=== PATIENT | male | born 1960 | race Caucasian/White ===

== ENCOUNTER 2019-08-17 11:28 | Emergency (ER) | payer OTHER ==
--- NOTE | 2019-08-17 12:19 | ER Document Report ---
ED Medical Screen (RME) - General Chief Complaint: Wound Infection Stated Complaint: OPEN WOUND Time Seen by Provider: 08/17/19 12:07 Notes: Patient is a 59-year-old male who presents emergency department with a chief complaint of right leg pain and swelling. Patient reports he has been battling the redness over the past 6 months to his right lower extremity. Patient reports initially he was on hospice but is not currently. Patient reports he was on hospice due to an enlarged heart. Patient was diagnosed with a DVT in the right lower extremity 6 months ago and was placed on Xarelto. Patient reports he has been off the Xarelto for 1 to 2 months. Patient reports low- grade fevers at home. Patient reports open wound to the right ankle. States this is not draining. TRAVEL OUTSIDE OF THE [place] IN LAST 30 DAYS: No Past Medical History - Social History Chew tobacco use (# tins/day): No Frequency of alcohol use: None Drug Abuse: None Physical Exam - Vital signs Vitals: Temp Pulse Resp BP Pulse Ox 98.5 F 93 20 175/85 H 99 08/17/19 11:49 08/17/19 11:49 08/17/19 11:49 08/17/19 11:49 08/17/19 11:49 - Extremities Notes: Erythematous, flaking skin, pitting edema noted to the right lower extremity. There is an open wound to the right lateral malleolus and a developing skin breakdown to the medial malleolus. Course - Re-evaluation Re-evalutation: 08/17/19 12:19 I have greeted and performed a rapid initial assessment of this patient. A comprehensive ED assessment and evaluation of the patient, analysis of test results and completion of the medical decision making process will be conducted by additional ED providers. - Vital Signs Vital signs: Temp Pulse Resp BP Pulse Ox 98.5 F 93 20 175/85 H 99 08/17/19 11:49 08/17/19 11:49 08/17/19 11:49 08/17/19 11:49 08/17/19 11:49
[2019-08-17 12:44] LABS: APPEARANCE,URINE CLEAR; BILIRUBIN,URINE NEGATIVE (NEGATIVE); COLOR,URINE YELLOW; GLUCOSE, URINE 50 mg/dL (NEGATIVE); KETONES,URINE NEGATIVE (NEGATIVE); LEUKOCYTE ESTERASE,URINE NEGATIVE (NEGATIVE); NITRITE,URINE NEGATIVE (NEGATIVE); PROTEIN,URINE >=500 mg/dL (NEGATIVE); URINE SPECIFIC GRAVITY 1.012; UROBILINOGEN,URINE NEGATIVE mg/dL (<2.0)
--- NOTE | 2019-08-17 12:47 | RADIOLOGY REPORT (SQ) ---
EXAM DESCRIPTION: ANKLE RIGHT COMPLETE COMPLETED DATE/TIME: 08/17/2019 12:38 pm REASON FOR STUDY: + pain, swelling, redness, open wound COMPARISON: None. NUMBER OF VIEWS: Three views. TECHNIQUE: AP, lateral, and oblique radiographic images acquired of the right ankle. LIMITATIONS: None. FINDINGS: MINERALIZATION: Normal. BONES: No acute fracture or dislocation. No worrisome bone lesions. JOINTS: No effusions. SOFT TISSUES: Soft tissue swelling about the medial ankle. Apparent soft tissue defect at the latera l ankle just superior to the lateral malleolus. No radiopaque foreign body. OTHER: Multiple circular radiodensities overlie the foot external to the patient. IMPRESSION: No evidence of acute bony abnormality or definitive findings of osteomyelitis. Soft tissue swelling about the medial ankle. Soft tissue defect along the lateral ankle, just superi or to the lateral malleolus. TECHNICAL DOCUMENTATION: JOB ID: [id number] [employer]- All Rights Reserved Reading location - IP/workstation name: [email or web address]
--- NOTE | 2019-08-17 12:49 | RADIOLOGY REPORT (SQ) ---
EXAM DESCRIPTION: FOOT RIGHT COMPLETE COMPLETED DATE/TIME: 08/17/2019 12:38 pm REASON FOR STUDY: + pain, swelling, redness, open wound COMPARISON: None. NUMBER OF VIEWS: Three views. TECHNIQUE: AP, lateral and oblique radiographic images acquired of the right foot. LIMITATIONS: None. FINDINGS: MINERALIZATION: Normal. BONES: No acute fracture or dislocation. No worrisome bone lesions. No definitive findings of osteo myelitis. Degenerative changes at scattered MTP and interphalangeal joints, greatest at the 1st MTP joint. Trigonal process. JOINTS: No dislocation. SOFT TISSUES: Soft tissue swelling about the foot. OTHER: No other significant finding. IMPRESSION: Soft tissue swelling about the foot without evidence of acute bony abnormality. TECHNICAL DOCUMENTATION: JOB ID: [id number] [employer]- All Rights Reserved Reading location - IP/workstation name: [email or web address]
[2019-08-17 12:59] LABS: ABSOLUTE BASOPHILS # (AUTO) 0.1 10^3/uL (0.0-0.2); ABSOLUTE EOSINOPHILS # (AUTO) 0.8 10^3/uL (0.0-0.6); ABSOLUTE LYMPHOCYTES (AUTO) 1.7 10^3/uL (0.5-4.7); ABSOLUTE MONOCYTES (AUTO) 0.8 10^3/uL (0.1-1.4); BASOPHILS % (AUTO) 0.9 % (0-2); EOSINOPHILS % (AUTO) 6.8 % (0-6); HEMATOCRIT 39.5 % (37.9-51.0); HEMOGLOBIN 13.7 g/dL (13.5-17.0); LYMPHOCYTES % (AUTO) 14.9 % (13-45); MEAN CORPUSCULAR HGB CONC 34.8 g/dL (32.0-36.0); MEAN CORPUSCULAR VOLUME 92 fl (80-97); MONOCYTES % (AUTO) 7.3 % (3-13); PLATELET COUNT 292 10^3/uL (150-450); RED BLOOD COUNT 4.29 10^6/uL (4.35-5.55); RED CELL DISTRIBUTION WIDTH 13.7 % (11.5-14.0); SEGMENTED NEUTROPHILS % (AUTO) 70.1 % (42-78); TOTAL CELLS COUNTED % (AUTO) 100 %; WHITE BLOOD COUNT 11.3 10^3/uL (4.0-10.5)
[2019-08-17 13:14] LABS: ALBUMIN 3.3 g/dL (3.5-5.0); ALKALINE PHOSPHATASE 105 U/L (38-126); ANION GAP 6 (5-19); ASPARTATE AMINO TRANSFERASE 19 U/L (17-59); BILIRUBIN,DIRECT 0.2 mg/dL (0.0-0.4); BILIRUBIN,TOTAL 0.5 mg/dL (0.2-1.3); BLOOD UREA NITROGEN 16 mg/dL (7-20); CARBON DIOXIDE 24 mmol/L (22-30); CHLORIDE 107 mmol/L (98-107); GLUCOSE 166 mg/dL (75-110); POTASSIUM 4.8 mmol/L (3.6-5.0); TOTAL PROTEIN 6.1 g/dL (6.3-8.2)
[2019-08-17] MEDS ORDERED: MORPHINE SULFATE 10 MG/ML INJ IV ONE ×2 (14:10→16:29)
--- NOTE | 2019-08-17 15:01 | RADIOLOGY REPORT (SQ) ---
EXAM DESCRIPTION: CHEST SINGLE VIEW COMPLETED DATE/TIME: 08/17/2019 2:44 pm REASON FOR STUDY: dyspnea COMPARISON: None. EXAM PARAMETERS: NUMBER OF VIEWS: One view. TECHNIQUE: Single frontal radiographic view of the chest acquired. RADIATION DOSE: NA LIMITATIONS: None. FINDINGS: LUNGS AND PLEURA: No opacities, masses or pneumothorax. No pleural effusion. MEDIASTINUM AND HILAR STRUCTURES: No masses. Contour normal. HEART AND VASCULAR STRUCTURES: Heart normal in size. Normal vasculature. BONES: No acute findings. HARDWARE: None in the chest. OTHER: No other significant finding. IMPRESSION: NO ACUTE RADIOGRAPHIC FINDING IN THE CHEST. TECHNICAL DOCUMENTATION: JOB ID: [id number] [employer]- All Rights Reserved Reading location - IP/workstation name: [email or web address]
--- NOTE | 2019-08-17 15:05 | EKG REPORT ---
SEVERITY:- ABNORMAL ECG - SINUS RHYTHM RIGHT BUNDLE BRANCH BLOCK ANTERIOR INFARCT, AGE INDETERMINATE : Confirmed by: Alexandra Whitehead MD 17-Aug-2019 15:04:25
--- NOTE | 2019-08-17 15:47 | RADIOLOGY REPORT (SQ) ---
EXAM DESCRIPTION: CTA CHEST COMPLETED DATE/TIME: 08/17/2019 3:28 pm REASON FOR STUDY: dyspnea, history of PE/DVT COMPARISON: Same day radiograph. TECHNIQUE: CT scan of the chest performed using helical scanning technique with dynamic intravenous contrast injection. Images reviewed with lung, soft tissue and bone windows. Reconstructed coronal and sagittal MPR images reviewed. Additional 3 dimensional post-processing performed to develop Maximal Intensity Projection images (OR P). All images stored on PACS. All CT scanners at this facility use dose modulation, iterative reconstruction, and/or weight based d osing when appropriate to reduce radiation dose to as low as reasonably achievable (ALARA). [facility]: Dose Right [facility]: CareDose [facility]: Dose Right [facility]: Teradose 4D [facility]: Audience.fm CONTRAST TYPE AND DOSE: contrast/concentration: Isovue 350.00 mg/ml; Total Contrast Delivered: 70.0 ml; Total Saline Delivered: 80.0 ml Contrast bolus optimized for the pulmonary arteries. Not diagnostic for the aorta. RENAL FUNCTION: Creatinine 0.81 RADIATION DOSE: CT Rad equipment meets quality standard of care and radiation dose reduction techniq ues were employed. CTDIvol: 19.8 - 25.5 mGy. DLP: 992 mGy-cm. . LIMITATIONS: None. FINDINGS: LUNGS AND PLEURA: No masses, infiltrates, or pneumothorax. No pleural effusions or pleura l calcifications. AORTA AND GREAT VESSELS: No aneurysm. Contrast bolus not optimized for the aorta. HEART: No pericardial effusion. Scattered coronary atherosclerosis. Likely LAD stent. PULMONARY ARTERIES: No emboli visualized in the main pulmonary arteries or the segmental branches. HILAR AND MEDIASTINAL STRUCTURES: No identified masses or abnormal nodes. HARDWARE: None in the chest. UPPER ABDOMEN: No significant findings. Limited exam. THYROID AND OTHER SOFT TISSUES: No masses. No adenopathy. BONES: Mild serpiginous thoracic curvature. 3D MIPS: Confirm above findings. OTHER: No other significant finding. IMPRESSION: No evidence of pulmonary embolus or other acute intrathoracic process. COMMENT: Quality ID # [id number]: Final reports with documentation of one or more dose reduction techniques (e.g., Automated exposure control, adjustment of the mA and/or kV according to patient size, use of iterative reconstruction technique) TECHNICAL DOCUMENTATION: JOB ID: [id number] [employer]- All Rights Reserved Reading location - IP/workstation name: [email or web address]
--- NOTE | 2019-08-17 16:13 | RADIOLOGY REPORT (SQ) ---
EXAM DESCRIPTION: VENOUS UNILATERAL LOWER COMPLETED DATE/TIME: 08/17/2019 3:54 pm REASON FOR STUDY: + RLE swelling, redness, hx. clots COMPARISON: CT chest 08/17/2019 TECHNIQUE: Dynamic and static white scale and color images acquired of the right leg venous system. S elected spectral images acquired with additional compression and augmentation maneuvers. The contrala teral common femoral vein and saphenofemoral junction were also imaged. Images stored on PACS. LIMITATIONS: None. FINDINGS: RIGHT COMMON FEMORAL: Normal phasicity, compression and augmentation. No visualized echogenic material on g ray scale. No defects on color images. FEMORAL: The mid and distal superficial femoral vein is occluded with hypoechoic clot, multiple colla terals and varicosities are present suggesting this is a chronic thrombosis. POPLITEAL: Normal compression, augmentation. No visualized echogenic material on white scale. No defec ts on color images. CALF VESSELS: Normal compression, augmentation. No visualized echogenic material on white scale. No de fects on color images. GSV and SSV: Normal compression, augmentation. No visualized echogenic material on white scale. No def ects on color images. ANY DEEP VENOUS INSUFFICIENCY: Not evaluated. ANY EVIDENCE OF POPLITEAL CYST: No. OTHER: No other significant finding. LEFT COMMON FEMORAL VEIN AND SAPHENOFEMORAL JUNCTION: Normal phasicity, compression and augmentation. No visualized echogenic material on white scale. No de fects on color images. IMPRESSION: Mid and distal superficial femoral vein is occluded with hypoechoic clot. There are col lateral venous vessels in the deep right thigh suggesting this is a chronic finding TECHNICAL DOCUMENTATION: JOB ID: [id number] [employer]- All Rights Reserved Reading location - IP/workstation name: [email or web address]
--- NOTE | 2019-08-17 17:19 | ER Document Report ---
ED General - General Chief Complaint: Wound Infection Stated Complaint: OPEN WOUND Time Seen by Provider: 08/17/19 12:07 Primary Care Provider: ANA OROSCO MD [ACTIVE STAFF] - Follow up as needed Notes: 59-year-old male presents with right lower extremity swelling/redness for 6 months. Patient also states he has an open necrotic ulcer to the right lateral malleolus that has been ongoing for 3 weeks. 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 Patient also states he is having some dyspnea for the past few days. Patient has a history of DVT and PE. Patient was on Xarelto however has not been on this for the past 2 months. Patient states his prescription was never renewed so he stopped taking it. Patient recently moved to the area and has not established care with a PCP. Patient denies any fevers, chills, nausea/vomiting, abdominal pain. TRAVEL OUTSIDE OF THE [place] IN LAST 30 DAYS: No Past Medical History - Social History Smoking Status: Never Smoker Chew tobacco use (# tins/day): No Frequency of alcohol use: None Drug Abuse: None Family History: None Patient has suicidal ideation: No Patient has homicidal ideation: No Review of Systems - Review of Systems Notes: Constitutional: Negative for fever. HENT: Negative for sore throat. Eyes: Negative for visual changes. Cardiovascular: Negative for chest pain. Respiratory: Negative for shortness of breath. Gastrointestinal: Negative for abdominal pain, vomiting or diarrhea. Genitourinary: Negative for dysuria. Musculoskeletal: Negative for back pain. Skin: Positive for necrotic ulcer. Negative for rash. Neurological: Negative for headaches, weakness or numbness. 10 point ROS negative except as marked above and in HPI. Physical Exam - Vital signs Vitals: Temp Pulse Resp BP Pulse Ox 98.5 F 93 20 175/85 H 99 08/17/19 11:49 08/17/19 11:49 08/17/19 11:49 08/17/19 11:49 08/17/19 11:49 - Notes Notes: GENERAL: Well-appearing, well-nourished and in no acute distress. HEAD: Atraumatic, normocephalic. EYES: Pupils equal round and reactive to light, extraocular movements intact, sclera anicteric, conjunctiva are normal. ENT: TMs normal, nares patent, oropharynx clear without exudates. Moist mucous membranes. NECK: Normal range of motion, supple without lymphadenopathy or JVD. LUNGS: Breath sounds clear to auscultation bilaterally and equal. No wheezes rales or rhonchi. HEART: Regular rate and rhythm without murmurs, rubs or gallops. ABDOMEN: Soft, nontender, normoactive bowel sounds. No guarding, no rebound. No masses appreciated. EXTREMITIES: Amputation on left side. Right lower leg is swollen with erythema and weeping. Necrotic ulcer on right lateral malleolus, approximately 3 cm, with minimal weeping. No pus drainage. Not hot to touch. NEUROLOGICAL: Cranial nerves II through XII grossly intact. Normal speech. PSYCH: Normal mood, normal affect. SKIN: Warm, Dry, normal turgor, no rashes or lesions noted. Course - Re-evaluation Re-evalutation: 08/17/19 59 y/o male presents for chronic skin infection to right lower leg and dyspnea. Nontoxic, well appearing. Afebrile. Pt also has a necrotic ulcer to right lateral malleolus. Pt states he had home health nurse who used to come out for wound care before he moved to [place]. Pt also states it has been "a long time" since he has been on antibiotics. Hx PE and DVT. Workup initiated to include infectious cause, DVT/PE rule out, and cardiac. Ultrasound shows DVT with collaterals appearing to be chronic in nature. CTA chest/abdomen showed no PE. No leukocytosis. Troponin 0.016. CMP reassuring. CXR negative. EKG shows no STEMI. Coordination of care also consulted and pt was given resources for PCP and insurance. Discussed all results with pt. I do not feel pt meets criteria for admission at this time. Discussed with attending, Dr. Borja, who agrees with plan of care. Discussed need for pt to follow up outpatient for management of chronic ulcer. Strict return precautions given/discussed. Pt given prescription for Keflex and instructed to finish all doses unless changed based on wound culture. Pt voices understanding and agrees with plan of care. - Vital Signs Vital signs: Temp Pulse Resp BP Pulse Ox 98.1 F 86 18 169/78 H 98 08/17/19 16:28 08/17/19 16:28 08/17/19 16:28 08/17/19 16:28 08/17/19 16:28 - Laboratory Result Diagrams: 08/17/19 12:40 08/17/19 12:40 Laboratory results interpreted by me: 08/17/19 08/17/19 08/17/19 11:45 12:40 12:40 WBC 11.3 H RBC 4.29 L Eos % (Auto) 6.8 H Absolute Eos (auto) 0.8 H Glucose 166 H Total Protein 6.1 L Albumin 3.3 L Urine Protein >=500 H Urine Glucose (UA) 50 H Urine Blood MODERATE H Discharge - Discharge Clinical Impression: Chronic ulcer of right lower extremity Qualifiers: Non-pressure ulcer stage: limited to breakdown of skin Qualified Code(s): L97.911 - Non-pressure chronic ulcer of unspecified part of right lower leg limited to breakdown of skin Condition: Stable Disposition: HOME, SELF-CARE Instructions: Antibiotic Ointment Protection ([facility]), Foot or Leg Ulcer ([facility]), Soap Cleansing ([facility]) Additional Instructions: Take Keflex as prescribed and finish all doses unless we call you to change your antibiotic based on your wound culture. Please follow up with PCP as referred in 3-5 days. Return to ER for any worsening symptoms, including worsening swelling, worsening redness, worsening ulcer, fever, pus drainage, or any other symptoms that are concerning to you. Prescriptions: Cephalexin [Keflex] 500 mg PO Q6 #40 capsule Referrals: ANA OROSCO MD [ACTIVE STAFF] - Follow up as needed
[2019-08-17 17:52] VITALS: BP 160/81
== END 2019-08-17 17:53 | disposition home or self-care (01) ==
LOC: ER 11:28
DX: L97.911 Non-pressure chronic ulcer of unspecified part of right lower leg limited to breakdown of skin (principal); S91.001A Unspecified open wound, right ankle, initial encounter; R06.00 Dyspnea, unspecified; X58.XXXA Exposure to other specified factors, initial encounter; Z89.512 Acquired absence of left leg below knee; Z86.718 Personal history of other venous thrombosis and embolism; Z86.711 Personal history of pulmonary embolism
CPT/HCPCS: 93005; 96376; 99284; 96374; 36415; 87040; 87070; 87205; 83605; 85025; 87077; 80053; 81001; 84484; 87186; 93971; 73610; 71045; 73630; 71275; 93010; J2270

== ENCOUNTER 2020-01-05 08:46 | Inpatient (IN) | payer MEDICAID, OTHER ==
[2020-01-05] MEDS ORDERED: NITROGLYCERIN 2% OINTMENT 1 GM PACKET TP ONE (10:24)
--- NOTE | 2020-01-05 10:27 | RADIOLOGY REPORT (SQ) ---
EXAM DESCRIPTION: CHEST SINGLE VIEW IMAGES COMPLETED DATE/TIME: 01/05/2020 9:30 am REASON FOR STUDY: cough COMPARISON: 08/17/2019 EXAM PARAMETERS: NUMBER OF VIEWS: One view. TECHNIQUE: Single frontal radiographic view of the chest acquired. RADIATION DOSE: NA LIMITATIONS: None. FINDINGS: LUNGS AND PLEURA: Patchy left basilar opacities with small left pleural effusion. Mild in terstitial prominence and central vascular congestion bilaterally. MEDIASTINUM AND HILAR STRUCTURES: No masses. Contour normal. HEART AND VASCULAR STRUCTURES: Normal heart size. Mild central vascular prominence. BONES: No acute findings. HARDWARE: None in the chest. OTHER: No other significant finding. IMPRESSION: Patchy left basilar opacities and small left effusion suggestive of pneumonia. Mild central vascular congestion without overt edema. TECHNICAL DOCUMENTATION: JOB ID: [id number] [employer]- All Rights Reserved Reading location - IP/workstation name: [email or web address]
[2020-01-05 11:40] LABS: ABSOLUTE BASOPHILS # (AUTO) 0.1 10^3/uL (0.0-0.2); ABSOLUTE EOSINOPHILS # (AUTO) 0.2 10^3/uL (0.0-0.6); ABSOLUTE LYMPHOCYTES (AUTO) 1.3 10^3/uL (0.5-4.7); ABSOLUTE MONOCYTES (AUTO) 0.5 10^3/uL (0.1-1.4); ABSOLUTE NEUT (AUTO) 6.1 10^3/uL (1.7-8.2); EOSINOPHILS % (AUTO) 2.6 % (0-6); HEMATOCRIT 41.5 % (37.9-51.0); HEMOGLOBIN 14.3 g/dL (13.5-17.0); LYMPHOCYTES % (AUTO) 15.6 % (13-45); MEAN CORPUSCULAR HEMOGLOBIN 30.4 pg (27.0-33.4); MEAN CORPUSCULAR HGB CONC 34.5 g/dL (32.0-36.0); MEAN CORPUSCULAR VOLUME 88 fl (80-97); MONOCYTES % (AUTO) 5.7 % (3-13); PLATELET COUNT 331 10^3/uL (150-450); RED CELL DISTRIBUTION WIDTH 13.3 % (11.5-14.0); SEGMENTED NEUTROPHILS % (AUTO) 75.1 % (42-78); TOTAL CELLS COUNTED % (AUTO) 100 %; WHITE BLOOD COUNT 8.1 10^3/uL (4.0-10.5)
[2020-01-05 11:41] LABS: VENOUS BLOOD BASE EXCESS -0.8 mmol/L; VENOUS BLOOD HCO3 28.1 mmol/L (20-32); VENOUS BLOOD PCO2 62.6 mmHg (35-63); VENOUS BLOOD PH 7.27 (7.30-7.42)
[2020-01-05] MEDS ORDERED: CEFTRIAXONE 2 GM/D5W RTU 2 GM/50 ML RTUPB IV ONE (11:42)
[2020-01-05] MEDS ORDERED: AZITHROMYCIN 250 MG TABLET PO ONE (11:42)
[2020-01-05 11:59] LABS: ALBUMIN 3.3 g/dL (3.5-5.0); ALKALINE PHOSPHATASE 141 U/L (38-126); ANION GAP 7 (5-19); ASPARTATE AMINO TRANSFERASE 23 U/L (17-59); BILIRUBIN,TOTAL 0.6 mg/dL (0.2-1.3); BLOOD UREA NITROGEN 20 mg/dL (7-20); CALCIUM 8.8 mg/dL (8.4-10.2); CARBON DIOXIDE 26 mmol/L (22-30); CHLORIDE 106 mmol/L (98-107); GLUCOSE 119 mg/dL (75-110); POTASSIUM 4.2 mmol/L (3.6-5.0)
[2020-01-05 12:12] LABS: TROPONIN I 0.035 ng/mL
--- NOTE | 2020-01-05 12:20 | ER Document Report ---
ED General - General Chief Complaint: Shortness Of Breath Stated Complaint: RESPIRATORY DISTRESS Time Seen by Provider: 01/05/20 08:47 Mode of Arrival: Ambulatory Information source: Patient TRAVEL OUTSIDE OF THE [place] IN LAST 30 DAYS: No - HPI Notes: Patient is brought in by ambulance complaining of several days of shortness of breath. Patient states he has had progressive shortness of breath and cough. Patient states he has had some mild chest pressure and discomfort. Nothing makes this better or worse. Is been mild to moderate intensity. It radiates across his chest. Is with exertion and better with rest. No fevers. No known coronavirus exposures. Paramedics state they found the patient with a room air saturation of 80%. They gave the patient a nebulizer treatment and placed on CPAP with significant improvement of his oxygen saturations into the low 90% range. - Related Data Allergies/Adverse Reactions: No Known Allergies Allergy (Unverified 01/05/20 09:23) Past Medical History - General Information source: Patient - Social History Smoking Status: Former Smoker Chew tobacco use (# tins/day): No Frequency of alcohol use: None Drug Abuse: None Family History: None Patient has suicidal ideation: No Patient has homicidal ideation: No Review of Systems - Review of Systems Constitutional: Malaise, Weakness. denies: Chills, Fever Cardiovascular: Chest pain. denies: Palpitations Respiratory: Cough, Short of breath -: Yes All other systems reviewed and negative Physical Exam - Vital signs Vitals: Pulse Ox 100 01/05/20 08:48 Interpretation: Tachypneic - General General appearance: Alert, Anxious In distress: Mild - HEENT Head: Normocephalic, Atraumatic Eyes: Normal Pupils: PERRL - Respiratory Respiratory status: Respiratory distress - mild Chest status: Nontender Breath sounds: Decreased air movement Chest palpation: Normal - Cardiovascular Rhythm: Regular Heart sounds: Normal auscultation Murmur: No - Abdominal Inspection: Normal Distension: No distension Bowel sounds: Normal Tenderness: Nontender Organomegaly: No organomegaly - Back Back: Normal, Nontender - Extremities General upper extremity: Normal inspection, Nontender, Normal color, Normal ROM, Normal temperature General lower extremity: Normal inspection, Nontender, Normal color, Normal ROM, Normal temperature, Normal weight bearing. No: Funmilayo's sign - Neurological Neuro grossly intact: Yes Cognition: Normal Orientation: AAOx4 Wilfred Coma Scale Eye Opening: Spontaneous [place] Coma Scale Verbal: Oriented [place] Coma Scale Motor: Obeys Commands Wilfred Coma Scale Total: 15 Speech: Normal Motor strength normal: LUE, RUE, LLE, RLE Sensory: Normal - Psychological Associated symptoms: Normal affect, Normal mood - Skin Skin Temperature: Warm Skin Moisture: Dry Skin Color: Normal Course - Re-evaluation Re-evalutation: Patient presents with shortness of breath. On arrival patient was on CPAP with saturations in low 90s but still tachypneic. Patient was placed on BiPAP with significant improvement of his respiratory rate and work of breathing. Patient has no known COVID exposures and does not have imaging consistent with COVID. I have not ordered a COVID test to be conservative but I doubt this is the cause of the patient's symptoms. He does have a pneumonia on x-ray and I have treated the patient with antibiotics. I have withheld fluids at this time. Because patient is not tachycardic. His blood pressure is actually elevated. In addition he has an elevated BNP. I have also held off on Lasix since the patient does not have any pulmonary edema on x-ray nor does he sound as if he has pulmonary edema. - Vital Signs Vital signs: Temp Pulse Resp BP Pulse Ox 98.4 F 20 177/85 H 93 01/05/20 09:17 01/05/20 10:19 01/05/20 10:19 01/05/20 10:19 - Laboratory Result Diagrams: 01/05/20 11:10 01/05/20 11:10 Laboratory results interpreted by me: 01/05/20 01/05/20 01/05/20 11:10 11:10 11:10 VBG pH 7.27 L Glucose 119 H Alkaline Phosphatase 141 H NT-Pro-B Natriuret Pep 6630 H Albumin 3.3 L - Diagnostic Test Radiology reviewed: Image reviewed, Reports reviewed - EKG Interpretation by Me EKG shows normal: Sinus rhythm Rate: Normal - 91 Rhythm: NSR [place]/QRS: No: [facility] Critical Care Note - Critical Care Note Total time excluding time spent on procedures (mins): 50 Comments: Approximately 50 minutes of critical care time were spent on this patient managing his hypercapnic, hypoxic pneumonia. This was spent doing multiple reassessments. It was spent discussing with consultants. It was spent reviewin g imaging and laboratory values as well as old records. Discharge - Discharge Clinical Impression: Hypoxia, Acute hypercapnic respiratory failure Pneumonia Qualifiers: Pneumonia type: due to unspecified organism Laterality: left Lung location: lower lobe of lung Qualified Code(s): J18.9 - Pneumonia, unspecified organism Condition: Serious Disposition: ADMITTED INPATIENT Admitting Provider: Linda (Hospitalist) Unit Admitted: [facility]
[2020-01-05] MEDS ORDERED: ONDANSETRON HCL INJ/PF 4 MG/2 ML SDV IV PRN (12:58)
[2020-01-05] MEDS ORDERED: ONDANSETRON 4 MG TAB.RAPDIS PO PRN (12:58)
[2020-01-05 13:11] LABS: APPEARANCE,URINE SLIGHTLY-CLOUDY; BILIRUBIN,URINE NEGATIVE (NEGATIVE); COLOR,URINE YELLOW; GLUCOSE, URINE 50 mg/dL (NEGATIVE); KETONES,URINE NEGATIVE (NEGATIVE); LEUKOCYTE ESTERASE,URINE NEGATIVE (NEGATIVE); NITRITE,URINE NEGATIVE (NEGATIVE); PROTEIN,URINE >=500 mg/dL (NEGATIVE); URINE SPECIFIC GRAVITY 1.022; UROBILINOGEN,URINE NEGATIVE mg/dL (<2.0)
[2020-01-05 13:32] LABS: URINE AMPHETAMINES SCREEN NEGATIVE; URINE BARBITURATES SCREEN NEGATIVE; URINE BENZODIAZEPINES SCREEN NEGATIVE; URINE COCAINE SCREEN NEGATIVE; URINE MARIJUANA (THC) SCREEN NEGATIVE; URINE METHADONE SCREEN NEGATIVE; URINE PHENCYCLIDINE SCREEN NEGATIVE
[2020-01-05 14:02] LABS: BLOOD UREA NITROGEN 19 mg/dL (7-20); CARBON DIOXIDE 26 mmol/L (22-30); CHLORIDE 109 mmol/L (98-107); GLUCOSE 109 mg/dL (75-110); POTASSIUM 3.8 mmol/L (3.6-5.0)
[2020-01-05 14:12] LABS: ANION GAP 2 (5-19)
[2020-01-05 15:32] LABS: A TYPE INFLUENZA AG NEGATIVE (NEGATIVE); B INFLUENZA AG NEGATIVE (NEGATIVE)
[2020-01-05] MEDS ORDERED: ALBUTEROL SULFATE HFA (90 MCG/PUFF) 8 GM MDI IH PRN (17:55)
--- NOTE | 2020-01-05 18:31 | PDOC H&P ---
History of Present Illness Admission Date/PCP: 01/05/20 13:14 History of Present Illness: CHERELLE VALDIVIA is a 59 year old male with past medical history of HTN, HLD, diet- controlled T2DM, COPD, CAD, history of [place] status post stents, tobacco abuse who presents after 2 weeks progressive shortness of breath/RCUZ consistent with previous COPD exacerbations. Per patient, he is also been out of all of his medications for at least 3 weeks which he states is due to [facility] refusing to fill his medications which were reportedly labeled that they could be refilled another 6 times before needing approval. On admission, patient is afebrile with a normal WBC. UA showed significant proteinuria and moderate blood but did not show infection. Chest x-ray showed patchy left basilar opacities and small left effusion suggestive of pneumonia as well as mild central vascular congestion without overt edema. Patient admitted for suspected COPD exacerbation versus CHF exacerbation versus coronavirus (notably less likely given lack of fever or lymphopenia or new/worse cough). Coronavirus swab sent and is pending on admission. Past Medical History Cardiac Medical History: Reports: Coronary Artery Disease, Myocardial Infarction, Hyperlipidema, Hypertension Pulmonary Medical History: Reports: Chronic Obstructive Pulmonary Disease (COPD), Respiratory Failure Neurological Medical History: Reports: Ischemic CVA Endocrine Medical History: Reports: Diabetes Mellitus Type 2 - Diet-controlled Renal/ Medical History: Reports: None Malignancy Medical History: Reports: None GI Medical History: Reports: None Psychiatric Medical History: Reports: Depression, Tobacco Dependency Past Surgical History Past Surgical History: Reports: Coronary Stent Social History Information Source: Patient, Emergency Med Personnel, [facility] Records Lives with: Family Smoking Status: Current Some Day Smoker Electronic Cigarette use?: No Frequency of Alcohol Use: None Hx Recreational Drug Use: No Drugs: None Hx Prescription Drug Abuse: No - Advance Directive Resuscitation Status: Do Not Resuscitate Surrogate healthcare decision maker:: Daughter María Elena Family History Family History: None, CAD, CVA, Hypertension, Malignancy Parental Family History Reviewed: Yes Children Family History Reviewed: Yes Sibling(s) Family History Reviewed.: Yes Medication/Allergy Home Medications: Cephalexin [Keflex] 500 mg PO Q6 #40 capsule 08/17/19 Allergies/Adverse Reactions: No Known Allergies Allergy (Unverified 01/05/20 09:23) Review of Systems All systems: reviewed and no additional remarkable complaints except as stated - Per HPI, otherwise negative Physical Exam Vital Signs: Temp Pulse Resp BP Pulse Ox 98.7 F 90 19 156/91 H 95 01/05/20 15:21 01/05/20 16:00 01/05/20 15:21 01/05/20 15:21 01/05/20 15:21 Intake & Output 01/04/20 01/05/20 01/06/20 06:59 06:59 06:59 Intake Total 50 Balance 50 Weight 101.151 kg General appearance: PRESENT: no acute distress, well-developed, well-nourished Head exam: PRESENT: atraumatic, normocephalic Eye exam: PRESENT: conjunctiva pink Mouth exam: PRESENT: moist Respiratory exam: PRESENT: crackles - Mild, unlabored, wheezes. ABSENT: accessory muscle use, tachypnea Cardiovascular exam: PRESENT: RRR. ABSENT: diastolic murmur, rubs, systolic murmur GI/Abdominal exam: PRESENT: normal bowel sounds, soft. ABSENT: distended, guarding, mass, organolmegaly, rebound, tenderness Rectal exam: PRESENT: deferred Extremities exam: PRESENT: pedal edema, +2 edema Musculoskeletal exam: PRESENT: other - LLE amputation Neurological exam: PRESENT: alert, awake, oriented to person, oriented to place, oriented to time, oriented to situation Psychiatric exam: PRESENT: appropriate affect, normal mood Skin exam: PRESENT: dry, intact, warm Results Laboratory Results: 01/05/20 11:10 01/05/20 13:27 01/05/20 01/05/20 01/05/20 11:10 11:10 11:10 WBC 8.1 RBC 4.70 Hgb 14.3 Hct 41.5 MCV 88 MCH 30.4 MCHC 34.5 RDW 13.3 Plt Count 331 Seg Neutrophils % 75.1 VBG pH VBG pCO2 VBG HCO3 VBG Base Excess Sodium 138.6 Potassium 4.2 Chloride 106 Carbon Dioxide 26 Anion Gap 7 BUN 20 Creatinine 1.01 Est GFR ( Amer) > 60 Glucose 119 H Lactic Acid 1.0 Calcium 8.8 Total Bilirubin 0.6 AST 23 Alkaline Phosphatase 141 H Total Protein 7.0 Albumin 3.3 L Urine Color Urine Appearance Urine pH Ur Specific [place] Urine Protein Urine Glucose (UA) Urine Ketones Urine Blood Urine Nitrite Ur Leukocyte Esterase Urine WBC (Auto) Urine RBC (Auto) 01/05/20 01/05/20 01/05/20 11:10 12:55 13:27 WBC RBC Hgb Hct MCV MCH MCHC RDW Plt Count Seg Neutrophils % VBG pH 7.27 L VBG pCO2 62.6 VBG HCO3 28.1 VBG Base Excess -0.8 Sodium Potassium Chloride Carbon Dioxide Anion Gap BUN Creatinine Est GFR ( Amer) Glucose Lactic Acid 1.0 Calcium Total Bilirubin AST Alkaline Phosphatase Total Protein Albumin Urine Color YELLOW Urine Appearance SLIGHTLY-CLOUDY Urine pH 5.0 Ur Specific [place] 1.022 Urine Protein >=500 H Urine Glucose (UA) 50 H Urine Ketones NEGATIVE Urine Blood MODERATE H Urine Nitrite NEGATIVE Ur Leukocyte Esterase NEGATIVE Urine WBC (Auto) 4 Urine RBC (Auto) 2 01/05/20 13:27 WBC RBC Hgb Hct MCV MCH MCHC RDW Plt Count Seg Neutrophils % VBG pH VBG pCO2 VBG HCO3 VBG Base Excess Sodium 137.1 Potassium 3.8 Chloride 109 H Carbon Dioxide 26 Anion Gap 2 L BUN 19 Creatinine 0.98 Est GFR ( Amer) > 60 Glucose 109 Lactic Acid Calcium 8.0 L Total Bilirubin AST Alkaline Phosphatase Total Protein Albumin Urine Color Urine Appearance Urine pH Ur Specific [place] Urine Protein Urine Glucose (UA) Urine Ketones Urine Blood Urine Nitrite Ur Leukocyte Esterase Urine WBC (Auto) Urine RBC (Auto) 01/05/20 11:10 Troponin I 0.035 NT-Pro-B Natriuret Pep 6630 H Impressions: Chest X-Ray 01/05/20 08:48 IMPRESSION: Patchy left basilar opacities and small left effusion suggestive of pneumonia. Mild central vascular congestion without overt edema. Assessment and Plan - Diagnosis (1) COPD exacerbation Is this a current diagnosis for this admission?: Yes Plan: Uses 3 L nasal cannula at home at baseline Target 89 to 94% oxygen saturation and COPD patient Avoid nebulizer and BiPAP until we rule out coronavirus Breo and albuterol started 5 days of prednisone steroids Azithromycin (2) Pneumonia Qualifiers: Pneumonia type: due to unspecified organism Laterality: left Lung location: lower lobe of lung Qualified Code(s): J18.9 - Pneumonia, unspecified organism Is this a current diagnosis for this admission?: Yes Plan: Suspect community-acquired versus atypical Seen on chest x-ray Consider CT chest Ceftriaxone/azithromycin Respiratory culture Supplemental oxygen, inhalers, bronchial hygiene as above (3) CAD (coronary artery disease) Is this a current diagnosis for this admission?: Yes Plan: Status post coronary stents per patient Echocardiogram Aspirin/statin, per patient he has been taken off Plavix by his physician for some time now (4) HTN (hypertension) Is this a current diagnosis for this admission?: Yes (5) HLD (hyperlipidemia) Is this a current diagnosis for this admission?: Yes (6) T2DM (type 2 diabetes mellitus) Is this a current diagnosis for this admission?: Yes (7) History of stroke Is this a current diagnosis for this admission?: Yes Plan: Aspirin/statin Has some baseline residual bilateral upper extremity weakness (8) Suspected 2019 novel coronavirus infection Is this a current diagnosis for this admission?: Yes Plan: Coronavirus test sent on admission (9) Acute on chronic respiratory failure with hypoxemia Is this a current diagnosis for this admission?: Yes Plan: Multifactorial due to medication noncompliance, COPD exacerbation, pneumonia Uses 3 L nasal cannula at home at baseline Target 89 to 94% oxygen saturation and COPD patient Avoid nebulizer and BiPAP until we rule out coronavirus Breo and albuterol started 5 days of prednisone steroids (10) COPD (chronic obstructive pulmonary disease) Is this a current diagnosis for this admission?: Yes (11) DVT (deep venous thrombosis) Is this a current diagnosis for this admission?: Yes Plan: Per patient, 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 Patient states he was on Xarelto, but was taken off this medication and has not followed up with his vascular surgeon; he does not know how or why he was taken off this medication BLE PVL to look for DVTs; per patient, these had resolved previously but he feels like they may have returned due to his leg swelling Plan to restart oral anticoagulant if he has DVTs in his legs Get CTPA to rule out PEs as a source of his hypoxemia - Time Time Spent with patient: 35 or more minutes Medications reviewed and adjusted accordingly: Yes Anticipated discharge: Home Within: within 72 hours - Inpatient Certification Based on my medical assessment, after consideration of the patient's comorbidities, presenting symptoms, or acuity I expect that the services needed warrant INPATIENT care.: Yes I certify that my determination is in accordance with my understanding of Medicare's requirements for reasonable and necessary INPATIENT services [42 CFR 412.3e].: Yes Medical Necessity: Significant Comorbidiites Make Outpatient Treatment Too Risk y, Need Close Monitoring Due to Risk of Patient Decompensation, Need for IV Antibiotics, Risk of Complication if Not Cared For in Hospital, Risk of Diagnosis Which Will Require Inpatient Eval/Care/Monitoring
--- NOTE | 2020-01-05 18:32 | ADVANCED CARE ---
- Diagnosis (1) COPD exacerbation Diagnosis Current: Yes (2) Pneumonia Diagnosis Current: Yes (3) CAD (coronary artery disease) Diagnosis Current: Yes (4) HTN (hypertension) Diagnosis Current: Yes (5) HLD (hyperlipidemia) Diagnosis Current: Yes (6) T2DM (type 2 diabetes mellitus) Diagnosis Current: Yes (7) History of stroke Diagnosis Current: Yes (8) Suspected 2019 novel coronavirus infection Diagnosis Current: Yes (9) Acute on chronic respiratory failure with hypoxemia Diagnosis Current: Yes (10) COPD (chronic obstructive pulmonary disease) Diagnosis Current: Yes (11) DVT (deep venous thrombosis) Diagnosis Current: Yes Attendance: Patient Resuscitation Status: Do Not Resuscitate Discussion: All aspects of CODE STATUS discussed including chest compressions/intubation/cardioversion and patient states he would like to be DN R/DNI. He designates his daughter and she has his M POA. Time Spent: 17 minutes
[2020-01-05] MEDS ORDERED: ALBUTEROL SULFATE HFA (90 MCG/PUFF) 200 PUFF/8.5 GM MDI IH PRN (18:49)
--- NOTE | 2020-01-05 21:28 | RADIOLOGY REPORT (SQ) ---
INDICATION: multiple prior dvt. PROCEDURE: Real-time grayscale, color, and pulse Doppler ultrasound imaging of the bilateral lower extremity deep venous system was performed. 65 images. COMPARISON: August 17, 2019 FINDINGS: Right: Nonocclusive thrombus within the common femoral vein. Superficial femoral vein demonstrates thrombus both occlusive and nonocclusive. Popliteal vein demonstrates thrombus both occlusive and nonocclusive. The deep veins of the calf are not well seen. When compared to prior, the thrombus within the common femoral vein appears to be progressive. The popliteal vein thrombosis is also progressive. Left: Nonocclusive thrombus is identified within the common femoral vein. The superficial femoral vein demonstrates both occlusive and nonocclusive thrombus.. This disease is progressive from prior. There is no imaging popliteal and distal. IMPRESSION: Occlusive and nonocclusive deep venous thrombosis identified bilaterally common femoral to distal. This is progressive when compared to prior..
[2020-01-05] MEDS: ATORVASTATIN CALCIUM 40 MG TABLET PO SCH (22:11)
[2020-01-05] MEDS: ENOXAPARIN SODIUM INJ 100 MG/1 ML DISP.SYRIN SUBCUT SCH (22:11)
[2020-01-05] MEDS: FUROSEMIDE INJ/PF 20 MG/2 ML SDV IV SCH (22:13)
--- NOTE | 2020-01-05 23:10 | XCELERA REPORT ---
[address] [address] Transthoracic Echocardiogram Report Name: CHERELLE VALDIVIA Age: 59 yrs Gender: Male : 1960 Patient Status: Inpatient Patient Location: [address] [place] [address] Study Date: 01/05/2020 07:11 PM Height: 72 in Weight: 223 lb BSA: 2.2 m2 Procedure: A complete two-dimensional transthoracic echocardiogram was performed (2D, M-mode, spectral and color flow Doppler). The study was technically difficult with many images being suboptimal in quality. Reason For Study: CHF Ordering Physician: LIBORIO QUISPE Performed By: Heather Burnham Interpretation Summary LEFT VENTRICLE: LV Systolic function: LVEF is felt to be mild depressed at approximately 45%. LV Diastolic Function: Grade II diastolic dysfunction noted. Wall motion : apex not well visualised but is felt to be hypokinetic. Left ventricular chamber size : is within normal limit. Left ventricular wall thickness : is increased indicative of Mild LVH. RIGHT VENTRICLE: RV systolic function : is felt to be within normal limit. Right Ventricle Size : is within normal limits. LEFT ATRIUM size : is mildly dilated. RIGHT ATRIUM size : is within normal limit. INTER ATRIAL SEPTUM : No definite atrial septal defect noted however a small PFO could be missed. AORTIC ROOT : seems to be within normal limits. Ascending aorta is not well visualized. INFERIOR VENA CAVA: borderline dilated with normal respiratory phasic variation. VALVES: MITRAL VALVE : Leaflets are mildly thickened. Mobility seems to be within normal limits. Mitral Regurgitation : trace to mild mitral regurgitation is noted. Mitral Stenosis: No mitral stenosis noted. Mitral valve prolapse : none noted. AORTIC VALVE: seems to be trileaflet with mild thickening but adequate excursion. Aortic stenosis : No aortic stenosis noted. Aortic regurgitation : No aortic incompetence noted. TRICUSPID VALVE : mobility and structures within normal limit. Tricuspid stenosis : no tricuspid stenosis noted. Tricuspid regurgitation : Trace tricuspid regurgitation noted. Estimated RVSP : cannot be accurately commented upon but possibly at upper limit of normal. PULMONARY VALVE : was not well visualized but no significant abnormalities suspected. Pulmonary stenosis : no pulmonary stenosis noted. Pulmonary regurgitation : no significant pulmonary regurgitation noted. MASSES AND THROMBUS : No definite intracardiac thrombus or masses are noted. PERICARDIUM: No pericardial effusion was noted. IMPRESSION : 1. Mild to moderately depressed LVEF, best estimated at approximately 45%. 2. Mild LVH noted 3. Grade II [mild] Diastolic Dysfunction noted. 4. No significant valvular stenosis or regurgitation noted. 5. LA is mildly dilated. 6. Study was technically difficult therefore clinical correlation is requested. MMode/2D Measurements & Calculations RVDd: 2.5 cm LVIDd: 5.3 cm FS: 15.4 % Ao root diam: 2.6 cm IVSd: 1.2 cm LVIDs: 4.5 cm EDV(Teich): 138.1 ml Ao root area: 5.5 cm2 LVPWd: 1.1 cm ESV(Teich): 93.7 ml LA dimension: 3.9 cm EF(Teich): 32.2 % Doppler Measurements & Calculations MV E max urmila: MV P1/2t max urmila: Ao V2 max: LV V1 max P.3 cm/sec 109.7 cm/sec 136.7 cm/sec 5.8 mmHg MV P1/2t: 88.7 msec Ao max PG: LV V1 max: MVA(P1/2t): 2.5 cm2 7.5 mmHg 119.9 cm/sec MV dec slope: 362.2 cm/sec2 MV dec time: 0.11 sec MV P1/2t-pr_phl: 88.7 msec : LIBORIO QUISPE Shyamal
--- NOTE | 2020-01-06 07:21 | EKG REPORT ---
SEVERITY:- ABNORMAL ECG - SINUS RHYTHM CONSIDER ANTEROSEPTAL INFARCT ABNORMAL T, CONSIDER ISCHEMIA, LATERAL LEADS BORDERLINE PROLONGED QT INTERVAL : Confirmed by: Aakash Smyth 06-Jan-2020 07:20:59
[2020-01-06 07:30] LABS: ABSOLUTE BASOPHILS # (AUTO) 0.1 10^3/uL (0.0-0.2); ABSOLUTE EOSINOPHILS # (AUTO) 0.3 10^3/uL (0.0-0.6); ABSOLUTE LYMPHOCYTES (AUTO) 1.3 10^3/uL (0.5-4.7); ABSOLUTE MONOCYTES (AUTO) 0.4 10^3/uL (0.1-1.4); ABSOLUTE NEUT (AUTO) 5.7 10^3/uL (1.7-8.2); BASOPHILS % (AUTO) 1.2 % (0-2); EOSINOPHILS % (AUTO) 4.3 % (0-6); HEMATOCRIT 40.4 % (37.9-51.0); LYMPHOCYTES % (AUTO) 16.4 % (13-45); MEAN CORPUSCULAR HEMOGLOBIN 30.1 pg (27.0-33.4); MEAN CORPUSCULAR HGB CONC 34.6 g/dL (32.0-36.0); MEAN CORPUSCULAR VOLUME 87 fl (80-97); MONOCYTES % (AUTO) 5.6 % (3-13); PLATELET COUNT 359 10^3/uL (150-450); RED BLOOD COUNT 4.64 10^6/uL (4.35-5.55); RED CELL DISTRIBUTION WIDTH 13.1 % (11.5-14.0); SEGMENTED NEUTROPHILS % (AUTO) 72.5 % (42-78); TOTAL CELLS COUNTED % (AUTO) 100 %; WHITE BLOOD COUNT 7.8 10^3/uL (4.0-10.5)
[2020-01-06 07:46] LABS: TRIGLYCERIDES 122 mg/dL (<150)
[2020-01-06 07:57] LABS: DIRECT LDL 177 mg/dL (<100)
[2020-01-06] MEDS ORDERED: DEXTROSE 50%-WATER SYRINGE 25 GM/50 ML DOSE IV PRN (09:00)
[2020-01-06] MEDS ORDERED: GLUCAGON,HUMAN RECOMB 1 MG INJ IM PRN (09:00)
[2020-01-06] MEDS ORDERED: DEXTROSE 40% GEL 15 GM TUBE X 2 PO PRN (09:00)
[2020-01-06] MEDS ORDERED: DEXTROSE 40% GEL 15 GM TUBE PO PRN (09:00)
[2020-01-06] MEDS ORDERED: DEXTROSE 50%-WATER SYRINGE 12.5 GM/25 ML DOSE IV PRN (09:00)
[2020-01-06] MEDS: FLUTICASONE/VILANTEROL 100-25 MCG/DOSE IH SCH (09:45)
[2020-01-06] MEDS: DOCUSATE SODIUM 100 MG CAPSULE PO SCH (09:45)
[2020-01-06] MEDS: ENOXAPARIN SODIUM INJ 100 MG/1 ML DISP.SYRIN SUBCUT SCH ×2 (09:45→21:28)
[2020-01-06] MEDS: FUROSEMIDE INJ/PF 20 MG/2 ML SDV IV SCH (09:45)
[2020-01-06] MEDS: ASPIRIN 81 MG TABLET, CHEWABLE PO SCH (09:45)
[2020-01-06] MEDS ORDERED: AZITHROMYCIN INJ 500 MG VIAL IV SCH (10:00)
[2020-01-06] MEDS ORDERED: LISINOPRIL 10 MG TABLET PO SCH (10:00)
[2020-01-06] MEDS ORDERED: ENOXAPARIN SODIUM INJ 40 MG/0.4 ML DISP.SYRIN SUBCUT SCH (10:00)
[2020-01-06] MEDS: CEFTRIAXONE 2 GM/D5W RTU 2 GM/50 ML RTUPB IV SCH (10:45)
[2020-01-06] MEDS: INSULIN LISPRO 100 UNIT/ML 3 ML VIAL SUBCUT SCH ×3 (12:13→21:31)
--- NOTE | 2020-01-06 14:33 | PDOC PROGRESS REPORT ---
Subjective Progress Note for:: 01/06/20 Subjective:: Patient seems anxious today. I explained his medical problems to him which I suspect he was at least partially aware of but has perhaps chosen to forget about them as he states he is simply trying to focus on spending time with his kids rather than his medical problems. 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 He does have T2DM with an A1c of 7 and I explained to him that diabetes typically does not go away. His lipids are elevated and he is been started on a statin here. PVL of his legs was positive for multiple DVTs. Upon further questioning, patient admits that he has been having recurrent DVT since he was a teenager. This begs the question further why he was ever supposedly taken off his oral anticoagulant given he denies any history of significant bleeding events. He cannot give me much detail at all regarding this. Rhinovirus test is still pending. This afternoon, patient had a run of what looks to be polymorphic V. tach and then his EKG showed a new RBBB and first-degree AV block. Patient did not have chest pain but did experience some nausea. I called Dr. Avila in cardiology and discussed the case with him in detail. He will be seeing the patient this afternoon and consult. Appreciate his help. Cardiac enzymes are pending while the patient goes downstairs for his CTPA. Physical Exam Vital Signs: Temp Pulse Resp BP Pulse Ox 99.0 F 95 20 147/68 H 97 01/06/20 11:38 01/06/20 11:38 01/06/20 11:38 01/06/20 11:38 01/06/20 11:38 Intake & Output 01/05/20 01/06/20 01/07/20 06:59 06:59 06:59 Intake Total 2325 510 Output Total 1999 300 Balance 325 210 Weight 101.7 kg General appearance: PRESENT: no acute distress, well-developed, well-nourished Head exam: PRESENT: atraumatic, normocephalic Eye exam: PRESENT: conjunctiva pink Mouth exam: PRESENT: moist Psychiatric exam: PRESENT: anxious, normal mood Additional comments: Limited physical exam due to patient under suspicion for coronavirus infection. Virtual assessment using computer on [employer] with WebCam attachment and remote tablet was utilized for this encounter. Results Laboratory Results: 01/06/20 06:50 01/05/20 13:27 01/06/20 01/06/20 01/06/20 06:50 06:50 06:50 WBC 7.8 RBC 4.64 Hgb 14.0 Hct 40.4 MCV 87 MCH 30.1 MCHC 34.6 RDW 13.1 Plt Count 359 Seg Neutrophils % 72.5 Phosphorus 5.0 H Magnesium 1.9 Triglycerides 122 Cholesterol 229.20 H LDL Cholesterol Direct 177 H VLDL Cholesterol 24.0 HDL Cholesterol 43 TSH 6.35 H 01/05/20 11:10 Troponin I 0.035 NT-Pro-B Natriuret Pep 6630 H Impressions: Venous Doppler Study 01/05/20 00:00 IMPRESSION: Occlusive and nonocclusive deep venous thrombosis identified bilaterally common femoral to distal. This is progressive when compared to prior.. Chest X-Ray 01/05/20 08:48 IMPRESSION: Patchy left basilar opacities and small left effusion suggestive of pneumonia. Mild central vascular congestion without overt edema. Assessment and Plan - Diagnosis (1) COPD exacerbation Is this a current diagnosis for this admission?: Yes Plan: Uses 3 L nasal cannula at home at baseline Target 89 to 94% oxygen saturation and COPD patient Avoid nebulizer and BiPAP until we rule out coronavirus Breo and albuterol started 5 days of prednisone steroids Azithromycin 01/06/2020 Breathing seems to be about the same as yesterday intermittently sometimes worse. Patient does note that when he uses his inhalers he does see some improvement but this is not particularly long-lasting. Continue inhalers, can start using nebulizer treatments when his coronavirus test is negative (2) Pneumonia Qualifiers: Pneumonia type: due to unspecified organism Laterality: left Lung location: lower lobe of lung Qualified Code(s): J18.9 - Pneumonia, unspecified organism Is this a current diagnosis for this admission?: Yes Plan: Suspect community-acquired versus atypical Seen on chest x-ray Consider CT chest Ceftriaxone/azithromycin Respiratory culture Supplemental oxygen, inhalers, bronchial hygiene as above 01/06/2020 CTPA pending to look for possible organizing pneumonia or lung abscess could be causing persistent infection and respiratory symptoms; I am suspicious that he may have a large burden of clots in his lungs that would be largely responsible for his respiratory symptoms rather than infection (3) CAD (coronary artery disease) Is this a current diagnosis for this admission?: Yes (4) HTN (hypertension) Is this a current diagnosis for this admission?: Yes (5) HLD (hyperlipidemia) Is this a current diagnosis for this admission?: Yes (6) T2DM (type 2 diabetes mellitus) Is this a current diagnosis for this admission?: Yes Plan: A1c 7 Accu-Cheks, L DCI Can probably be well controlled on oral medications alone at discharge, doubt he will need insulin long-term (7) History of stroke Is this a current diagnosis for this admission?: Yes (8) Suspected 2019 novel coronavirus infection Is this a current diagnosis for this admission?: Yes Plan: Coronavirus test sent on admission Test still pending as of 01/05 (9) Acute on chronic respiratory failure with hypoxemia Is this a current diagnosis for this admission?: Yes (10) COPD (chronic obstructive pulmonary disease) Is this a current diagnosis for this admission?: Yes (11) DVT (deep venous thrombosis) Is this a current diagnosis for this admission?: Yes Plan: 01/05/2020 Per patient, 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 Patient states he was on Xarelto, but was taken off this medication and has not followed up with his vascular surgeon; he does not know how or why he was taken off this medication BLE PVL to look for DVTs; per patient, these had resolved previously but he feels like they may have returned due to his leg swelling Plan to restart oral anticoagulant if he has DVTs in his legs Get CTPA to rule out PEs as a source of his hypoxemia 01/06/2020 PVL BLE showed multiple DVTs in both legs CTPA pending today Started on full strength Lovenox - Time Time Spent with patient: 35 or more minutes Medications reviewed and adjusted accordingly: Yes - Inpatient Certification Based on my medical assessment, after consideration of the patient's comorbiditi es, presenting symptoms, or acuity I expect that the services needed warrant INPATIENT care.: Yes I certify that my determination is in accordance with my understanding of [facility]'s requirements for reasonable and necessary INPATIENT services [42 CFR 412.3e].: Yes Medical Necessity: Significant Comorbidiites Make Outpatient Treatment Too Risky, Need Close Monitoring Due to Risk of Patient Decompensation, Need for IV Antibiotics, Risk of Complication if Not Cared For in Hospital, Risk of Diagnosis Which Will Require Inpatient Eval/Care/Monitoring
[2020-01-06] MEDS ORDERED: FUROSEMIDE INJ/PF 20 MG/2 ML SDV IV SCH (14:49)
--- NOTE | 2020-01-06 15:20 | RADIOLOGY REPORT (SQ) ---
EXAM DESCRIPTION: CTA CHEST IMAGES COMPLETED DATE/TIME: 01/06/2020 3:01 pm REASON FOR STUDY: PE, possible coronavirus pneumonia COMPARISON: 08/17/2019 TECHNIQUE: CT scan of the chest performed using helical scanning technique with dynamic intravenous contrast injection. Images reviewed with lung, soft tissue and bone windows. Reconstructed coronal and sagittal MPR images reviewed. Additional 3 dimensional post-processing performed to develop Maximal Intensity Projection images (VT P). All images stored on PACS. All CT scanners at this facility use dose modulation, iterative reconstruction, and/or weight based d osing when appropriate to reduce radiation dose to as low as reasonably achievable (ALARA). [facility]: Dose Right [facility]: CareDose [facility]: Dose Right [facility]: Teradose 4D [facility]: Mutualink CONTRAST TYPE AND DOSE: contrast/concentration: Isovue 350.00 mg/ml; Total Contrast Delivered: 63.0 ml; Total Saline Delivered: 70.0 ml Contrast bolus adequate for pulmonary arteries and aorta. RENAL FUNCTION: Creatinine 0.98 RADIATION DOSE: CT Rad equipment meets quality standard of care and radiation dose reduction techniq ues were employed. CTDIvol: 9.4 - 15.0 mGy. DLP: 626 mGy-cm. . LIMITATIONS: None. FINDINGS: LUNGS AND PLEURA: Small bilateral pleural effusions and bibasilar consolidation, likely at electasis. Mild interlobular septal thickening and scattered areas of minimal ground-glass attenuati on. There are small more focal nodular opacities measuring less than 5 mm bilaterally. No pneumotho rax. AORTA AND GREAT VESSELS: No aneurysm. No dissection. HEART: Cardiomegaly. Small pericardial effusion. Scans scattered coronary atherosclerosis with LAD stent. PULMONARY ARTERIES: No emboli visualized in the main pulmonary arteries or the segmental branches. HILAR AND MEDIASTINAL STRUCTURES: Shotty mediastinal nodes with a few mildly enlarged nodes. There i s a right paratracheal node measuring 12 mm (series 3, image 24). Enlarged right hilar node measurin g 18 mm (series 3, image 52). HARDWARE: None in the chest. UPPER ABDOMEN: No significant findings. Limited exam. THYROID AND OTHER SOFT TISSUES: No masses. No adenopathy. BONES: No acute or significant finding. 3D MIPS: Confirm above findings. OTHER: No other significant finding. IMPRESSION: 1. No evidence of pulmonary embolus. 2. Cardiomegaly, small bilateral effusions and bibasilar consolidation, likely atelectasis although infection not excluded. Additional mild interlobular septal thickening and minimal ground-glass opac ities may represent element of mild interstitial edema. 3. Mediastinal and right hilar adenopathy possibly reactive although recommend 3-6 month follow-up t o ensure resolution. COMMENT: Quality ID # [id number]: Final reports with documentation of one or more dose reduction techniques (e.g., Automated exposure control, adjustment of the mA and/or kV according to patient size, use of iterative reconstruction technique) TECHNICAL DOCUMENTATION: JOB ID: [id number] 2010 [employer]- All Rights Reserved Reading location - IP/workstation name: [email or web address]
--- NOTE | 2020-01-06 15:25 | RADIOLOGY REPORT (SQ) ---
EXAM DESCRIPTION: CHEST SINGLE VIEW IMAGES COMPLETED DATE/TIME: 01/06/2020 3:07 pm REASON FOR STUDY: chest pain COMPARISON: EXAM PARAMETERS: NUMBER OF VIEWS: One view. TECHNIQUE: Single frontal radiographic view of the chest acquired. RADIATION DOSE: NA LIMITATIONS: None. FINDINGS: LUNGS AND PLEURA: Stable patchy left basilar airspace disease and small effusion. Minimal ill-defined right basilar opacities. No pneumothorax. MEDIASTINUM AND HILAR STRUCTURES: No masses. Contour normal. HEART AND VASCULAR STRUCTURES: Normal heart size. Central vascular prominence. BONES: No acute findings. HARDWARE: None in the chest. OTHER: No other significant finding. IMPRESSION: Mild bibasilar opacities and small effusions, left greater than right. TECHNICAL DOCUMENTATION: JOB ID: [id number] 2010 [employer]- All Rights Reserved Reading location - IP/workstation name: [email or web address]
[2020-01-06 15:31] LABS: CREATINE KINASE MB 11.1 ng/mL (<4.55); TROPONIN I 0.028 ng/mL
[2020-01-06 16:15] LABS: ANION GAP 6 (5-19); BLOOD UREA NITROGEN 25 mg/dL (7-20); CALCIUM 8.2 mg/dL (8.4-10.2); CARBON DIOXIDE 29 mmol/L (22-30); CHLORIDE 102 mmol/L (98-107); GLUCOSE 147 mg/dL (75-110); POTASSIUM 4.4 mmol/L (3.6-5.0)
--- NOTE | 2020-01-06 16:15 | PDOC CONSULTATION ---
Consultation Consult Date: 01/06/20 Attending physician:: LIBORIO QUISPE Provider Consulted: CLIFF ANDERSON Consult reason:: Dyspnea, abnormal ekg. History of Present Illness Admission Date/PCP: 01/05/20 13:14 History of Present Illness: CHERELLE VALDIVIA is a 59 year old male with history of hypertension, hyperlipidemia, diabetes mellitus, COPD, multiple DVT's not anticoagulated, CAD s/p MS treated with stents, tobacco abuse who is consulted to our service fur further evaluation and treatment of dyspnea and abnormal ekg. The patient presented to the ED yesterday by ambulance after being short of breath for several days after being out of medications for several weeks. He was treated in the field with nebulizers which brought his O2 sat from 80% to 90%. His initial chest radiograph was suspicious for pneumonia and vascular congestion. He had been treated for pneumonia since admission. Since admission he was found to have multiple clots in his legs and today developed a new RBBB along with an abnormal rhythm that could be consistent with polymorphic VT. An echocardiogram yesterday, by original report from Dr. Smyth, revealed an LV systolic function of 45%. I personally reviewed the images today and I believe his EF is actually below 40%. His RV was of normal sized and function without evidence of strain. Physical exam today is deferred as the patient is on isolation for suspected COVID-19 therefore a virtual/remote consult is provided. Past Medical History Cardiac Medical History: Reports: Coronary Artery Disease, Myocardial Infarction, Hyperlipidema, Hypertension Pulmonary Medical History: Reports: Chronic Obstructive Pulmonary Disease (COPD), Respiratory Failure Neurological Medical History: Reports: Ischemic CVA Endocrine Medical History: Reports: Diabetes Mellitus Type 2 - Diet-controlled Renal/ Medical History: Reports: None Malignancy Medical History: Reports: None GI Medical History: Reports: None Psychiatric Medical History: Reports: Depression, Tobacco Dependency Past Surgical History Past Surgical History: Reports: Coronary Stent Social History Lives with: Family Smoking Status: Current Some Day Smoker Electronic Cigarette use?: No Frequency of Alcohol Use: None Hx Recreational Drug Use: No Drugs: None Hx Prescription Drug Abuse: No - Advance Directive Resuscitation Status: Do Not Resuscitate Family History Family History: None, CAD, CVA, Hypertension, Malignancy Parental Family History Reviewed: Yes Children Family History Reviewed: Yes Sibling(s) Family History Reviewed.: Yes Medication/Allergy Home Medications: Aspirin [Adult Low Dose Aspirin EC] 81 mg PO DAILY 04/21/20 Lisinopril [Zestril] 40 mg PO DAILY 01/05/20 Allergies/Adverse Reactions: No Known Allergies Allergy (Unverified 01/05/20 09:23) Physical Exam Vital Signs: Temp Pulse Resp BP Pulse Ox 99.0 F 95 20 147/68 H 97 01/06/20 11:38 01/06/20 11:38 01/06/20 11:38 01/06/20 11:38 01/06/20 11:38 Intake & Output 01/05/20 01/06/20 01/07/20 06:59 06:59 06:59 Intake Total 2325 510 Output Total 2000 300 Balance 325 210 Weight 101.7 kg Results Laboratory Results: 01/06/20 06:50 01/05/20 13:27 01/06/20 01/06/20 01/06/20 06:50 06:50 06:50 WBC 7.8 RBC 4.64 Hgb 14.0 Hct 40.4 MCV 87 MCH 30.1 MCHC 34.6 RDW 13.1 Plt Count 359 Seg Neutrophils % 72.5 Phosphorus 5.0 H Magnesium 1.9 Triglycerides 122 Cholesterol 229.20 H LDL Cholesterol Direct 177 H VLDL Cholesterol 24.0 HDL Cholesterol 43 TSH 6.35 H 01/05/20 11:10 Troponin I 0.035 NT-Pro-B Natriuret Pep 6630 H Impressions: Venous Doppler Study 01/05/20 00:00 IMPRESSION: Occlusive and nonocclusive deep venous thrombosis identified bilaterally common femoral to distal. This is progressive when compared to prior.. Chest X-Ray 01/05/20 08:48 IMPRESSION: Patchy left basilar opacities and small left effusion suggestive of pneumonia. Mild central vascular congestion without overt edema. 01/06/20 06:50 01/05/20 13:27 MCV 87 fl (80-97) 01/06/20 06:50 MCH 30.1 pg (27.0-33.4) 01/06/20 06:50 MCHC 34.6 g/dL (32.0-36.0) 01/06/20 06:50 RDW 13.1 % (11.5-14.0) 01/06/20 06:50 Seg Neutrophils % 72.5 % (42-78) 01/06/20 06:50 VBG pH 7.27 (7.30-7.42) L 01/05/20 11:10 VBG pCO2 62.6 mmHg (35-63) 01/05/20 11:10 VBG HCO3 28.1 mmol/L (20-32) 01/05/20 11:10 VBG Base Excess -0.8 mmol/L 01/05/20 11:10 Chloride 109 mmol/L (98-107) H 01/05/20 13:27 Carbon Dioxide 26 mmol/L (22-30) 01/05/20 13:27 Anion Gap 2 (5-19) L 01/05/20 13:27 Est GFR ( Amer) > 60 (>60) 01/05/20 13:27 Glucose 109 mg/dL (75-110) 01/05/20 13:27 Lactic Acid 1.0 mmol/L (0.7-2.1) 01/05/20 13:27 Calcium 8.0 mg/dL (8.4-10.2) L 01/05/20 13:27 Phosphorus 5.0 mg/dL (2.5-4.5) H 01/06/20 06:50 Magnesium 1.9 mg/dL (1.6-2.3) 01/06/20 06:50 Total Bilirubin 0.6 mg/dL (0.2-1.3) 01/05/20 11:10 AST 23 U/L (17-59) 01/05/20 11:10 Alkaline Phosphatase 141 U/L (38-126) H 01/05/20 11:10 Total Protein 7.0 g/dL (6.3-8.2) 01/05/20 11:10 Albumin 3.3 g/dL (3.5-5.0) L 01/05/20 11:10 Triglycerides 122 mg/dL (<150) 01/06/20 06:50 Cholesterol 229.20 mg/dL (0-200) H 01/06/20 06:50 LDL Cholesterol Direct 177 mg/dL (<100) H 01/06/20 06:50 VLDL Cholesterol 24.0 mg/dL (10-31) 01/06/20 06:50 HDL Cholesterol 43 mg/dL (>40) 01/06/20 06:50 TSH 6.35 uIU/mL (0.47-4.68) H 01/06/20 06:50 Urine Color YELLOW 01/05/20 12:55 Urine Appearance SLIGHTLY-CLOUDY 01/05/20 12:55 Urine pH 5.0 (5.0-9.0) 01/05/20 12:55 Ur Specific [place] 1.022 01/05/20 12:55 Urine Protein >=500 mg/dL (NEGATIVE) H 01/05/20 12:55 Urine Glucose (UA) 50 mg/dL (NEGATIVE) H 01/05/20 12:55 Urine Ketones NEGATIVE mg/dL (NEGATIVE) 01/05/20 12:55 Urine Blood MODERATE (NEGATIVE) H 01/05/20 12:55 Urine Nitrite NEGATIVE (NEGATIVE) 01/05/20 12:55 Ur Leukocyte Esterase NEGATIVE (NEGATIVE) 01/05/20 12:55 Urine WBC (Auto) 4 /HPF 01/05/20 12:55 Urine RBC (Auto) 2 /HPF 01/05/20 12:55 01/05/20 11:10 Troponin I 0.035 NT-Pro-B Natriuret Pep 6630 H Current Medication List Generic Name Dose Route Start Last Admin Trade Name Freq PRN Reason Stop Dose Admin Albuterol 2 puff 01/05/20 18:49 Proair Hfa Inhalation Aerosol 8.5 Gm Mdi IH 02/04/20 18:48 Q4HP PRN FOR WHEEZING Aspirin 81 mg 01/06/20 10:00 01/06/20 09:45 Aspirin 81 Mg Chewable Tablet PO 02/05/20 09:59 81 mg DAILY JERMAINE Administration Atorvastatin Calcium 40 mg 01/05/20 22:00 01/05/20 22:11 Lipitor 40 Mg Tablet PO 02/04/20 21:59 40 mg QHS JERMAINE Administration Azithromycin 500 mg 01/06/20 10:00 01/06/20 09:45 Zithromax Inj 500 Mg Vial IV 01/13/20 09:59 500 mg DAILY JERMAINE Administration Calcium Carbonate 1 tab 01/07/20 10:00 Caltrate 600-Vit D3 400 Tablet PO 02/06/20 09:59 DAILY JERMAINE Carbidopa/Levodopa 1 tab 01/06/20 22:00 Sinemet 10-100 Mg Tablet PO 02/05/20 21:59 Q8 JERMAINE Dextrose 12.5 gm 01/06/20 09:00 Dextrose Inj 50% Syringe (25 Gm/50 Ml) IV 02/05/20 08:59 PRN PRN FOR BG 50-69 IN ALERT PATIENT Protocol Dextrose 25 gm 01/06/20 09:00 Dextrose Inj 50% Syringe (25 Gm/50 Ml) IV 02/05/20 08:59 PRN PRN Protocol Docusate Sodium 100 mg 01/06/20 10:00 01/06/20 09:45 Colace 100 Mg Capsule PO 02/05/20 09:59 100 mg DAILY JERMAINE Administration Enoxaparin Sodium 100 mg 01/05/20 22:00 01/06/20 09:45 Lovenox Inj 100 Mg/1 Ml Disp.Syrin SUBCUT 02/04/20 21:59 100 mg Q12 JERMAINE Administration Fluticasone/Vilanterol 1 inh 01/06/20 10:00 01/06/20 09:45 Breo 100-25 Mcg Ellipta 14 Dose/Dpi IH 02/05/20 09:59 1 inhaler DAILY JERMAINE Administration Furosemide 20 mg 01/05/20 18:30 01/06/20 09:45 Lasix Inj/Pf 20 Mg/2 Ml Sdv IV 02/04/20 18:29 20 mg DAILY JERMAINE Administration Glucagon 1 mg 01/06/20 09:00 Glucagen Inj 1 Mg Vial IM 02/05/20 08:59 PRN PRN EVALUATE FOR BG < 70 Protocol Glucose 15 gm 01/06/20 09:00 Glutose 40% Gel 15 Gm Tube PO 02/05/20 08:59 PRN PRN FOR BG 50-69 IN ALERT PATIENT Protocol Glucose 30 gm 01/06/20 09:00 Glutose 40% Gel 15 Gm Tube PO 02/05/20 08:59 PRN PRN FOR BG < 50 IN ALERT PATIENT Protocol Ceftriaxone Sodium/Dextrose 2 gm in 50 mls @ 100 mls/hr 01/06/20 10:00 01/06/20 11:51 Rocephin Rtu 2 Gm/D5w 50 Ml Premix Bag IV 01/13/20 09:59 Infused DAILY JERMAINE Infusion Insulin Human Lispro 0 - 12 unit 01/06/20 11:00 01/06/20 12:13 Humalog Insulin 100 Unit/1 Ml 3 Ml Vial SUBCUT 02/05/20 10:59 Not Given ACHS JERMAINE Protocol Lisinopril 10 mg 01/06/20 10:00 01/06/20 09:45 Prinivil 10 Mg Tablet PO 02/05/20 09:59 10 mg DAILY JERMAINE Administration Ondansetron HCl 4 mg 01/05/20 12:58 Zofran Odt 4 Mg Tablet PO 02/04/20 12:57 Q4HP PRN FOR NAUSEA/VOMITING Ondansetron HCl 4 mg 01/05/20 12:58 01/06/20 12:14 Zofran Inj/Pf 4 Mg/2 Ml Sdv IV 02/04/20 12:57 4 mg Q8HP PRN Administration FOR NAUSEA/VOMITING Discontinued Medications Generic Name Dose Route Start Last Admin Trade Name Freq PRN Reason Stop Dose Admin Albuterol 2 puff 01/05/20 17:55 Ventolin Hfa 8 Gm Mdi IH 02/04/20 17:54 Q4HP PRN FOR WHEEZING Azithromycin 500 mg 01/05/20 11:42 01/05/20 12:22 Zithromax 250 Mg Tablet PO 01/05/20 11:43 500 mg NOW ONE Administration Enoxaparin Sodium 40 mg 01/06/20 10:00 Lovenox Inj 40 Mg/0.4 Ml Disp.Syrin SUBCUT 02/05/20 09:59 DAILY JERMAINE Ceftriaxone Sodium/Dextrose 2 gm in 50 mls @ 100 mls/hr 01/05/20 11:42 01/05/20 13:43 Rocephin Rtu 2 Gm/D5w 50 Ml Premix Bag IV 01/05/20 12:11 Infused NOW ONE Infusion Nitroglycerin 1 gm 01/05/20 10:24 01/05/20 11:46 Nitrol 2% Ointment 1gm Packet TP 01/05/20 10:25 1 gm NOW ONE Administration Venous Doppler Study 01/05/20 00:00 IMPRESSION: Occlusive and nonocclusive deep venous thrombosis identified bilaterally common femoral to distal. This is progressive when compared to prior.. Chest X-Ray 01/06/20 00:00 IMPRESSION: Mild bibasilar opacities and small effusions, left greater than right. Chest/Abdomen CTA 01/06/20 10:45 IMPRESSION: 1. No evidence of pulmonary embolus. 2. Cardiomegaly, small bilateral effusions and bibasilar consolidation, likely atelectasis although infection not excluded. Additional mild interlobular septal thickening and minimal ground-glass opacities may represent element of mild interstitial edema. 3. Mediastinal and right hilar adenopathy possibly reactive although recommend 3-6 month follow-up to ensure resolution. Assessment & Plan - Diagnosis (1) COPD exacerbation Is this a current diagnosis for this admission?: Yes Plan: The patient has a hx of COPD and is currently being treated for it. Recommendations: -Further treatment per inpatient team. (2) Pneumonia Qualifiers: Pneumonia type: due to unspecified organism Laterality: left Lung location: lower lobe of lung Qualified Code(s): J18.9 - Pneumonia, unspecified organism Is this a current diagnosis for this admission?: Yes Plan: The patient is under antibiotic treatment. Will defer further management to his inpatient team. (3) CAD (coronary artery disease) Is this a current diagnosis for this admission?: Yes Plan: Unfortunately the patient does not remember much of his CAD history. He did undergo stenting of at least the LAD as demonstrated by his CT-PE study today. His initial troponin is detectable but not diagnostic for injury. The patient is on GDMT except a BB given his current heart failure exacerbation. Recommendations: -Continue with current management. -Plan to add BB once he is diuresed and more stable. -Continue trending cardiac troponin. -Will continue to follow with you. (4) HTN (hypertension) Is this a current diagnosis for this admission?: Yes Plan: His BP is above his goal of 130/80 however he is fluid overloaded and dyspneic. I suspect that his BP will decrease once his respiratory status is improved and he is diuresed. Recommendations: -Continue with current management. (5) HLD (hyperlipidemia) Is this a current diagnosis for this admission?: Yes Plan: His most recent LDL is above his goal at 177 however the patient has not been taking his atorvastatin which was just re-started during the hospitalization. Recommendations: -Continue with current management. -PCM to check fasting LDL and LFT's in 6 weeks. (6) DVT (deep venous thrombosis) Is this a current diagnosis for this admission?: Yes Plan: Per his report, he has had multiple DVT's in the past however he had not been anticoagulated until this hopitalization. He currently has bilateral DVT's. Recommendations: -Agree with CT-PE protocol today. -Continue with anticoagulation. (7) Heart failure with reduced ejection fraction Is this a current diagnosis for this admission?: Yes Plan: The patient does have a hx of CHF and appears to have an exacerbation currently. He has an elevated proBNP as well as radiographic evidence of fluid overload in the setting of symptoms suggestive of heart failure. Although his echocardiogram yesterday was read as to have an LVSF of 45%, after personally reviewing the images, I disagree with that estimate and believe that his EF is more in the 35% range. Recommendations: -Start Coreg 3.125 mg bid once the patient is more stable and diuresed. -Discontinue lisinopril. -Start Entresto 49mg/51mg bid at least 36 hours after last dose of lisinopril. -Increase lasix to 40 mg bid. -Restrict fluid intake to 1500cc daily. -Strict intake and output. -Daily weight. -Low sodium diet, less than 1500mg daily.
--- NOTE | 2020-01-06 18:42 | EKG REPORT ---
SEVERITY:- ABNORMAL ECG - SINUS RHYTHM FIRST DEGREE AV BLOCK RIGHT BUNDLE BRANCH BLOCK ANTERIOR INFARCT, AGE INDETERMINATE : Confirmed by: Aakash Smyth 06-Jan-2020 18:42:00
--- NOTE | 2020-01-06 19:22 | Progress Note ---
Provider Note Provider Note: Received a call from Sol, the nurse taking care of Mr. Beckett regarding the possibility of the patient having polymorphic VT. Per her report the patient was asymptomatic however had a prior episode at around 1315 when he did have some diaphoresis and shortness of breath. He had another episode of a ventricular dys rhythmia but remained asymptomatic. Review of all pertinent telemetry demostrated significant artifact mimicking a wide complex tachycardia. Luckily enough, during the episode at around 1315 all telemetry leads were in placed therefore I was able to confirm that in fact the patient did not have VT of any kind as the other leads demonstrated NSR. Per the nurse report, the patient had been moving in the bed significantly and I suspect some of the telemetry leads came off as review of the event at around 1615 and later only one lead was recording. Review of those strips revealed what appears to be artifact and not a ventricular dysrhythmias. On another note, the patient has remained hypertensive therefore I have initiated carvedilol 3.125 mg bid with the first dose now which will also help with his HF and will protect him from the development of ventricular dysrhythmias given his low LVSF.
[2020-01-06 21:27] LABS: CREATINE KINASE MB 13.1 ng/mL (<4.55); TROPONIN I 0.028 ng/mL
[2020-01-06] MEDS: ATORVASTATIN CALCIUM 40 MG TABLET PO SCH (21:28)
[2020-01-06] MEDS: CARVEDILOL 3.125 MG TABLET PO SCH (21:28)
[2020-01-06] MEDS: CARBIDOPA/LEVODOPA 10-100 MG TABLET PO SCH (21:29)
[2020-01-07 02:31] LABS: CREATINE KINASE MB 9.47 ng/mL (<4.55); TROPONIN I 0.033 ng/mL
[2020-01-07] MEDS: CARBIDOPA/LEVODOPA 10-100 MG TABLET PO SCH ×3 (05:11→22:30)
--- NOTE | 2020-01-07 08:27 | PDOC PROGRESS REPORT ---
Subjective Progress Note for:: 01/07/20 Subjective:: CHERELLE VALDIVIA is a 59 year old male with history of hypertension, hyperlipidemia, diabetes mellitus, COPD, multiple DVT's not anticoagulated, CAD s/p NE treated with stents, tobacco abuse who is consulted to our service fur further evaluation and treatment of dyspnea and abnormal ekg. The patient presented to the ED yesterday by ambulance after being short of breath for several days after being out of medications for several weeks. He was treated in the field with nebulizers which brought his O2 sat from 80% to 90%. His initial chest radiograph was suspicious for pneumonia and vascular congestion. He had been treated for pneumonia since admission. Since admission he was found to have multiple clots in his legs and today developed a new RBBB along with an abnormal rhythm that could be consistent with polymorphic VT. An echocardiogram yesterday, by original report from Dr. Smyth, revealed an LV systolic function of 45%. I personally reviewed the images today and I believe his EF is actually below 40%. His RV was of normal sized and function without evidence of strain. 01/07/2020: The patient is evaluated today virtually using computer on wheels with WebCam attachment and remote tablet therefore no hands-on physical exam was performed. He is found sleeping in bed and easily arousable. He complains of orthopnea as well as mild dyspnea. He just quit smoking approximately 1 month ago. He states that his LAD stent was placed in 2011 at which time he did have a myocardial infarction, he states that he had another stent placed at that time however does not remember what vessel was fixed and does not have stent cards with him. Of note, his telemetry demonstrates multiple episodes of artifact that had been confused by the staff to be polymorphic VT however this is not the case. Review of telemetry again this morning demonstrated motion artifact, sinus rhythm with a first-degree AV block, nonconducted PACs and no evidence of malignant atrial or ventricular dysrhythmias. Reason For Visit: ACUTE HYPOXEMIC RESPIRATORY FAILURE,COMMUNITY- Physical Exam Vital Signs: Temp Pulse Resp BP Pulse Ox 98.6 F 81 22 H 131/65 H 100 01/07/20 03:27 01/07/20 03:27 01/07/20 03:27 01/07/20 03:27 01/07/20 03:27 Intake & Output 01/06/20 01/07/20 01/08/20 06:59 06:59 06:59 Intake Total 0758 1415 Output Total 1999 2800 Balance 325 -1385 Weight 101.7 kg 101.9 kg Results Laboratory Results: 01/06/20 06:50 01/06/20 14:30 01/06/20 01/06/20 01/06/20 06:50 06:50 06:50 WBC 7.8 RBC 4.64 Hgb 14.0 Hct 40.4 MCV 87 MCH 30.1 MCHC 34.6 RDW 13.1 Plt Count 359 Seg Neutrophils % 72.5 Sodium Potassium Chloride Carbon Dioxide Anion Gap BUN Creatinine Est GFR ( Amer) Glucose Calcium Phosphorus 5.0 H Magnesium 1.9 Triglycerides 122 Cholesterol 229.20 H LDL Cholesterol Direct 177 H VLDL Cholesterol 24.0 HDL Cholesterol 43 TSH 6.35 H PTH Intact 01/06/20 01/07/20 14:30 01:50 WBC RBC Hgb Hct MCV MCH MCHC RDW Plt Count Seg Neutrophils % Sodium 136.8 L Potassium 4.4 Chloride 102 Carbon Dioxide 29 Anion Gap 6 BUN 25 H Creatinine 1.14 Est GFR ( Amer) > 60 Glucose 147 H Calcium 8.2 L Phosphorus Magnesium Triglycerides Cholesterol LDL Cholesterol Direct VLDL Cholesterol HDL Cholesterol TSH PTH Intact 153.9 H 01/05/20 01/06/20 01/06/20 11:10 14:30 14:30 Creatine Kinase 197 H CK-MB (CK-2) 11.10 H Troponin I 0.035 0.028 NT-Pro-B Natriuret Pep 6630 H 01/06/20 01/06/20 01/07/20 20:10 20:10 01:50 Creatine Kinase 260 H 187 H CK-MB (CK-2) 13.10 H Troponin I 0.028 NT-Pro-B Natriuret Pep 01/07/20 01:50 Creatine Kinase CK-MB (CK-2) 9.47 H Troponin I 0.033 NT-Pro-B Natriuret Pep Impressions: Venous Doppler Study 01/05/20 00:00 IMPRESSION: Occlusive and nonocclusive deep venous thrombosis identified bilaterally common femoral to distal. This is progressive when compared to prior.. Chest X-Ray 01/06/20 00:00 IMPRESSION: Mild bibasilar opacities and small effusions, left greater than right. Chest/Abdomen CTA 01/06/20 10:45 IMPRESSION: 1. No evidence of pulmonary embolus. 2. Cardiomegaly, small bilateral effusions and bibasilar consolidation, likely atelectasis although infection not excluded. Additional mild interlobular septal thickening and minimal ground-glass opacities may represent element of mild interstitial edema. 3. Mediastinal and right hilar adenopathy possibly reactive although recommend 3-6 month follow-up to ensure resolution. 01/06/20 06:50 01/06/20 14:30 MCV 87 fl (80-97) 01/06/20 06:50 MCH 30.1 pg (27.0-33.4) 01/06/20 06:50 MCHC 34.6 g/dL (32.0-36.0) 01/06/20 06:50 RDW 13.1 % (11.5-14.0) 01/06/20 06:50 Seg Neutrophils % 72.5 % (42-78) 01/06/20 06:50 VBG pH 7.27 (7.30-7.42) L 01/05/20 11:10 VBG pCO2 62.6 mmHg (35-63) 01/05/20 11:10 VBG HCO3 28.1 mmol/L (20-32) 01/05/20 11:10 VBG Base Excess -0.8 mmol/L 01/05/20 11:10 Chloride 102 mmol/L (98-107) 01/06/20 14:30 Carbon Dioxide 29 mmol/L (22-30) 01/06/20 14:30 Anion Gap 6 (5-19) 01/06/20 14:30 Est GFR ( Amer) > 60 (>60) 01/06/20 14:30 Glucose 147 mg/dL (75-110) H 01/06/20 14:30 Lactic Acid 1.0 mmol/L (0.7-2.1) 01/05/20 13:27 Calcium 8.2 mg/dL (8.4-10.2) L 01/06/20 14:30 Phosphorus 5.0 mg/dL (2.5-4.5) H 01/06/20 06:50 Magnesium 1.9 mg/dL (1.6-2.3) 01/06/20 06:50 Total Bilirubin 0.6 mg/dL (0.2-1.3) 01/05/20 11:10 AST 23 U/L (17-59) 01/05/20 11:10 Alkaline Phosphatase 141 U/L (38-126) H 01/05/20 11:10 Total Protein 7.0 g/dL (6.3-8.2) 01/05/20 11:10 Albumin 3.3 g/dL (3.5-5.0) L 01/05/20 11:10 Triglycerides 122 mg/dL (<150) 01/06/20 06:50 Cholesterol 229.20 mg/dL (0-200) H 01/06/20 06:50 LDL Cholesterol Direct 177 mg/dL (<100) H 01/06/20 06:50 VLDL Cholesterol 24.0 mg/dL (10-31) 01/06/20 06:50 HDL Cholesterol 43 mg/dL (>40) 01/06/20 06:50 TSH 6.35 uIU/mL (0.47-4.68) H 01/06/20 06:50 PTH Intact 153.9 pg/mL (10.0-65.0) H 01/07/20 01:50 Urine Color YELLOW 01/05/20 12:55 Urine Appearance SLIGHTLY-CLOUDY 01/05/20 12:55 Urine pH 5.0 (5.0-9.0) 01/05/20 12:55 Ur Specific Casanova 1.022 01/05/20 12:55 Urine Protein >=500 mg/dL (NEGATIVE) H 01/05/20 12:55 Urine Glucose (UA) 50 mg/dL (NEGATIVE) H 01/05/20 12:55 Urine Ketones NEGATIVE mg/dL (NEGATIVE) 01/05/20 12:55 Urine Blood MODERATE (NEGATIVE) H 01/05/20 12:55 Urine Nitrite NEGATIVE (NEGATIVE) 01/05/20 12:55 Ur Leukocyte Esterase NEGATIVE (NEGATIVE) 01/05/20 12:55 Urine WBC (Auto) 4 /HPF 01/05/20 12:55 Urine RBC (Auto) 2 /HPF 01/05/20 12:55 01/05/20 01/06/20 01/06/20 11:10 14:30 14:30 Creatine Kinase 197 H CK-MB (CK-2) 11.10 H Troponin I 0.035 0.028 NT-Pro-B Natriuret Pep 6630 H 01/06/20 01/06/20 01/07/20 20:10 20:10 01:50 Creatine Kinase 260 H 187 H CK-MB (CK-2) 13.10 H Troponin I 0.028 NT-Pro-B Natriuret Pep 01/07/20 01:50 Creatine Kinase CK-MB (CK-2) 9.47 H Troponin I 0.033 NT-Pro-B Natriuret Pep Current Medication List Generic Name Dose Route Start Last Admin Trade Name Freq PRN Reason Stop Dose Admin Albuterol 2 puff 01/05/20 18:49 Proair Hfa Inhalation Aerosol 8.5 Gm Mdi IH 02/04/20 18:48 Q4HP PRN FOR WHEEZING Aspirin 81 mg 01/06/20 10:00 01/06/20 09:45 Aspirin 81 Mg Chewable Tablet PO 02/05/20 09:59 81 mg DAILY JERMAINE Administration Atorvastatin Calcium 40 mg 01/05/20 22:00 01/06/20 21:28 Lipitor 40 Mg Tablet PO 02/04/20 21:59 40 mg QHS JERMAINE Administration Azithromycin 500 mg 01/06/20 10:00 01/06/20 09:45 Zithromax Inj 500 Mg Vial IV 01/13/20 09:59 500 mg DAILY JERMAINE Administration Calcium Carbonate 1 tab 01/07/20 10:00 Caltrate 600-Vit D3 400 Tablet PO 02/06/20 09:59 DAILY JERMAINE Carbidopa/Levodopa 1 tab 01/06/20 22:00 01/07/20 05:11 Sinemet 10-100 Mg Tablet PO 02/05/20 21:59 1 tab Q8 JERMAINE Administration Carvedilol 3.125 mg 01/06/20 20:00 01/06/20 21:28 Coreg 3.125 Mg Tablet PO 02/05/20 19:59 3.125 mg Q12 JERMAINE Administration Dextrose 12.5 gm 01/06/20 09:00 Dextrose Inj 50% Syringe (25 Gm/50 Ml) IV 02/05/20 08:59 PRN PRN FOR BG 50-69 IN ALERT PATIENT Protocol Dextrose 25 gm 01/06/20 09:00 Dextrose Inj 50% Syringe (25 Gm/50 Ml) IV 02/05/20 08:59 PRN PRN Protocol Docusate Sodium 100 mg 01/06/20 10:00 01/06/20 09:45 Colace 100 Mg Capsule PO 02/05/20 09:59 100 mg DAILY JERMAINE Administration Enoxaparin Sodium 100 mg 01/05/20 22:00 01/06/20 21:28 Lovenox Inj 100 Mg/1 Ml Disp.Syrin SUBCUT 02/04/20 21:59 100 mg Q12 JERMAINE Administration Fluticasone/Vilanterol 1 inh 01/06/20 10:00 01/06/20 09:45 Breo 100-25 Mcg Ellipta 14 Dose/Dpi IH 02/05/20 09:59 1 inhaler DAILY JERMAINE Administration Furosemide 40 mg 01/06/20 14:49 01/06/20 15:33 Lasix Inj/Pf 20 Mg/2 Ml Sdv IV 02/05/20 14:48 40 mg DAILY JERMAINE Administration Glucagon 1 mg 01/06/20 09:00 Glucagen Inj 1 Mg Vial IM 02/05/20 08:59 PRN PRN EVALUATE FOR BG < 70 Protocol Glucose 15 gm 01/06/20 09:00 Glutose 40% Gel 15 Gm Tube PO 02/05/20 08:59 PRN PRN FOR BG 50-69 IN ALERT PATIENT Protocol Glucose 30 gm 01/06/20 09:00 Glutose 40% Gel 15 Gm Tube PO 02/05/20 08:59 PRN PRN FOR BG < 50 IN ALERT PATIENT Protocol Ceftriaxone Sodium/Dextrose 2 gm in 50 mls @ 100 mls/hr 01/06/20 10:00 01/06/20 11:51 Rocephin Rtu 2 Gm/D5w 50 Ml Premix Bag IV 01/13/20 09:59 Infused DAILY [facility] Infusion Insulin Human Lispro 0 - 12 unit 01/06/20 11:00 01/06/20 21:31 Humalog Insulin 100 Unit/1 Ml 3 Ml Vial SUBCUT 02/05/20 10:59 Not Given ACHS [facility] Protocol Lorazepam 1 mg 01/06/20 15:55 Ativan Inj 2 Mg/1 Ml Vial IV 01/13/20 15:54 Q4HP PRN ANXIETY/AGITATION Ondansetron HCl 4 mg 01/05/20 12:58 01/06/20 15:33 Zofran Odt 4 Mg Tablet PO 02/04/20 12:57 4 mg Q4HP PRN Administration FOR NAUSEA/VOMITING Ondansetron HCl 4 mg 01/05/20 12:58 01/06/20 12:14 Zofran Inj/Pf 4 Mg/2 Ml Sdv IV 02/04/20 12:57 4 mg Q8HP PRN Administration FOR NAUSEA/VOMITING Sacubitril/Valsartan 1 tab 01/08/20 10:00 Entresto 49 Mg/51 Mg Tablet PO 02/07/20 09:59 DAILY JERMAINE Discontinued Medications Generic Name Dose Route Start Last Admin Trade Name Freq PRN Reason Stop Dose Admin Albuterol 2 puff 01/05/20 17:55 Ventolin Hfa 8 Gm Mdi IH 02/04/20 17:54 Q4HP PRN FOR WHEEZING Azithromycin 500 mg 01/05/20 11:42 01/05/20 12:22 Zithromax 250 Mg Tablet PO 01/05/20 11:43 500 mg NOW ONE Administration Enoxaparin Sodium 40 mg 01/06/20 10:00 Lovenox Inj 40 Mg/0.4 Ml Disp.Syrin SUBCUT 02/05/20 09:59 DAILY JERMAINE Furosemide 20 mg 01/05/20 18:30 01/06/20 09:45 Lasix Inj/Pf 20 Mg/2 Ml Sdv IV 02/04/20 18:29 20 mg DAILY JERMAINE Administration Furosemide 40 mg 01/07/20 10:00 Lasix Inj/Pf 20 Mg/2 Ml Sdv IV 02/06/20 09:59 DAILY JERMAINE Ceftriaxone Sodium/Dextrose 2 gm in 50 mls @ 100 mls/hr 01/05/20 11:42 01/05/20 13:43 Rocephin Rtu 2 Gm/D5w 50 Ml Premix Bag IV 01/05/20 12:11 Infused NOW ONE Infusion Lisinopril 10 mg 01/06/20 10:00 01/06/20 09:45 Prinivil 10 Mg Tablet PO 02/05/20 09:59 10 mg DAILY JERMAINE Administration Nitroglycerin 1 gm 01/05/20 10:24 01/05/20 11:46 Nitrol 2% Ointment 1gm Packet TP 01/05/20 10:25 1 gm NOW ONE Administration Assessment & Plan - Diagnosis (1) COPD exacerbation Is this a current diagnosis for this admission?: Yes Plan: The patient has a hx of COPD and is currently being treated for it. He does quit tobacco approximately 1 month ago. Recommendations: -Further treatment per inpatient team. (2) Pneumonia Qualifiers: Pneumonia type: due to unspecified organism Laterality: left Lung location: lower lobe of lung Qualified Code(s): J18.9 - Pneumonia, unspecified organism Is this a current diagnosis for this admission?: Yes Plan: The patient is under antibiotic treatment. Will defer further management to his inpatient team. (3) CAD (coronary artery disease) Is this a current diagnosis for this admission?: Yes Plan: The patient, per his report, had a myocardial infarction in 2011 which was apparently treated with 2 stents. There is only evidence of one stent in the LAD on CT scan of the chest yesterday. Unfortunately he does not have any of his stent cards and does not remember any details of her cardiac history. He is currently on GDMT except for VALERIY inhibitor/ARB which was discontinued yesterday in preparation for initiation of Entresto. He denies ischemic symptoms this morning. Recommendations: -Continue with current management. -Get old cardiac records. -Will continue to follow with you. (4) HTN (hypertension) Is this a current diagnosis for this admission?: Yes Plan: His BP is improved after initiating Coreg yesterday evening. Recommendations: -Continue with current management. -We will continue to monitor his blood pressure and uptitrate medications as needed. (5) HLD (hyperlipidemia) Plan: His most recent LDL is above his goal at 177 however the patient has not been taking his atorvastatin which was just re-started during this hospitalization. Recommendations: -Continue with current management. -PCM to check fasting LDL and LFT's in 6 weeks. (6) DVT (deep venous thrombosis) Is this a current diagnosis for this admission?: Yes Plan: Per his report, he has had multiple DVT's in the past however he had not been anticoagulated until this hopitalization. He currently has bilateral DVT's. There is no evidence of PE. Recommendations: -Continue with anticoagulation. (7) Heart failure with reduced ejection fraction Is this a current diagnosis for this admission?: Yes Plan: The patient continues to be mildly fluid overloaded and with orthopnea and dyspnea. I believe his dyspnea is multifactorial to include his body habitus, obesity, deconditioning, fluid overload and particularly COPD. Nonetheless he needs more diuresis. As of this morning his fluid balance is -1060 cc. Although his echocardiogram during this hospitalization was read as to have an LVSF of 45%, after personally reviewing the images, I disagree with that estimate and believe that his EF is more in the 35% range. Recommendations: -Continue with current medical management. -Start Entresto 49mg/51mg bid at least 36 hours after last dose of lisinopril. -Restrict fluid intake to 1500cc daily. -Strict intake and output. -Daily weight. -Low sodium diet, less than 1500mg daily.
[2020-01-07] MEDS: INSULIN LISPRO 100 UNIT/ML 3 ML VIAL SUBCUT SCH ×4 (08:59→22:30)
[2020-01-07] MEDS ORDERED: FUROSEMIDE INJ/PF 20 MG/2 ML SDV IV SCH (10:00)
[2020-01-07] MEDS: CALCIUM CARBONATE 600 MG/VITAMIN D3 400 UNIT TABLET PO SCH (10:10)
[2020-01-07] MEDS: FUROSEMIDE INJ/PF 40 MG/4 ML SDV IV SCH (10:10)
[2020-01-07] MEDS: ENOXAPARIN SODIUM INJ 100 MG/1 ML DISP.SYRIN SUBCUT SCH ×2 (10:10→22:30)
[2020-01-07] MEDS: ASPIRIN 81 MG TABLET, CHEWABLE PO SCH (10:10)
[2020-01-07] MEDS: CARVEDILOL 3.125 MG TABLET PO SCH ×2 (10:10→22:29)
[2020-01-07] MEDS: CEFTRIAXONE 2 GM/D5W RTU 2 GM/50 ML RTUPB IV SCH (10:10)
[2020-01-07] MEDS: FLUTICASONE/VILANTEROL 100-25 MCG/DOSE IH SCH (10:10)
[2020-01-07] MEDS: DOCUSATE SODIUM 100 MG CAPSULE PO SCH (11:23)
[2020-01-07] MEDS ORDERED: AZITHROMYCIN 500 MG in DEXTROSE 5%-WATER 250 ML IV SCH (12:00)
--- NOTE | 2020-01-07 13:43 | PDOC PROGRESS REPORT ---
Subjective Progress Note for:: 01/07/20 Subjective:: CTPA did not show PE. Patient seems to be doing a bit better today but is complaining of his chronic left stump pain. He states he has tried gabapentin in the past but this did not work. He has never tried Lyrica and he is agreeable to trying this today. Coronavirus test is still pending but we should have this back today hopefully. Troponin has been flat x3. PTH is elevated, suspect vitamin D deficiency, check vitamin D level. Given patient is complaining of more pain in his right foot as well, will check arterial studies. Reason For Visit: ACUTE HYPOXEMIC RESPIRATORY FAILURE,COMMUNITY- Physical Exam Vital Signs: Temp Pulse Resp BP Pulse Ox 98.6 F 78 20 146/75 H 100 01/07/20 11:20 01/07/20 11:20 01/07/20 11:20 01/07/20 11:20 01/07/20 11:20 Intake & Output 01/06/20 01/07/20 01/08/20 06:59 06:59 06:59 Intake Total 2325 1415 396 Output Total 1999 2800 Balance 325 -1385 396 Weight 101.7 kg 101.9 kg General appearance: PRESENT: no acute distress, obese, well-developed, well- nourished Head exam: PRESENT: atraumatic, normocephalic Neurological exam: PRESENT: alert, awake Additional comments: Due to patient being COVID-19 Suspected/Positive, encounter was conducted using telephone and/or videochat and does not include a detailed in-person physical exam in order to preserve PPE and limit staff exposure to a dangerous pathogen. Results Laboratory Results: 01/06/20 06:50 01/06/20 14:30 01/06/20 01/07/20 14:30 01:50 Sodium 136.8 L Potassium 4.4 Chloride 102 Carbon Dioxide 29 Anion Gap 6 BUN 25 H Creatinine 1.14 Est GFR ( Amer) > 60 Glucose 147 H Calcium 8.2 L PTH Intact 153.9 H 01/05/20 12:55 Clean Catch Midstream Legionella Urinary Antigen - Final 01/05/20 01/06/20 01/06/20 11:10 14:30 14:30 Creatine Kinase 197 H CK-MB (CK-2) 11.10 H Troponin I 0.035 0.028 NT-Pro-B Natriuret Pep 6630 H 01/06/20 01/06/20 01/07/20 20:10 20:10 01:50 Creatine Kinase 260 H 187 H CK-MB (CK-2) 13.10 H Troponin I 0.028 NT-Pro-B Natriuret Pep 01/07/20 01:50 Creatine Kinase CK-MB (CK-2) 9.47 H Troponin I 0.033 NT-Pro-B Natriuret Pep Impressions: Venous Doppler Study 01/05/20 00:00 IMPRESSION: Occlusive and nonocclusive deep venous thrombosis identified bilaterally common femoral to distal. This is progressive when compared to prior.. Chest X-Ray 01/06/20 00:00 IMPRESSION: Mild bibasilar opacities and small effusions, left greater than right. Chest/Abdomen CTA 01/06/20 10:45 IMPRESSION: 1. No evidence of pulmonary embolus. 2. Cardiomegaly, small bilateral effusions and bibasilar consolidation, likely atelectasis although infection not excluded. Additional mild interlobular septal thickening and minimal ground-glass opacities may represent element of mild interstitial edema. 3. Mediastinal and right hilar adenopathy possibly reactive although recommend 3-6 month follow-up to ensure resolution. Assessment and Plan - Diagnosis (1) COPD exacerbation Is this a current diagnosis for this admission?: Yes Plan: Uses 3 L nasal cannula at home at baseline Target 89 to 94% oxygen saturation and COPD patient Avoid nebulizer and BiPAP until we rule out coronavirus Breo and albuterol started 5 days of prednisone steroids Azithromycin 01/06/2020 Breathing seems to be about the same as yesterday intermittently sometimes worse. Patient does note that when he uses his inhalers he does see some improvement but this is not particularly long-lasting. Continue inhalers, can start using nebulizer treatments when his coronavirus test is negative 01/07/2020 Breathing is steadily improving, continue inhalers and antibiotics (2) Pneumonia Qualifiers: Pneumonia type: due to unspecified organism Laterality: left Lung location: lower lobe of lung Qualified Code(s): J18.9 - Pneumonia, unspecified organism Is this a current diagnosis for this admission?: Yes Plan: Suspect community-acquired versus atypical Seen on chest x-ray Consider CT chest Ceftriaxone/azithromycin Respiratory culture Supplemental oxygen, inhalers, bronchial hygiene as above 01/06/2020 CTPA pending to look for possible organizing pneumonia or lung abscess could be causing persistent infection and respiratory symptoms; I am suspicious that he may have a large burden of clots in his lungs that would be largely responsible for his respiratory symptoms rather than infection 01/07/2020 CTPA showed no PE, small bilateral pleural effusions and bibasilar consolidation, mild interlobular septal thickening, minimal groundglass opacities consistent with mild interstitial edema, mediastinal and right hilar adenopathy which requires 3-6-month follow-up to ensure resolution Complete 5 days of antibiotics, then stop (3) CAD (coronary artery disease) Is this a current diagnosis for this admission?: Yes (4) HTN (hypertension) Is this a current diagnosis for this admission?: Yes (5) HLD (hyperlipidemia) Is this a current diagnosis for this admission?: Yes (6) T2DM (type 2 diabetes mellitus) Is this a current diagnosis for this admission?: Yes (7) History of stroke Is this a current diagnosis for this admission?: Yes (8) Suspected 2019 novel coronavirus infection Is this a current diagnosis for this admission?: Yes Plan: Coronavirus test sent on admission Test still pending as of 01/0501/07/2020 Test is still pending, expect results come back today hopefully; if it is negative he can be transferred to [facility] with telemetry (9) Acute on chronic respiratory failure with hypoxemia Is this a current diagnosis for this admission?: Yes (10) COPD (chronic obstructive pulmonary disease) Is this a current diagnosis for this admission?: Yes (11) DVT (deep venous thrombosis) Is this a current diagnosis for this admission?: Yes - Time Time Spent with patient: 25-34 minutes Medications reviewed and adjusted accordingly: Yes - Inpatient Certification Based on my medical assessment, after consideration of the patient's comorbidities, presenting symptoms, or acuity I expect that the services needed warrant INPATIENT care.: Yes I certify that my determination is in accordance with my understanding of Medicare's requirements for reasonable and necessary INPATIENT services [42 CFR 412.3e].: Yes Medical Necessity: Significant Comorbidiites Make Outpatient Treatment Too Risky, Need Close Monitoring Due to Risk of Patient Decompensation, Need for IV Antibiotics, Risk of Complication if Not Cared For in Hospital, Risk of Diagnosis Which Will Require Inpatient Eval/Care/Monitoring
[2020-01-07] MEDS: PREGABALIN 75 MG CAPSULE PO SCH (14:04)
[2020-01-07] MEDS: CHOLECALCIFEROL (D3) 1,000 UNIT (25 MCG) TABLET PO SCH (16:41)
--- NOTE | 2020-01-07 20:13 | RADIOLOGY REPORT (SQ) ---
EXAM DESCRIPTION: ARTERIAL LOWER EXTREM BILAT IMAGES COMPLETED DATE/TIME: 01/07/2020 6:46 pm REASON FOR STUDY: arterial clots/insufficiency vs PVD COMPARISON: Venous Doppler 01/05/2020 TECHNIQUE: Dynamic and static white scale and color images acquired of the lower extremity arteries. Additional selected spectral images recorded. ABIs were not recorded. LIMITATIONS: None. FINDINGS: RIGHT LEG: ABIS: Not performed. INFLOW ARTERIES: Normal, no obstruction evident. FEMORAL ARTERIES:Multiphasic waveforms. Normal, no velocity elevation to suggest focal stenosis. Norm al color Doppler evaluation. No aneurysm. POPLITEAL ARTERY:Multiphasic waveforms. Normal, no velocity elevation to suggest focal stenosis. Norm al color Doppler evaluation. No aneurysm. PATENT TIBIOPERONEAL TRUNK, [employer]IP[employer] and MATT: Patent tibioperoneal trunk and posterior tibial artery. Pa tent anterior tibial artery proximally with monophasic waveforms. Occluded mid third, with retrogra de flow in the distal anterior tibial artery. Retrograde flow in the right dorsalis pedis artery TBI: Not performed. OTHER: No other significant finding. LEFT LEG: ABIS: Not performed. INFLOW ARTERIES: Normal, no obstruction evident. FEMORAL ARTERIES:Left common femoral artery is patent. The profunda femoral artery is patent. Left superficial femoral artery is occluded. POPLITEAL ARTERY:Above the knee amputation TBI: Not performed. OTHER: No other significant finding. IMPRESSION: Occluded left superficial femoral artery In the right calf, there is a occlusion of the mid 3rd anterior tibial artery with retrograde flow in the dorsalis pedis artery and distal anterior tibial artery. Remainder of the right lower extremity arterial Doppler is otherwise unremarkable COMMENT: [facility] NORMAL: Greater than 1.0 MINIMAL DISEASE: 0.9 to 1.0 CLAUDICATION: 0.5 to 0.9 SEVERE ARTERIAL DISEASE: Less than 0.5 [facility] NORMAL: Greater than 1.0 (1.2 If Heavy Calcifications) NORMAL TO MILD ISCHEMIA: 0.8 to 1.0 MODERATE ISCHEMIA: 0.4 to 0.8 SEVERE ISCHEMIA: Less than 0.4 TECHNICAL DOCUMENTATION: JOB ID: [id number] [employer]- All Rights Reserved Reading location - IP/workstation name: [email or web address]
[2020-01-07] MEDS: ATORVASTATIN CALCIUM 40 MG TABLET PO SCH (22:29)
[2020-01-07] MEDS: AZITHROMYCIN 500 MG in DEXTROSE 5%-WATER 250 ML IV SCH (22:30)
[2020-01-08] MEDS: CARBIDOPA/LEVODOPA 10-100 MG TABLET PO SCH ×3 (05:51→21:22)
[2020-01-08] MEDS: INSULIN LISPRO 100 UNIT/ML 3 ML VIAL SUBCUT SCH ×4 (09:25→22:05)
[2020-01-08] MEDS: DOCUSATE SODIUM 100 MG CAPSULE PO SCH (09:26)
[2020-01-08] MEDS: CHOLECALCIFEROL (D3) 1,000 UNIT (25 MCG) TABLET PO SCH (10:25)
[2020-01-08] MEDS: PREGABALIN 75 MG CAPSULE PO SCH (10:25)
[2020-01-08] MEDS: CEFTRIAXONE 2 GM/D5W RTU 2 GM/50 ML RTUPB IV SCH (10:25)
[2020-01-08] MEDS: FUROSEMIDE INJ/PF 40 MG/4 ML SDV IV SCH ×2 (10:25→21:21)
[2020-01-08] MEDS: ASPIRIN 81 MG TABLET, CHEWABLE PO SCH (10:25)
[2020-01-08] MEDS: CARVEDILOL 3.125 MG TABLET PO SCH ×2 (10:25→21:22)
[2020-01-08] MEDS: CALCIUM CARBONATE 600 MG/VITAMIN D3 400 UNIT TABLET PO SCH (10:25)
[2020-01-08] MEDS: FLUTICASONE/VILANTEROL 100-25 MCG/DOSE IH SCH (10:26)
[2020-01-08] MEDS: ENOXAPARIN SODIUM INJ 100 MG/1 ML DISP.SYRIN SUBCUT SCH ×2 (10:26→21:21)
[2020-01-08] MEDS: SACUBITRIL/VALSARTAN 49 MG/51 MG TABLET PO SCH (10:28)
--- NOTE | 2020-01-08 10:33 | PDOC PROGRESS REPORT ---
Subjective Progress Note for:: 01/08/20 Subjective:: CHERELLE VALDIVIA is a 59 year old male with history of hypertension, hyperlipidemia, diabetes mellitus, COPD, multiple DVT's not anticoagulated, CAD s/p ID treated with stents, tobacco abuse who is consulted to our service fur further evaluation and treatment of dyspnea and abnormal ekg. The patient presented to the ED yesterday by ambulance after being short of breath for several days after being out of medications for several weeks. He was treated in the field with nebulizers which brought his O2 sat from 80% to 90%. His initial chest radiograph was suspicious for pneumonia and vascular congestion. He had been treated for pneumonia since admission. Since admission he was found to have multiple clots in his legs and today developed a new RBBB along with an abnormal rhythm that could be consistent with polymorphic VT. An echocardiogram yesterday, by original report from Dr. Smyth, revealed an LV systolic function of 45%. I personally reviewed the images today and I believe his EF is actually below 40%. His RV was of normal sized and function without evidence of strain. 01/08/2020: The patient tested negative for COVID-19. This morning he is found laying in bed comfortably. He does complain of more shortness of breath than yesterday. Review of his intake and output reveals that the patient was given over 2 L of fluid yesterday when he supposed to be on a 1500 cc restriction. Of note, he just quit smoking approximately 1 month ago. He states that his LAD stent was placed in 2011 at which time he did have a myocardial infarction, he states that he had another stent placed at that time however does not remember what vessel was fixed and does not have stent cards with him. Telemetry demonstrates normal sinus rhythm without complex atrial or ventricular dysrhythmias. Physical exam on 01/08/2020: GENERAL: Pleasant and conversational. Oriented x3 with normal mood. Not in acute distress. Well groomed and well developed. HEENT: Normocephalic, atraumatic. Pupils equal. Sclerae anicteric. Oropharynx moist. NECK: No JVD. No carotid bruits. LUNGS: Bilateral crackles up to the mid lung. Normal respiratory effort without the use of accessory muscles or intercostal retractions. CARDIOVASCULAR: Regular rate and rhythm, normal S1 and S2 without murmurs, rubs, or gallops. PMI not displaced. ABDOMEN: No masses or tenderness to palpation. No bruit. No splenomegaly or hepatomegaly. No abdominal aorta bruit noted. EXTREMITIES: 1+ pitting edema to the right, the left leg is amputated, no cyanosis, no clubbing. +2 pulses femoral and pedal pulses bilaterally. SKIN: No lesions or rashes. MUSCULOSKELETAL: No chest tenderness to palpation. NEUROLOGIC: Nonfocal. No gross sensory or motor deficits bilateral upper or low er extremities. Reason For Visit: ACUTE HYPOXEMIC RESPIRATORY FAILURE,COMMUNITY- Physical Exam Vital Signs: Temp Pulse Resp BP Pulse Ox 98.7 F 81 17 129/58 H 96 01/08/20 03:06 01/08/20 03:06 01/08/20 03:06 01/08/20 03:06 01/08/20 03:06 Intake & Output 01/07/20 01/08/20 01/09/20 06:59 06:59 06:59 Intake Total 1415 2091 Output Total 2800 1400 Balance -1385 691 Weight 101.9 kg 101.8 kg Results Laboratory Results: 01/06/20 06:50 01/06/20 14:30 01/05/20 12:55 Clean Catch Midstream Legionella Urinary Antigen - Final 01/05/20 01/06/20 01/06/20 11:10 14:30 14:30 Creatine Kinase 197 H CK-MB (CK-2) 11.10 H Troponin I 0.035 0.028 NT-Pro-B Natriuret Pep 6630 H 01/06/20 01/06/20 01/07/20 20:10 20:10 01:50 Creatine Kinase 260 H 187 H CK-MB (CK-2) 13.10 H Troponin I 0.028 NT-Pro-B Natriuret Pep 01/07/20 01:50 Creatine Kinase CK-MB (CK-2) 9.47 H Troponin I 0.033 NT-Pro-B Natriuret Pep Impressions: Venous Doppler Study 01/05/20 00:00 IMPRESSION: Occlusive and nonocclusive deep venous thrombosis identified bilaterally common femoral to distal. This is progressive when compared to prior.. Chest X-Ray 01/06/20 00:00 IMPRESSION: Mild bibasilar opacities and small effusions, left greater than right. Chest/Abdomen CTA 01/06/20 10:45 IMPRESSION: 1. No evidence of pulmonary embolus. 2. Cardiomegaly, small bilateral effusions and bibasilar consolidation, likely atelectasis although infection not excluded. Additional mild interlobular septal thickening and minimal ground-glass opacities may represent element of mild interstitial edema. 3. Mediastinal and right hilar adenopathy possibly reactive although recommend 3-6 month follow-up to ensure resolution. Lower Extremity Ultrasound 01/07/20 00:00 IMPRESSION: Occluded left superficial femoral artery In the right calf, there is a occlusion of the mid 3rd anterior tibial artery with retrograde flow in the dorsalis pedis artery and distal anterior tibial artery. Remainder of the right lower extremity arterial Doppler is otherwise unremarkable 01/06/20 06:50 01/06/20 14:30 MCV 87 fl (80-97) 01/06/20 06:50 MCH 30.1 pg (27.0-33.4) 01/06/20 06:50 MCHC 34.6 g/dL (32.0-36.0) 01/06/20 06:50 RDW 13.1 % (11.5-14.0) 01/06/20 06:50 Seg Neutrophils % 72.5 % (42-78) 01/06/20 06:50 VBG pH 7.27 (7.30-7.42) L 01/05/20 11:10 VBG pCO2 62.6 mmHg (35-63) 01/05/20 11:10 VBG HCO3 28.1 mmol/L (20-32) 01/05/20 11:10 VBG Base Excess -0.8 mmol/L 01/05/20 11:10 Chloride 102 mmol/L (98-107) 01/06/20 14:30 Carbon Dioxide 29 mmol/L (22-30) 01/06/20 14:30 Anion Gap 6 (5-19) 01/06/20 14:30 Est GFR ( Amer) > 60 (>60) 01/06/20 14:30 Glucose 147 mg/dL (75-110) H 01/06/20 14:30 Lactic Acid 1.0 mmol/L (0.7-2.1) 01/05/20 13:27 Calcium 8.2 mg/dL (8.4-10.2) L 01/06/20 14:30 Phosphorus 5.0 mg/dL (2.5-4.5) H 01/06/20 06:50 Magnesium 1.9 mg/dL (1.6-2.3) 01/06/20 06:50 Total Bilirubin 0.6 mg/dL (0.2-1.3) 01/05/20 11:10 AST 23 U/L (17-59) 01/05/20 11:10 Alkaline Phosphatase 141 U/L (38-126) H 01/05/20 11:10 Total Protein 7.0 g/dL (6.3-8.2) 01/05/20 11:10 Albumin 3.3 g/dL (3.5-5.0) L 01/05/20 11:10 Triglycerides 122 mg/dL (<150) 01/06/20 06:50 Cholesterol 229.20 mg/dL (0-200) H 01/06/20 06:50 LDL Cholesterol Direct 177 mg/dL (<100) H 01/06/20 06:50 VLDL Cholesterol 24.0 mg/dL (10-31) 01/06/20 06:50 HDL Cholesterol 43 mg/dL (>40) 01/06/20 06:50 TSH 6.35 uIU/mL (0.47-4.68) H 01/06/20 06:50 PTH Intact 153.9 pg/mL (10.0-65.0) H 01/07/20 01:50 Urine Color YELLOW 01/05/20 12:55 Urine Appearance SLIGHTLY-CLOUDY 01/05/20 12:55 Urine pH 5.0 (5.0-9.0) 01/05/20 12:55 Ur Specific Champion 1.022 01/05/20 12:55 Urine Protein >=500 mg/dL (NEGATIVE) H 01/05/20 12:55 Urine Glucose (UA) 50 mg/dL (NEGATIVE) H 01/05/20 12:55 Urine Ketones NEGATIVE mg/dL (NEGATIVE) 01/05/20 12:55 Urine Blood MODERATE (NEGATIVE) H 01/05/20 12:55 Urine Nitrite NEGATIVE (NEGATIVE) 01/05/20 12:55 Ur Leukocyte Esterase NEGATIVE (NEGATIVE) 01/05/20 12:55 Urine WBC (Auto) 4 /HPF 01/05/20 12:55 Urine RBC (Auto) 2 /HPF 01/05/20 12:55 01/05/20 12:55 Clean Catch Midstream Legionella Urinary Antigen - Final 01/05/20 01/06/20 01/06/20 11:10 14:30 14:30 Creatine Kinase 197 H CK-MB (CK-2) 11.10 H Troponin I 0.035 0.028 NT-Pro-B Natriuret Pep 6630 H 01/06/20 01/06/20 01/07/20 20:10 20:10 01:50 Creatine Kinase 260 H 187 H CK-MB (CK-2) 13.10 H Troponin I 0.028 NT-Pro-B Natriuret Pep 01/07/20 01:50 Creatine Kinase CK-MB (CK-2) 9.47 H Troponin I 0.033 NT-Pro-B Natriuret Pep Current Medication List Generic Name Dose Route Start Last Admin Trade Name Freq PRN Reason Stop Dose Admin Albuterol 2 puff 01/05/20 18:49 Proair Hfa Inhalation Aerosol 8.5 Gm Mdi IH 02/04/20 18:48 Q4HP PRN FOR WHEEZING Aspirin 81 mg 01/06/20 10:00 01/07/20 10:10 Aspirin 81 Mg Chewable Tablet PO 02/05/20 09:59 81 mg DAILY JERMAINE Administration Atorvastatin Calcium 40 mg 01/05/20 22:00 01/07/20 22:29 Lipitor 40 Mg Tablet PO 02/04/20 21:59 40 mg QHS JERMAINE Administration Calcium Carbonate 1 tab 01/07/20 10:00 01/07/20 10:10 Caltrate 600-Vit D3 400 Tablet PO 02/06/20 09:59 1 tab DAILY JERMAINE Administration Carbidopa/Levodopa 1 tab 01/06/20 22:00 01/08/20 05:51 Sinemet 10-100 Mg Tablet PO 02/05/20 21:59 1 tab Q8 JERMAINE Administration Carvedilol 3.125 mg 01/06/20 20:00 01/07/20 22:29 Coreg 3.125 Mg Tablet PO 02/05/20 19:59 3.125 mg Q12 JERMAINE Administration Cholecalciferol 4,000 unit 01/07/20 16:00 01/07/20 16:41 Vitamin D3 1000 Unit Tablet PO 02/06/20 15:59 4,000 unit DAILY JERMAINE Administration Dextrose 12.5 gm 01/06/20 09:00 Dextrose Inj 50% Syringe (25 Gm/50 Ml) IV 02/05/20 08:59 PRN PRN FOR BG 50-69 IN ALERT PATIENT Protocol Dextrose 25 gm 01/06/20 09:00 Dextrose Inj 50% Syringe (25 Gm/50 Ml) IV 02/05/20 08:59 PRN PRN Protocol Docusate Sodium 100 mg 01/06/20 10:00 01/07/20 11:23 Colace 100 Mg Capsule PO 02/05/20 09:59 Not Given DAILY JERMAINE Enoxaparin Sodium 100 mg 01/05/20 22:00 01/07/20 22:30 Lovenox Inj 100 Mg/1 Ml Disp.Syrin SUBCUT 02/04/20 21:59 100 mg Q12 JERMAINE Administration Fluticasone/Vilanterol 1 inh 01/06/20 10:00 01/07/20 10:10 Breo 100-25 Mcg Ellipta 14 Dose/Dpi IH 02/05/20 09:59 2 inhaler DAILY JERMAINE Administration Furosemide 40 mg 01/07/20 10:00 01/07/20 10:10 Lasix Inj/Pf 40 Mg/4 Ml Sdv IV 02/06/20 09:59 40 mg DAILY JERMAINE Administration Glucagon 1 mg 01/06/20 09:00 Glucagen Inj 1 Mg Vial IM 02/05/20 08:59 PRN PRN EVALUATE FOR BG < 70 Protocol Glucose 15 gm 01/06/20 09:00 Glutose 40% Gel 15 Gm Tube PO 02/05/20 08:59 PRN PRN FOR BG 50-69 IN ALERT PATIENT Protocol Glucose 30 gm 01/06/20 09:00 Glutose 40% Gel 15 Gm Tube PO 02/05/20 08:59 PRN PRN FOR BG < 50 IN ALERT PATIENT Protocol Ceftriaxone Sodium/Dextrose 2 gm in 50 mls @ 100 mls/hr 01/06/20 10:00 01/07/20 11:29 Rocephin Rtu 2 Gm/D5w 50 Ml Premix Bag IV 01/13/20 09:59 Infused DAILY JERMAINE Infusion Azithromycin 500 mg/ Dextrose 250 mls @ 250 mls/hr 01/07/20 22:00 01/08/20 01:00 IV 01/14/20 21:59 Infused QHS JERMAINE Infusion Insulin Human Lispro 0 - 12 unit 01/06/20 11:00 01/07/20 22:30 Humalog Insulin 100 Unit/1 Ml 3 Ml Vial SUBCUT 02/05/20 10:59 4 unit ACHS JERMAINE Administration Protocol Lorazepam 1 mg 01/06/20 15:55 Ativan Inj 2 Mg/1 Ml Vial IV 01/13/20 15:54 Q4HP PRN ANXIETY/AGITATION Ondansetron HCl 4 mg 01/05/20 12:58 01/06/20 15:33 Zofran Odt 4 Mg Tablet PO 02/04/20 12:57 4 mg Q4HP PRN Administration FOR NAUSEA/VOMITING Ondansetron HCl 4 mg 01/05/20 12:58 01/06/20 12:14 Zofran Inj/Pf 4 Mg/2 Ml Sdv IV 02/04/20 12:57 4 mg Q8HP PRN Administration FOR NAUSEA/VOMITING Pregabalin 75 mg 01/07/20 14:30 01/07/20 14:04 Lyrica 75 Mg Capsule PO 02/06/20 14:29 75 mg DAILY JERMAINE Administration Sacubitril/Valsartan 1 tab 01/08/20 10:00 Entresto 49 Mg/51 Mg Tablet PO 02/07/20 09:59 DAILY JERMAINE Discontinued Medications Generic Name Dose Route Start Last Admin Trade Name Freq PRN Reason Stop Dose Admin Albuterol 2 puff 01/05/20 17:55 Ventolin Hfa 8 Gm Mdi IH 02/04/20 17:54 Q4HP PRN FOR WHEEZING Azithromycin 500 mg 01/05/20 11:42 01/05/20 12:22 Zithromax 250 Mg Tablet PO 01/05/20 11:43 500 mg NOW ONE Administration Azithromycin 500 mg 01/06/20 10:00 01/06/20 09:45 Zithromax Inj 500 Mg Vial IV 01/13/20 09:59 500 mg DAILY JERMAINE Administration Enoxaparin Sodium 40 mg 01/06/20 10:00 Lovenox Inj 40 Mg/0.4 Ml Disp.Syrin SUBCUT 02/05/20 09:59 DAILY JERMAINE Furosemide 20 mg 01/05/20 18:30 01/06/20 09:45 Lasix Inj/Pf 20 Mg/2 Ml Sdv IV 02/04/20 18:29 20 mg DAILY JERMAINE Administration Furosemide 40 mg 01/07/20 10:00 Lasix Inj/Pf 20 Mg/2 Ml Sdv IV 02/06/20 09:59 DAILY JERMAINE Furosemide 40 mg 01/06/20 14:49 01/06/20 15:33 Lasix Inj/Pf 20 Mg/2 Ml Sdv IV 02/05/20 14:48 40 mg DAILY JERMAINE Administration Ceftriaxone Sodium/Dextrose 2 gm in 50 mls @ 100 mls/hr 01/05/20 11:42 01/05/20 13:43 Rocephin Rtu 2 Gm/D5w 50 Ml Premix Bag IV 01/05/20 12:11 Infused NOW ONE Infusion Azithromycin 500 mg/ Dextrose 250 mls @ 250 mls/hr 01/07/20 12:00 01/07/20 15:34 IV 01/14/20 11:59 Not Given NOON JERMAINE Lisinopril 10 mg 01/06/20 10:00 01/06/20 09:45 Prinivil 10 Mg Tablet PO 02/05/20 09:59 10 mg DAILY EJRMAINE Administration Nitroglycerin 1 gm 01/05/20 10:24 01/05/20 11:46 Nitrol 2% Ointment 1gm Packet TP 01/05/20 10:25 1 gm NOW ONE Administration Assessment & Plan - Diagnosis (1) COPD exacerbation Is this a current diagnosis for this admission?: Yes Plan: The patient has a hx of COPD and is currently being treated for it. He does quit tobacco approximately 1 month ago. He has been feeling more short of breath this morning however he states that his inhalers actually helped him a lot. Recommendations: -Further treatment per inpatient team. (2) Pneumonia Qualifiers: Pneumonia type: due to unspecified organism Laterality: left Lung location: lower lobe of lung Qualified Code(s): J18.9 - Pneumonia, unspecified organism Is this a current diagnosis for this admission?: Yes Plan: The patient is under antibiotic treatment. Will defer further management to his inpatient team. (3) CAD (coronary artery disease) Plan: The patient, per his report, had a myocardial infarction in 2011 which was apparently treated with 2 stents. There is only evidence of one stent in the LAD on CT scan of the chest. Unfortunately he does not have any of his stent cards and does not remember any details of her cardiac history. He is currently on GDMT except for VALERIY inhibitor/ARB which was discontinued in preparation for initiation of Entresto. He denies ischemic symptoms this morning. Recommendations: -Continue with current management. -Get old cardiac records. -Will continue to follow with you. (4) HTN (hypertension) Is this a current diagnosis for this admission?: Yes Plan: His BP is above goal however he is more fluid overloaded today therefore expect his pressure to be elevated. Recommendations: -Continue with current management for now. -We will continue to monitor his blood pressure and uptitrate medications as needed. (5) HLD (hyperlipidemia) Is this a current diagnosis for this admission?: Yes Plan: His most recent LDL is above his goal at 177 however the patient has not been taking his atorvastatin which was just re-started during this hospitalization. Recommendations: -Continue with current management. -PCM to check fasting LDL and LFT's in 6 weeks. (6) DVT (deep venous thrombosis) Is this a current diagnosis for this admission?: Yes Plan: Per his report, he has had multiple DVT's in the past however he had not been anticoagulated until this hopitalization. He currently has bilateral DVT's. There is no evidence of PE. Recommendations: -Continue with anticoagulation. (7) Heart failure with reduced ejection fraction Is this a current diagnosis for this admission?: Yes Plan: Unfortunately patient continues to be fluid overloaded and is only 369 cc negative in his fluid balance particularly because his fluid restriction is not been followed and he had a little bit over 2000 cc of intake yesterday. It is imperative that his fluid intake is restricted to 1500 cc daily. Although his echocardiogram during this hospitalization was read as to have an LVSF of 45%, after personally reviewing the images, I disagree with that estimate and believe that his EF is more in the 35% range. Recommendations: -Continue with current medical management. -Continue with Entresto 49mg/51mg bid at least 36 hours after last dose of lisinopril. -Please enforce fluid restriction intake to 1500cc daily. -Increase Lasix to 40 mg twice daily. -Strict intake and output. -Daily weight. -Low sodium diet, less than 1500mg daily. -Daily BMP and replace electrolytes as needed.
[2020-01-08 12:34] LABS: ABSOLUTE EOSINOPHILS # (AUTO) 0.4 10^3/uL (0.0-0.6); ABSOLUTE LYMPHOCYTES (AUTO) 0.9 10^3/uL (0.5-4.7); ABSOLUTE MONOCYTES (AUTO) 0.4 10^3/uL (0.1-1.4); ABSOLUTE NEUT (AUTO) 4.9 10^3/uL (1.7-8.2); BASOPHILS % (AUTO) 0.5 % (0-2); EOSINOPHILS % (AUTO) 5.7 % (0-6); HEMATOCRIT 34.9 % (37.9-51.0); HEMOGLOBIN 12.1 g/dL (13.5-17.0); LYMPHOCYTES % (AUTO) 13.9 % (13-45); MEAN CORPUSCULAR HEMOGLOBIN 30.4 pg (27.0-33.4); MEAN CORPUSCULAR HGB CONC 34.7 g/dL (32.0-36.0); MEAN CORPUSCULAR VOLUME 88 fl (80-97); MONOCYTES % (AUTO) 6.8 % (3-13); PLATELET COUNT 321 10^3/uL (150-450); RED BLOOD COUNT 3.99 10^6/uL (4.35-5.55); RED CELL DISTRIBUTION WIDTH 13.6 % (11.5-14.0); SEGMENTED NEUTROPHILS % (AUTO) 73.1 % (42-78); TOTAL CELLS COUNTED % (AUTO) 100 %; WHITE BLOOD COUNT 6.6 10^3/uL (4.0-10.5)
--- NOTE | 2020-01-08 14:02 | PDOC PROGRESS REPORT ---
Subjective Progress Note for:: 01/08/20 Subjective:: Patient reports doing better today, breathing better but still having some chest tightness and wheezing. He is agreeable to a trial of short burst of prednisone for 5 days. He states this is never been tried on him in the past for COPD problems. He states his left stump pain/spasms are significantly improved since starting Lyrica and he states he slept very well last night. Blood pressure is elevated and along with cardiology we are adjusting his cardiac medications daily. Otherwise, no new complaints. Coronavirus test was negative and he was sent to a medical room. Reason For Visit: ACUTE HYPOXEMIC RESPIRATORY FAILURE,COMMUNITY- Physical Exam Vital Signs: Temp Pulse Resp BP Pulse Ox 98.6 F 89 18 151/75 H 99 01/08/20 08:05 01/08/20 08:05 01/08/20 08:05 01/08/20 08:05 01/08/20 08:05 Intake & Output 01/07/20 01/08/20 01/09/20 06:59 06:59 06:59 Intake Total 1415 2091 476 Output Total 2800 1400 Balance -1385 691 476 Weight 101.9 kg 101.8 kg General appearance: PRESENT: no acute distress, well-developed, well-nourished Head exam: PRESENT: atraumatic, normocephalic Eye exam: PRESENT: conjunctiva pink Mouth exam: PRESENT: moist Respiratory exam: PRESENT: unlabored, wheezes. ABSENT: crackles, rales, rhonchi, tachypnea Cardiovascular exam: PRESENT: RRR. ABSENT: diastolic murmur, rubs, systolic murmur GI/Abdominal exam: PRESENT: normal bowel sounds, soft. ABSENT: distended, guarding, mass, organolmegaly, rebound, tenderness Neurological exam: PRESENT: alert, awake, oriented to person, oriented to place, oriented to time, oriented to situation Psychiatric exam: PRESENT: appropriate affect, normal mood Skin exam: PRESENT: dry, intact, warm Results Laboratory Results: 01/08/20 11:50 01/06/20 14:30 01/08/20 11:50 WBC 6.6 RBC 3.99 L Hgb 12.1 L Hct 34.9 L MCV 88 MCH 30.4 MCHC 34.7 RDW 13.6 Plt Count 321 Seg Neutrophils % 73.1 01/05/20 01/06/20 01/06/20 11:10 14:30 14:30 Creatine Kinase 197 H CK-MB (CK-2) 11.10 H Troponin I 0.035 0.028 NT-Pro-B Natriuret Pep 6630 H 01/06/20 01/06/20 01/07/20 20:10 20:10 01:50 Creatine Kinase 260 H 187 H CK-MB (CK-2) 13.10 H Troponin I 0.028 NT-Pro-B Natriuret Pep 01/07/20 01:50 Creatine Kinase CK-MB (CK-2) 9.47 H Troponin I 0.033 NT-Pro-B Natriuret Pep Impressions: Venous Doppler Study 01/05/20 00:00 IMPRESSION: Occlusive and nonocclusive deep venous thrombosis identified bilaterally common femoral to distal. This is progressive when compared to prior.. Chest X-Ray 01/06/20 00:00 IMPRESSION: Mild bibasilar opacities and small effusions, left greater than right. Chest/Abdomen CTA 01/06/20 10:45 IMPRESSION: 1. No evidence of pulmonary embolus. 2. Cardiomegaly, small bilateral effusions and bibasilar consolidation, likely atelectasis although infection not excluded. Additional mild interlobular septal thickening and minimal ground-glass opacities may represent element of mild interstitial edema. 3. Mediastinal and right hilar adenopathy possibly reactive although recommend 3-6 month follow-up to ensure resolution. Lower Extremity Ultrasound 01/07/20 00:00 IMPRESSION: Occluded left superficial femoral artery In the right calf, there is a occlusion of the mid 3rd anterior tibial artery with retrograde flow in the dorsalis pedis artery and distal anterior tibial artery. Remainder of the right lower extremity arterial Doppler is otherwise unremarkable Assessment and Plan - Diagnosis (1) COPD exacerbation Is this a current diagnosis for this admission?: Yes Plan: Uses 3 L nasal cannula at home at baseline Target 89 to 94% oxygen saturation and COPD patient Avoid nebulizer and BiPAP until we rule out coronavirus Breo and albuterol started 5 days of prednisone steroids Azithromycin 01/06/2020 Breathing seems to be about the same as yesterday intermittently sometimes worse. Patient does note that when he uses his inhalers he does see some improvement but this is not particularly long-lasting. Continue inhalers, can start using nebulizer treatments when his coronavirus test is negative 01/07/2020 Breathing is steadily improving, continue inhalers and antibiotics 01/08/2020 Chest still rather tight and having wheezing, start prednisone 40 mg daily for 5 days (2) Pneumonia Qualifiers: Pneumonia type: due to unspecified organism Laterality: left Lung location: lower lobe of lung Qualified Code(s): J18.9 - Pneumonia, unspecified organism Is this a current diagnosis for this admission?: Yes Plan: Suspect community-acquired versus atypical Seen on chest x-ray Consider CT chest Ceftriaxone/azithromycin Respiratory culture Supplemental oxygen, inhalers, bronchial hygiene as above 01/06/2020 CTPA pending to look for possible organizing pneumonia or lung abscess could be causing persistent infection and respiratory symptoms; I am suspicious that he may have a large burden of clots in his lungs that would be largely responsible for his respiratory symptoms rather than infection 01/07/2020 CTPA showed no PE, small bilateral pleural effusions and bibasilar consolidation, mild interlobular septal thickening, minimal groundglass opacities consistent with mild interstitial edema, mediastinal and right hilar adenopathy which requires 3-6-month follow-up to ensure resolution Complete 5 days of antibiotics, then stop 01/08/2020 2 more days of antibiotics then stop to complete 5 days (3) CAD (coronary artery disease) Is this a current diagnosis for this admission?: Yes (4) HTN (hypertension) Is this a current diagnosis for this admission?: Yes (5) HLD (hyperlipidemia) Is this a current diagnosis for this admission?: Yes (6) T2DM (type 2 diabetes mellitus) Is this a current diagnosis for this admission?: Yes (7) History of stroke Is this a current diagnosis for this admission?: Yes (8) Suspected 2019 novel coronavirus infection Is this a current diagnosis for this admission?: Yes (9) Acute on chronic respiratory failure with hypoxemia Is this a current diagnosis for this admission?: Yes (10) COPD (chronic obstructive pulmonary disease) Is this a current diagnosis for this admission?: Yes (11) DVT (deep venous thrombosis) Is this a current diagnosis for this admission?: Yes (12) Acute combined systolic (congestive) and diastolic (congestive) heart failure Is this a current diagnosis for this admission?: Yes Plan: Will need close cardiology follow-up outpatient, cardiology was consulted here with Dr. Avila Appropriate CHF medications started Echocardiogram was read again by Dr. Avila and he noted patient's EF is well below 40% contrary to what was read by the other veterinary assistant. - Time Time Spent with patient: 25-34 minutes Medications reviewed and adjusted accordingly: Yes Anticipated discharge: Home Within: within 48 hours - Inpatient Certification Based on my medical assessment, after consideration of the patient's comorbid ities, presenting symptoms, or acuity I expect that the services needed warrant INPATIENT care.: Yes I certify that my determination is in accordance with my understanding of Medicare's requirements for reasonable and necessary INPATIENT services [42 CFR 412.3e].: Yes Medical Necessity: Significant Comorbidiites Make Outpatient Treatment Too Risky, Need Close Monitoring Due to Risk of Patient Decompensation, Risk of Complication if Not Cared For in Hospital, Risk of Diagnosis Which Will Require Inpatient Eval/Care/Monitoring
[2020-01-08] MEDS: PREDNISONE 20 MG TABLET PO SCH (17:19)
[2020-01-08] MEDS: ATORVASTATIN CALCIUM 40 MG TABLET PO SCH (21:22)
[2020-01-08] MEDS: AZITHROMYCIN 500 MG in DEXTROSE 5%-WATER 250 ML IV SCH (21:54)
[2020-01-08] MEDS: LORAZEPAM INJ 2 MG/1 ML VIAL IV PRN (21:59)
[2020-01-09] MEDS: CARBIDOPA/LEVODOPA 10-100 MG TABLET PO SCH ×3 (05:22→21:15)
[2020-01-09] MEDS: INSULIN LISPRO 100 UNIT/ML 3 ML VIAL SUBCUT SCH ×4 (08:18→21:15)
--- NOTE | 2020-01-09 08:23 | PDOC PROGRESS REPORT ---
Subjective Progress Note for:: 01/09/20 Subjective:: CHERELLE VALDIVIA is a 59 year old male with history of hypertension, hyperlipidemia, diabetes mellitus, COPD, multiple DVT's not anticoagulated, CAD s/p PA treated with stents, tobacco abuse who is consulted to our service fur further evaluation and treatment of dyspnea and abnormal ekg. The patient presented to the ED yesterday by ambulance after being short of breath for several days after being out of medications for several weeks. He was treated in the field with nebulizers which brought his O2 sat from 80% to 90%. His initial chest radiograph was suspicious for pneumonia and vascular congestion. He had been treated for pneumonia since admission. Since admission he was found to have multiple clots in his legs and today developed a new RBBB along with an abnormal rhythm that could be consistent with polymorphic VT. An echocardiogram yesterday, by original report from Dr. Smyht, revealed an LV systolic function of 45%. I personally reviewed the images today and I believe his EF is actually below 40%. His RV was of normal sized and function without evidence of strain. 01/09/2020: The patient tested negative for COVID-19. This morning he is found laying in bed comfortably and feels much better than yesterday. He reports his shortness of breath is dramatically improved. Review of his intake and output reveals that the patient was given over 2 L of fluid again when he supposed to be on a 1500 cc restriction. I addressed this issue with his nurses this morning and it appears that the problem was that there was no order in his chart to limit his fluid intake therefore a specific order has been placed in the chart to limit his fluid intake to 1500 cc daily. Of note, he just quit smoking approximately 1 month ago. He states that his LAD stent was placed in 2011 at which time he did have a myocardial infarction, he states that he had another stent placed at that time however does not remember what vessel was fixed and does not have stent c ards with him. Telemetry demonstrates normal sinus rhythm without complex atrial or ventricular dysrhythmias. Physical exam on 01/09/2020: GENERAL: Pleasant and conversational. Oriented x3 with normal mood. Not in acute distress. Well groomed and well developed. HEENT: Normocephalic, atraumatic. Pupils equal. Sclerae anicteric. Oropharynx moist. NECK: No JVD. No carotid bruits. LUNGS: Clear to auscultation bilaterally. Normal respiratory effort without the use of accessory muscles or intercostal retractions. CARDIOVASCULAR: Regular rate and rhythm, normal S1 and S2 without murmurs, rubs, or gallops. PMI not displaced. ABDOMEN: No masses or tenderness to palpation. No bruit. No splenomegaly or hepatomegaly. No abdominal aorta bruit noted. EXTREMITIES: Trace pitting edema to the right, the left leg is amputated, no cyanosis, no clubbing. +2 pulses femoral and pedal pulses bilaterally. SKIN: No lesions or rashes. MUSCULOSKELETAL: No chest tenderness to palpation. NEUROLOGIC: Nonfocal. No gross sensory or motor deficits bilateral upper or lower extremities. Reason For Visit: ACUTE HYPOXEMIC RESPIRATORY FAILURE,COMMUNITY- Physical Exam Vital Signs: Temp Pulse Resp BP Pulse Ox 98.0 F 84 17 142/56 H 90 L 01/09/20 03:47 01/09/20 03:47 01/09/20 03:47 01/09/20 03:47 01/09/20 03:47 Intake & Output 01/08/20 01/09/20 01/10/20 06:59 06:59 06:59 Intake Total 2091 2524 Output Total 1400 650 Balance 691 1874 Weight 101.8 kg 103.2 kg Results Laboratory Results: 01/08/20 11:50 01/06/20 14:30 01/08/20 11:50 WBC 6.6 RBC 3.99 L Hgb 12.1 L Hct 34.9 L MCV 88 MCH 30.4 MCHC 34.7 RDW 13.6 Plt Count 321 Seg Neutrophils % 73.1 01/05/20 01/06/20 01/06/20 11:10 14:30 14:30 Creatine Kinase 197 H CK-MB (CK-2) 11.10 H Troponin I 0.035 0.028 NT-Pro-B Natriuret Pep 6630 H 01/06/20 01/06/20 01/07/20 20:10 20:10 01:50 Creatine Kinase 260 H 187 H CK-MB (CK-2) 13.10 H Troponin I 0.028 NT-Pro-B Natriuret Pep 01/07/20 01:50 Creatine Kinase CK-MB (CK-2) 9.47 H Troponin I 0.033 NT-Pro-B Natriuret Pep Impressions: Venous Doppler Study 01/05/20 00:00 IMPRESSION: Occlusive and nonocclusive deep venous thrombosis identified bilaterally common femoral to distal. This is progressive when compared to prior.. Chest X-Ray 01/06/20 00:00 IMPRESSION: Mild bibasilar opacities and small effusions, left greater than right. Chest/Abdomen CTA 01/06/20 10:45 IMPRESSION: 1. No evidence of pulmonary embolus. 2. Cardiomegaly, small bilateral effusions and bibasilar consolidation, likely atelectasis although infection not excluded. Additional mild interlobular septal thickening and minimal ground-glass opacities may represent element of mild interstitial edema. 3. Mediastinal and right hilar adenopathy possibly reactive although recommend 3-6 month follow-up to ensure resolution. Lower Extremity Ultrasound 01/07/20 00:00 IMPRESSION: Occluded left superficial femoral artery In the right calf, there is a occlusion of the mid 3rd anterior tibial artery with retrograde flow in the dorsalis pedis artery and distal anterior tibial artery. Remainder of the right lower extremity arterial Doppler is otherwise unremarkable 01/08/20 11:50 01/06/20 14:30 MCV 88 fl (80-97) 01/08/20 11:50 MCH 30.4 pg (27.0-33.4) 01/08/20 11:50 MCHC 34.7 g/dL (32.0-36.0) 01/08/20 11:50 RDW 13.6 % (11.5-14.0) 01/08/20 11:50 Seg Neutrophils % 73.1 % (42-78) 01/08/20 11:50 VBG pH 7.27 (7.30-7.42) L 01/05/20 11:10 VBG pCO2 62.6 mmHg (35-63) 01/05/20 11:10 VBG HCO3 28.1 mmol/L (20-32) 01/05/20 11:10 VBG Base Excess -0.8 mmol/L 01/05/20 11:10 Chloride 102 mmol/L (98-107) 01/06/20 14:30 Carbon Dioxide 29 mmol/L (22-30) 01/06/20 14:30 Anion Gap 6 (5-19) 01/06/20 14:30 Est GFR ( Amer) > 60 (>60) 01/06/20 14:30 Glucose 147 mg/dL (75-110) H 01/06/20 14:30 Lactic Acid 1.0 mmol/L (0.7-2.1) 01/05/20 13:27 Calcium 8.2 mg/dL (8.4-10.2) L 01/06/20 14:30 Phosphorus 5.0 mg/dL (2.5-4.5) H 01/06/20 06:50 Magnesium 1.9 mg/dL (1.6-2.3) 01/06/20 06:50 Total Bilirubin 0.6 mg/dL (0.2-1.3) 01/05/20 11:10 AST 23 U/L (17-59) 01/05/20 11:10 Alkaline Phosphatase 141 U/L (38-126) H 01/05/20 11:10 Total Protein 7.0 g/dL (6.3-8.2) 01/05/20 11:10 Albumin 3.3 g/dL (3.5-5.0) L 01/05/20 11:10 Triglycerides 122 mg/dL (<150) 01/06/20 06:50 Cholesterol 229.20 mg/dL (0-200) H 01/06/20 06:50 LDL Cholesterol Direct 177 mg/dL (<100) H 01/06/20 06:50 VLDL Cholesterol 24.0 mg/dL (10-31) 01/06/20 06:50 HDL Cholesterol 43 mg/dL (>40) 01/06/20 06:50 TSH 6.35 uIU/mL (0.47-4.68) H 01/06/20 06:50 PTH Intact 153.9 pg/mL (10.0-65.0) H 01/07/20 01:50 Urine Color YELLOW 01/05/20 12:55 Urine Appearance SLIGHTLY-CLOUDY 01/05/20 12:55 Urine pH 5.0 (5.0-9.0) 01/05/20 12:55 Ur Specific Burden 1.022 01/05/20 12:55 Urine Protein >=500 mg/dL (NEGATIVE) H 01/05/20 12:55 Urine Glucose (UA) 50 mg/dL (NEGATIVE) H 01/05/20 12:55 Urine Ketones NEGATIVE mg/dL (NEGATIVE) 01/05/20 12:55 Urine Blood MODERATE (NEGATIVE) H 01/05/20 12:55 Urine Nitrite NEGATIVE (NEGATIVE) 01/05/20 12:55 Ur Leukocyte Esterase NEGATIVE (NEGATIVE) 01/05/20 12:55 Urine WBC (Auto) 4 /HPF 01/05/20 12:55 Urine RBC (Auto) 2 /HPF 01/05/20 12:55 01/05/20 01/06/20 01/06/20 11:10 14:30 14:30 Creatine Kinase 197 H CK-MB (CK-2) 11.10 H Troponin I 0.035 0.028 NT-Pro-B Natriuret Pep 6630 H 01/06/20 01/06/20 01/07/20 20:10 20:10 01:50 Creatine Kinase 260 H 187 H CK-MB (CK-2) 13.10 H Troponin I 0.028 NT-Pro-B Natriuret Pep 01/07/20 01:50 Creatine Kinase CK-MB (CK-2) 9.47 H Troponin I 0.033 NT-Pro-B Natriuret Pep Current Medication List Generic Name Dose Route Start Last Admin Trade Name Freq PRN Reason Stop Dose Admin Albuterol 2 puff 01/05/20 18:49 Proair Hfa Inhalation Aerosol 8.5 Gm Mdi IH 02/04/20 18:48 Q4HP PRN FOR WHEEZING Aspirin 81 mg 01/06/20 10:00 01/08/20 10:25 Aspirin 81 Mg Chewable Tablet PO 02/05/20 09:59 81 mg DAILY JERMAINE Administration Atorvastatin Calcium 40 mg 01/05/20 22:00 01/08/20 21:22 Lipitor 40 Mg Tablet PO 02/04/20 21:59 40 mg QHS JERMAINE Administration Calcium Carbonate 1 tab 01/07/20 10:00 01/08/20 10:25 Caltrate 600-Vit D3 400 Tablet PO 02/06/20 09:59 1 tab DAILY JERMAINE Administration Carbidopa/Levodopa 1 tab 01/06/20 22:00 01/09/20 05:22 Sinemet 10-100 Mg Tablet PO 02/05/20 21:59 1 tab Q8 JERMAINE Administration Carvedilol 3.125 mg 01/06/20 20:00 01/08/20 21:22 Coreg 3.125 Mg Tablet PO 02/05/20 19:59 3.125 mg Q12 JERMAINE Administration Cholecalciferol 4,000 unit 01/07/20 16:00 01/08/20 10:25 Vitamin D3 1000 Unit Tablet PO 02/06/20 15:59 4,000 unit DAILY JERMAINE Administration Dextrose 12.5 gm 01/06/20 09:00 Dextrose Inj 50% Syringe (25 Gm/50 Ml) IV 02/05/20 08:59 PRN PRN FOR BG 50-69 IN ALERT PATIENT Protocol Dextrose 25 gm 01/06/20 09:00 Dextrose Inj 50% Syringe (25 Gm/50 Ml) IV 02/05/20 08:59 PRN PRN Protocol Docusate Sodium 100 mg 01/06/20 10:00 01/08/20 09:26 Colace 100 Mg Capsule PO 02/05/20 09:59 Not Given DAILY JERMAINE Enoxaparin Sodium 100 mg 01/05/20 22:00 01/08/20 21:21 Lovenox Inj 100 Mg/1 Ml Disp.Syrin SUBCUT 02/04/20 21:59 100 mg Q12 JERMAINE Administration Fluticasone/Vilanterol 1 inh 01/06/20 10:00 01/08/20 10:26 Breo 100-25 Mcg Ellipta 14 Dose/Dpi IH 02/05/20 09:59 1 inhaler DAILY JERMAINE Administration Furosemide 40 mg 01/08/20 22:00 01/08/20 21:21 Lasix Inj/Pf 40 Mg/4 Ml Sdv IV 02/07/20 21:59 40 mg Q12 JERMAINE Administration Glucagon 1 mg 01/06/20 09:00 Glucagen Inj 1 Mg Vial IM 02/05/20 08:59 PRN PRN EVALUATE FOR BG < 70 Protocol Glucose 15 gm 01/06/20 09:00 Glutose 40% Gel 15 Gm Tube PO 02/05/20 08:59 PRN PRN FOR BG 50-69 IN ALERT PATIENT Protocol Glucose 30 gm 01/06/20 09:00 Glutose 40% Gel 15 Gm Tube PO 02/05/20 08:59 PRN PRN FOR BG < 50 IN ALERT PATIENT Protocol Ceftriaxone Sodium/Dextrose 2 gm in 50 mls @ 100 mls/hr 01/06/20 10:00 /01/03 20:45 Rocephin Rtu 2 Gm/D5w 50 Ml Premix Bag IV 01/13/20 09:59 Infused DAILY JERMAINE Infusion Azithromycin 500 mg/ Dextrose 250 mls @ 250 mls/hr 01/07/20 22:00 01/09/20 00:13 IV 01/14/20 21:59 Infused QHS JERMAINE Infusion Insulin Human Lispro 0 - 12 unit 01/06/20 11:00 01/08/20 22:05 Humalog Insulin 100 Unit/1 Ml 3 Ml Vial SUBCUT 02/05/20 10:59 4 unit ACHS JERMAINE Administration Protocol Lorazepam 1 mg 01/06/20 15:55 01/08/20 21:59 Ativan Inj 2 Mg/1 Ml Vial IV 01/13/20 15:54 1 mg Q4HP PRN Administration ANXIETY/AGITATION Ondansetron HCl 4 mg 01/05/20 12:58 01/06/20 15:33 Zofran Odt 4 Mg Tablet PO 02/04/20 12:57 4 mg Q4HP PRN Administration FOR NAUSEA/VOMITING Ondansetron HCl 4 mg 01/05/20 12:58 01/06/20 12:14 Zofran Inj/Pf 4 Mg/2 Ml Sdv IV 02/04/20 12:57 4 mg Q8HP PRN Administration FOR NAUSEA/VOMITING Prednisone 40 mg 01/08/20 15:30 01/08/20 17:19 Deltasone 20 Mg Tablet PO 01/13/20 15:29 40 mg DAILY JERMAINE Administration Pregabalin 75 mg 01/07/20 14:30 01/08/20 10:25 Lyrica 75 Mg Capsule PO 02/06/20 14:29 75 mg DAILY JERMAINE Administration Sacubitril/Valsartan 1 tab 01/08/20 10:00 01/08/20 10:28 Entresto 49 Mg/51 Mg Tablet PO 02/07/20 09:59 1 tab DAILY JERMAINE Administration Discontinued Medications Generic Name Dose Route Start Last Admin Trade Name Freq PRN Reason Stop Dose Admin Albuterol 2 puff 01/05/20 17:55 Ventolin Hfa 8 Gm Mdi IH 02/04/20 17:54 Q4HP PRN FOR WHEEZING Azithromycin 500 mg 01/05/20 11:42 01/05/20 12:22 Zithromax 250 Mg Tablet PO 01/05/20 11:43 500 mg NOW ONE Administration Azithromycin 500 mg 01/06/20 10:00 01/06/20 09:45 Zithromax Inj 500 Mg Vial IV 01/13/20 09:59 500 mg DAILY JERMAINE Administration Enoxaparin Sodium 40 mg 01/06/20 10:00 Lovenox Inj 40 Mg/0.4 Ml Disp.Syrin SUBCUT 02/05/20 09:59 DAILY JERMAINE Furosemide 20 mg 01/05/20 18:30 01/06/20 09:45 Lasix Inj/Pf 20 Mg/2 Ml Sdv IV 02/04/20 18:29 20 mg DAILY JERMAINE Administration Furosemide 40 mg 01/07/20 10:00 Lasix Inj/Pf 20 Mg/2 Ml Sdv IV 02/06/20 09:59 DAILY JERMAINE Furosemide 40 mg 01/06/20 14:49 01/06/20 15:33 Lasix Inj/Pf 20 Mg/2 Ml Sdv IV 02/05/20 14:48 40 mg DAILY JERMAINE Administration Furosemide 40 mg 01/07/20 10:00 01/08/20 10:25 Lasix Inj/Pf 40 Mg/4 Ml Sdv IV 02/06/20 09:59 40 mg DAILY JERMAINE Administration Ceftriaxone Sodium/Dextrose 2 gm in 50 mls @ 100 mls/hr 01/05/20 11:42 01/05/20 13:43 Rocephin Rtu 2 Gm/D5w 50 Ml Premix Bag IV 01/05/20 12:11 Infused NOW ONE Infusion Azithromycin 500 mg/ Dextrose 250 mls @ 250 mls/hr 01/07/20 12:00 01/07/20 15:34 IV 01/14/20 11:59 Not Given NOON JERMAINE Lisinopril 10 mg 01/06/20 10:00 01/06/20 09:45 Prinivil 10 Mg Tablet PO 02/05/20 09:59 10 mg DAILY JERMAINE Administration Nitroglycerin 1 gm 01/05/20 10:24 01/05/20 11:46 Nitrol 2% Ointment 1gm Packet TP 01/05/20 10:25 1 gm NOW ONE Administration Assessment & Plan - Diagnosis (1) COPD exacerbation Is this a current diagnosis for this admission?: Yes Plan: The patient has a hx of COPD and is currently being treated for it. He does quit tobacco approximately 1 month ago. He feels much improved this morning. Recommendations: -Further treatment per inpatient team. (2) Pneumonia Qualifiers: Pneumonia type: due to unspecified organism Laterality: left Lung location: lower lobe of lung Qualified Code(s): J18.9 - Pneumonia, unspecified organism Is this a current diagnosis for this admission?: Yes Plan: The patient is under antibiotic treatment. Will defer further management to his inpatient team. (3) CAD (coronary artery disease) Plan: The patient, per his report, had a myocardial infarction in 2011 which was apparently treated with 2 stents. There is only evidence of one stent in the LAD on CT scan of the chest. Unfortunately he does not have any of his stent cards and does not remember any details of her cardiac history. He is currently on GDMT. He denies ischemic symptoms this morning. Recommendations: -Continue with current management. -Get old cardiac records. -Will continue to follow with you. (4) HTN (hypertension) Is this a current diagnosis for this admission?: Yes Plan: His BP is above goal however he is more fluid overloaded today therefore expect his pressure to be elevated. Recommendations: -Continue with current management for now. -We will continue to monitor his blood pressure and uptitrate medications as needed. (5) HLD (hyperlipidemia) Is this a current diagnosis for this admission?: Yes Plan: His most recent LDL is above his goal at 177 however the patient has not been taking his atorvastatin which was just re-started during this hospitalization. Recommendations: -Continue with current management. -PCM to check fasting LDL and LFT's in 6 weeks. (6) DVT (deep venous thrombosis) Is this a current diagnosis for this admission?: Yes Plan: Per his report, he has had multiple DVT's in the past however he had not been anticoagulated until this hopitalization. He currently has bilateral DVT's. There is no evidence of PE. Recommendations: -Continue with anticoagulation. (7) Heart failure with reduced ejection fraction Is this a current diagnosis for this admission?: Yes Plan: Unfortunately patient continues to be fluid overloaded and his fluid balance is +1.5 L secondary to drinking excessive amount of fluids. After speaking with his nurses this morning it appears that an order to limit his fluid intake was never put in the chart, I have changed that this morning and there is now an order to that effect. He also needs daily BMPs given his current diuretic regimen. Even though his fluid balance is positive he actually feels much better and his lung exam is actually improved. Although his echocardiogram during this hospitalization was read as to have an LVSF of 45%, after personally reviewing the images, I disagree with that estimate and believe that his EF is more in the 35% range. Recommendations: -Continue with current medical management. -Continue with Entresto 49mg/51mg bid at least 36 hours after last dose of lisinopril. -Please enforce fluid restriction intake to 1500cc daily. -Continue with Lasix to 40 mg twice daily. -Strict intake and output. -Daily weight. -Low sodium diet, less than 1500mg daily. -Daily BMP and replace electrolytes as needed. (8) Ischemic cardiomyopathy Is this a current diagnosis for this admission?: Yes Plan: The patient's ejection fraction by my estimate is approximately 30 to 35%. At this point we will continue with diuresis and up titration of his heart failure medications. He will need reassessment of his ejection fraction in the outpatient setting to finally determine whether or not he is a candidate for ICD.
--- NOTE | 2020-01-09 10:27 | RADIOLOGY REPORT (SQ) ---
EXAM DESCRIPTION: CHEST 2 VIEWS IMAGES COMPLETED DATE/TIME: 01/09/2020 10:07 am REASON FOR STUDY: Heart failure COMPARISON: 01/06/2020 EXAM PARAMETERS: NUMBER OF VIEWS: two views TECHNIQUE: Digital Frontal and Lateral radiographic views of the chest acquired. RADIATION DOSE: NA LIMITATIONS: none FINDINGS: LUNGS AND PLEURA: Increasing bibasilar opacities. MEDIASTINUM AND HILAR STRUCTURES: No masses or contour abnormalities. HEART AND VASCULAR STRUCTURES: Heart enlarged with vascular congestion. BONES: No acute findings. HARDWARE: None in the chest. OTHER: No other significant finding. IMPRESSION: Increasing basilar opacities. Persistent vascular congestion. TECHNICAL DOCUMENTATION: JOB ID: [id number] 2010 [employer]- All Rights Reserved Reading location - IP/workstation name: [email or web address]
[2020-01-09] MEDS: CALCIUM CARBONATE 600 MG/VITAMIN D3 400 UNIT TABLET PO SCH (10:32)
[2020-01-09] MEDS: CARVEDILOL 3.125 MG TABLET PO SCH ×2 (10:32→21:15)
[2020-01-09] MEDS: CHOLECALCIFEROL (D3) 1,000 UNIT (25 MCG) TABLET PO SCH (10:32)
[2020-01-09] MEDS: SACUBITRIL/VALSARTAN 49 MG/51 MG TABLET PO SCH (10:32)
[2020-01-09] MEDS: FUROSEMIDE INJ/PF 40 MG/4 ML SDV IV SCH ×2 (10:33→21:16)
[2020-01-09] MEDS: PREDNISONE 20 MG TABLET PO SCH (10:33)
[2020-01-09] MEDS: DOCUSATE SODIUM 100 MG CAPSULE PO SCH (10:33)
[2020-01-09] MEDS: PREGABALIN 75 MG CAPSULE PO SCH ×2 (10:33→21:15)
[2020-01-09] MEDS: ASPIRIN 81 MG TABLET, CHEWABLE PO SCH (10:33)
[2020-01-09] MEDS: CEFTRIAXONE 2 GM/D5W RTU 2 GM/50 ML RTUPB IV SCH (10:34)
[2020-01-09] MEDS: ENOXAPARIN SODIUM INJ 100 MG/1 ML DISP.SYRIN SUBCUT SCH (10:34)
[2020-01-09] MEDS: FLUTICASONE/VILANTEROL 100-25 MCG/DOSE IH SCH (10:35)
--- NOTE | 2020-01-09 11:35 | PDOC PROGRESS REPORT ---
Subjective Progress Note for:: 01/09/20 Subjective:: Patient fluid intake limited to 1500 cc/day per Dr. Avila. Patient seems to drink fluids nervously all day long per my discussion with him. He states he is always numbness. I discussed the need for him to limit his fluid intake or his Lasix will not be as effective. I recommended that patient see a psychiatrist/counselor after discharge. He states he is still struggling with the of his years ago. He is visibly anxious during our discussion ab out this. Chest x-ray repeated today shows increasing vascular congestion probably due to patient's excessive fluid intake. Antibiotics will end tomorrow Reason For Visit: ACUTE HYPOXEMIC RESPIRATORY FAILURE,COMMUNITY- Physical Exam Vital Signs: Temp Pulse Resp BP Pulse Ox 97.9 F 79 16 143/88 H 97 01/09/20 07:54 01/09/20 07:54 01/09/20 07:54 01/09/20 07:54 01/09/20 07:54 Intake & Output 01/08/20 01/09/20 01/10/20 06:59 06:59 06:59 Intake Total 2091 2524 Output Total 1400 650 Balance 691 1874 Weight 101.8 kg 103.2 kg General appearance: PRESENT: no acute distress, well-developed, well-nourished Head exam: PRESENT: atraumatic, normocephalic Eye exam: PRESENT: conjunctiva pink Mouth exam: PRESENT: moist Respiratory exam: PRESENT: crackles - Very scant/minimal right lung base. ABSENT: rales, rhonchi, wheezes Cardiovascular exam: PRESENT: RRR. ABSENT: diastolic murmur, rubs, systolic murmur GI/Abdominal exam: PRESENT: normal bowel sounds, soft. ABSENT: distended, guarding, mass, organolmegaly, rebound, tenderness Extremities exam: PRESENT: pedal edema Neurological exam: PRESENT: alert, awake, oriented to person, oriented to place, oriented to time, oriented to situation Psychiatric exam: PRESENT: appropriate affect, normal mood Skin exam: PRESENT: dry, intact, warm Results Laboratory Results: 01/08/20 11:50 01/06/20 14:30 01/08/20 11:50 WBC 6.6 RBC 3.99 L Hgb 12.1 L Hct 34.9 L MCV 88 MCH 30.4 MCHC 34.7 RDW 13.6 Plt Count 321 Seg Neutrophils % 73.1 01/05/20 01/06/20 01/06/20 11:10 14:30 14:30 Creatine Kinase 197 H CK-MB (CK-2) 11.10 H Troponin I 0.035 0.028 NT-Pro-B Natriuret Pep 6630 H 01/06/20 01/06/20 01/07/20 20:10 20:10 01:50 Creatine Kinase 260 H 187 H CK-MB (CK-2) 13.10 H Troponin I 0.028 NT-Pro-B Natriuret Pep 01/07/20 01/09/20 01:50 09:30 Creatine Kinase CK-MB (CK-2) 9.47 H Troponin I 0.033 NT-Pro-B Natriuret Pep 3170 H Impressions: Venous Doppler Study 01/05/20 00:00 IMPRESSION: Occlusive and nonocclusive deep venous thrombosis identified bilaterally common femoral to distal. This is progressive when compared to prior.. Chest/Abdomen CTA 01/06/20 10:45 IMPRESSION: 1. No evidence of pulmonary embolus. 2. Cardiomegaly, small bilateral effusions and bibasilar consolidation, likely atelectasis although infection not excluded. Additional mild interlobular septal thickening and minimal ground-glass opacities may represent element of mild interstitial edema. 3. Mediastinal and right hilar adenopathy possibly reactive although recommend 3-6 month follow-up to ensure resolution. Lower Extremity Ultrasound 01/07/20 00:00 IMPRESSION: Occluded left superficial femoral artery In the right calf, there is a occlusion of the mid 3rd anterior tibial artery with retrograde flow in the dorsalis pedis artery and distal anterior tibial artery. Remainder of the right lower extremity arterial Doppler is otherwise unremarkable Chest X-Ray 01/09/20 00:00 IMPRESSION: Increasing basilar opacities. Persistent vascular congestion. Assessment and Plan - Diagnosis (1) COPD exacerbation Is this a current diagnosis for this admission?: Yes (2) Pneumonia Qualifiers: Pneumonia type: due to unspecified organism Laterality: left Lung location: lower lobe of lung Qualified Code(s): J18.9 - Pneumonia, unspecified organism Is this a current diagnosis for this admission?: Yes (3) CAD (coronary artery disease) Is this a current diagnosis for this admission?: Yes (4) HTN (hypertension) Is this a current diagnosis for this admission?: Yes (5) HLD (hyperlipidemia) Is this a current diagnosis for this admission?: Yes (6) T2DM (type 2 diabetes mellitus) Is this a current diagnosis for this admission?: Yes (7) History of stroke Is this a current diagnosis for this admission?: Yes (8) Suspected 2019 novel coronavirus infection Is this a current diagnosis for this admission?: Yes (9) Acute on chronic respiratory failure with hypoxemia Is this a current diagnosis for this admission?: Yes Plan: Multifactorial due to medication noncompliance, COPD exacerbation, pneumonia Uses 3 L nasal cannula at home at baseline Target 89 to 94% oxygen saturation and COPD patient Avoid nebulizer and BiPAP until we rule out coronavirus Breo and albuterol started 5 days of prednisone steroids 01/09/2020 Per patient, he used portable oxygen prior to moving to [place] but he has not had this for some time now Perform 6-minute walk test for oxygen qualification, likely he will at least need exertional supplemental oxygen Expect to improve with diuresis and limiting fluid intake (10) COPD (chronic obstructive pulmonary disease) Is this a current diagnosis for this admission?: Yes (11) DVT (deep venous thrombosis) Is this a current diagnosis for this admission?: Yes (12) Acute combined systolic (congestive) and diastolic (congestive) heart failure Is this a current diagnosis for this admission?: Yes (13) Neuropathic pain Is this a current diagnosis for this admission?: Yes Plan: 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 Lyrica effective (14) Depression Qualifiers: Depression Type: major depressive disorder Major depression recurrence: unspecified whether recurrent Active/Remission status: currently active Major depression episode severity: moderate Qualified Code(s): F32.1 - Major depressive disorder, single episode, moderate Is this a current diagnosis for this admission?: Yes Plan: Needs follow-up with psychiatry/counseling outpatient Started Lexapro which will need to be followed actively by PCP or psychiatrist, patient voiced understanding - Time Time Spent with patient: 15-24 minutes Medications reviewed and adjusted accordingly: Yes Anticipated discharge: Home Within: within 48 hours - Inpatient Certification Based on my medical assessment, after consideration of the patient's comorbidities, presenting symptoms, or acuity I expect that the services needed warrant INPATIENT care.: Yes I certify that my determination is in accordance with my understanding of Medicare's requirements for reasonable and necessary INPATIENT services [42 CFR 412.3e].: Yes Medical Necessity: Significant Comorbidiites Make Outpatient Treatment Too R isky, Need Close Monitoring Due to Risk of Patient Decompensation, Need for IV Antibiotics, Risk of Complication if Not Cared For in Hospital, Risk of Diagnosis Which Will Require Inpatient Eval/Care/Monitoring
[2020-01-09] MEDS: ESCITALOPRAM OXALATE 10 MG TABLET PO SCH (13:18)
[2020-01-09] MEDS: LORAZEPAM INJ 2 MG/1 ML VIAL IV PRN ×2 (17:12→22:19)
[2020-01-09] MEDS: APIXABAN 5 MG TABLET PO SCH (17:13)
[2020-01-09] MEDS ORDERED: APIXABAN 5 MG TABLET PO SCH (18:00)
[2020-01-09] MEDS: ATORVASTATIN CALCIUM 40 MG TABLET PO SCH (21:15)
[2020-01-09] MEDS: AZITHROMYCIN 500 MG in DEXTROSE 5%-WATER 250 ML IV SCH (21:16)
[2020-01-10] MEDS: CARBIDOPA/LEVODOPA 10-100 MG TABLET PO SCH ×3 (05:12→22:03)
--- NOTE | 2020-01-10 08:31 | PDOC PROGRESS REPORT ---
Subjective Progress Note for:: 01/10/20 Subjective:: CHERELLE VALDIVIA is a 59 year old male with history of hypertension, hyperlipidemia, diabetes mellitus, COPD, multiple DVT's not anticoagulated, CAD s/p HI treated with stents, tobacco abuse who is consulted to our service fur further evaluation and treatment of dyspnea and abnormal ekg. The patient presented to the ED yesterday by ambulance after being short of breath for several days after being out of medications for several weeks. He was treated in the field with nebulizers which brought his O2 sat from 80% to 90%. His initial chest radiograph was suspicious for pneumonia and vascular congestion. He had been treated for pneumonia since admission. Since admission he was found to have multiple clots in his legs and today developed a new RBBB along with an abnormal rhythm that could be consistent with polymorphic VT. An echocardiogram yesterday, by original report from Dr. Smyth, revealed an LV systolic function of 45%. I personally reviewed the images today and I believe his EF is actually below 40%. His RV was of normal sized and function without evidence of strain. : The patient tested negative for COVID-19. This morning the patient is awake and sitting up in bed without any cardiac complaints. His chest x-ray demonstrated persistence of vascular congestion despite increasing diuretic dose as his fluid intake was not limited to 1500 cc as recommended. This was done yesterday and the patient feels better today. His telemetry shows normal sinus rhythm with nonconducted PACs and no complex atrial or ventricular dysrhythmias. As far as coronary artery disease goes, he had a stent placed in the LAD in 2011 at which time he did have a myocardial infarction, he states that he had another stent placed at that time however does not remember what vessel was fixed and does not have stent cards with him. Physical exam on 01/09/2020: GENERAL: Pleasant and conversational. Oriented x3 with normal mood. Not in acute distress. Well groomed and well developed. HEENT: Normocephalic, atraumatic. Pupils equal. Sclerae anicteric. Oropharynx moist. NECK: No JVD. No carotid bruits. LUNGS: Clear to auscultation bilaterally with depressed breath sounds at the bases. Normal respiratory effort without the use of accessory muscles or intercostal retractions. CARDIOVASCULAR: Regular rate and rhythm, normal S1 and S2 without murmurs, rubs, or gallops. PMI not displaced. ABDOMEN: No masses or tenderness to palpation. No bruit. No splenomegaly or hepatomegaly. No abdominal aorta bruit noted. EXTREMITIES: Trace pitting edema to the right, the left leg is amputated, no cyanosis, no clubbing. +2 pulses femoral and pedal pulses bilaterally. SKIN: No lesions or rashes. MUSCULOSKELETAL: No chest tenderness to palpation. NEUROLOGIC: Nonfocal. No gross sensory or motor deficits bilateral upper or lower extremities. Reason For Visit: ACUTE HYPOXEMIC RESPIRATORY FAILURE,COMMUNITY- Physical Exam Vital Signs: Temp Pulse Resp BP Pulse Ox 97.9 F 79 20 149/92 H 92 01/10/20 03:18 01/10/20 07:00 01/10/20 03:18 01/10/20 03:18 01/10/20 03:18 Intake & Output 01/09/20 01/10/20 01/11/20 06:59 06:59 06:59 Intake Total 2524 1590 Output Total 650 6200 Balance 1874 -4610 Weight 103.2 kg 97.6 kg Results Laboratory Results: 01/08/20 11:50 01/06/20 14:30 01/05/20 01/06/20 01/06/20 11:10 14:30 14:30 Creatine Kinase 197 H CK-MB (CK-2) 11.10 H Troponin I 0.035 0.028 NT-Pro-B Natriuret Pep 6630 H 01/06/20 01/06/20 01/07/20 20:10 20:10 01:50 Creatine Kinase 260 H 187 H CK-MB (CK-2) 13.10 H Troponin I 0.028 NT-Pro-B Natriuret Pep 01/07/20 01/09/20 01:50 09:30 Creatine Kinase CK-MB (CK-2) 9.47 H Troponin I 0.033 NT-Pro-B Natriuret Pep 3170 H Impressions: Venous Doppler Study 01/05/20 00:00 IMPRESSION: Occlusive and nonocclusive deep venous thrombosis identified bilaterally common femoral to distal. This is progressive when compared to prior.. Chest/Abdomen CTA 01/06/20 10:45 IMPRESSION: 1. No evidence of pulmonary embolus. 2. Cardiomegaly, small bilateral effusions and bibasilar consolidation, likely atelectasis although infection not excluded. Additional mild interlobular septal thickening and minimal ground-glass opacities may represent element of mild interstitial edema. 3. Mediastinal and right hilar adenopathy possibly reactive although recommend 3-6 month follow-up to ensure resolution. Lower Extremity Ultrasound 01/07/20 00:00 IMPRESSION: Occluded left superficial femoral artery In the right calf, there is a occlusion of the mid 3rd anterior tibial artery with retrograde flow in the dorsalis pedis artery and distal anterior tibial artery. Remainder of the right lower extremity arterial Doppler is otherwise unremarkable Chest X-Ray 01/09/20 00:00 IMPRESSION: Increasing basilar opacities. Persistent vascular congestion. 01/08/20 11:50 01/06/20 14:30 MCV 88 fl (80-97) 01/08/20 11:50 MCH 30.4 pg (27.0-33.4) 01/08/20 11:50 MCHC 34.7 g/dL (32.0-36.0) 01/08/20 11:50 RDW 13.6 % (11.5-14.0) 01/08/20 11:50 Seg Neutrophils % 73.1 % (42-78) 01/08/20 11:50 VBG pH 7.27 (7.30-7.42) L 01/05/20 11:10 VBG pCO2 62.6 mmHg (35-63) 01/05/20 11:10 VBG HCO3 28.1 mmol/L (20-32) 01/05/20 11:10 VBG Base Excess -0.8 mmol/L 01/05/20 11:10 Chloride 102 mmol/L (98-107) 01/06/20 14:30 Carbon Dioxide 29 mmol/L (22-30) 01/06/20 14:30 Anion Gap 6 (5-19) 01/06/20 14:30 Est GFR ( Amer) > 60 (>60) 01/06/20 14:30 Glucose 147 mg/dL (75-110) H 01/06/20 14:30 Lactic Acid 1.0 mmol/L (0.7-2.1) 01/05/20 13:27 Calcium 8.2 mg/dL (8.4-10.2) L 01/06/20 14:30 Phosphorus 5.0 mg/dL (2.5-4.5) H 01/06/20 06:50 Magnesium 1.9 mg/dL (1.6-2.3) 01/06/20 06:50 Total Bilirubin 0.6 mg/dL (0.2-1.3) 01/05/20 11:10 AST 23 U/L (17-59) 01/05/20 11:10 Alkaline Phosphatase 141 U/L (38-126) H 01/05/20 11:10 Total Protein 7.0 g/dL (6.3-8.2) 01/05/20 11:10 Albumin 3.3 g/dL (3.5-5.0) L 01/05/20 11:10 Triglycerides 122 mg/dL (<150) 01/06/20 06:50 Cholesterol 229.20 mg/dL (0-200) H 01/06/20 06:50 LDL Cholesterol Direct 177 mg/dL (<100) H 01/06/20 06:50 VLDL Cholesterol 24.0 mg/dL (10-31) 01/06/20 06:50 HDL Cholesterol 43 mg/dL (>40) 01/06/20 06:50 TSH 6.35 uIU/mL (0.47-4.68) H 01/06/20 06:50 PTH Intact 153.9 pg/mL (10.0-65.0) H 01/07/20 01:50 Urine Color YELLOW 01/05/20 12:55 Urine Appearance SLIGHTLY-CLOUDY 01/05/20 12:55 Urine pH 5.0 (5.0-9.0) 01/05/20 12:55 Ur Specific [place] 1.022 01/05/20 12:55 Urine Protein >=500 mg/dL (NEGATIVE) H 01/05/20 12:55 Urine Glucose (UA) 50 mg/dL (NEGATIVE) H 01/05/20 12:55 Urine Ketones NEGATIVE mg/dL (NEGATIVE) 01/05/20 12:55 Urine Blood MODERATE (NEGATIVE) H 01/05/20 12:55 Urine Nitrite NEGATIVE (NEGATIVE) 01/05/20 12:55 Ur Leukocyte Esterase NEGATIVE (NEGATIVE) 01/05/20 12:55 Urine WBC (Auto) 4 /HPF 01/05/20 12:55 Urine RBC (Auto) 2 /HPF 01/05/20 12:55 01/05/20 01/06/20 01/06/20 11:10 14:30 14:30 Creatine Kinase 197 H CK-MB (CK-2) 11.10 H Troponin I 0.035 0.028 NT-Pro-B Natriuret Pep 6630 H 01/06/20 01/06/20 01/07/20 20:10 20:10 01:50 Creatine Kinase 260 H 187 H CK-MB (CK-2) 13.10 H Troponin I 0.028 NT-Pro-B Natriuret Pep 01/07/20 01/09/20 01:50 09:30 Creatine Kinase CK-MB (CK-2) 9.47 H Troponin I 0.033 NT-Pro-B Natriuret Pep 3170 H Current Medication List Generic Name Dose Route Start Last Admin Trade Name Freq PRN Reason Stop Dose Admin Albuterol 2 puff 01/05/20 18:49 Proair Hfa Inhalation Aerosol 8.5 Gm Mdi IH 02/04/20 18:48 Q4HP PRN FOR WHEEZING Apixaban 10 mg 01/09/20 18:00 01/09/20 17:13 Eliquis 5 Mg Tablet PO 01/16/20 10:01 10 mg BID JERMAINE Administration Apixaban 5 mg 01/16/20 18:00 Eliquis 5 Mg Tablet PO 02/15/20 17:59 BID JERMAINE Aspirin 81 mg 01/06/20 10:00 01/09/20 10:33 Aspirin 81 Mg Chewable Tablet PO 02/05/20 09:59 81 mg DAILY JERMAINE Administration Atorvastatin Calcium 40 mg 01/05/20 22:00 01/09/20 21:15 Lipitor 40 Mg Tablet PO 02/04/20 21:59 40 mg QHS JERMAINE Administration Calcium Carbonate 1 tab 01/07/20 10:00 01/09/20 10:32 Caltrate 600-Vit D3 400 Tablet PO 02/06/20 09:59 1 tab DAILY JERMAINE Administration Carbidopa/Levodopa 1 tab 01/06/20 22:00 01/10/20 05:12 Sinemet 10-100 Mg Tablet PO 02/05/20 21:59 1 tab Q8 JERMAINE Administration Carvedilol 6.25 mg 01/10/20 10:00 Coreg 6.25 Mg Tablet PO 02/09/20 09:59 Q12 JERMAINE Cholecalciferol 4,000 unit 01/07/20 16:00 01/09/20 10:32 Vitamin D3 1000 Unit Tablet PO 02/06/20 15:59 4,000 unit DAILY JERMAINE Administration Dextrose 12.5 gm 01/06/20 09:00 Dextrose Inj 50% Syringe (25 Gm/50 Ml) IV 02/05/20 08:59 PRN PRN FOR BG 50-69 IN ALERT PATIENT Protocol Dextrose 25 gm 01/06/20 09:00 Dextrose Inj 50% Syringe (25 Gm/50 Ml) IV 02/05/20 08:59 PRN PRN Protocol Docusate Sodium 100 mg 01/06/20 10:00 01/09/20 10:33 Colace 100 Mg Capsule PO 02/05/20 09:59 100 mg DAILY JERMAINE Administration Escitalopram Oxalate 10 mg 01/09/20 11:45 01/09/20 13:18 Lexapro 10 Mg Tablet PO 02/08/20 11:44 10 mg DAILY JERMAINE Administration Fluticasone/Vilanterol 1 inh 01/06/20 10:00 01/09/20 10:35 Breo 100-25 Mcg Ellipta 14 Dose/Dpi IH 02/05/20 09:59 1 inhaler DAILY JERMAINE Administration Furosemide 40 mg 01/08/20 22:00 01/09/20 21:16 Lasix Inj/Pf 40 Mg/4 Ml Sdv IV 02/07/20 21:59 40 mg Q12 JERMAINE Administration Glucagon 1 mg 01/06/20 09:00 Glucagen Inj 1 Mg Vial IM 02/05/20 08:59 PRN PRN EVALUATE FOR BG < 70 Protocol Glucose 15 gm 01/06/20 09:00 Glutose 40% Gel 15 Gm Tube PO 02/05/20 08:59 PRN PRN FOR BG 50-69 IN ALERT PATIENT Protocol Glucose 30 gm 01/06/20 09:00 Glutose 40% Gel 15 Gm Tube PO 02/05/20 08:59 PRN PRN FOR BG < 50 IN ALERT PATIENT Protocol Ceftriaxone Sodium/Dextrose 2 gm in 50 mls @ 100 mls/hr 01/10/20 10:00 Rocephin Rtu 2 Gm/D5w 50 Ml Premix Bag IV 01/11/20 09:59 DAILY JERMAINE Azithromycin 500 mg/ Dextrose 250 mls @ 250 mls/hr 01/10/20 22:00 IV 01/11/20 21:59 QHS JERMAINE Insulin Human Lispro 0 - 12 unit 01/06/20 11:00 01/09/20 21:15 Humalog Insulin 100 Unit/1 Ml 3 Ml Vial SUBCUT 02/05/20 10:59 4 unit ACHS JERMAINE Administration Protocol Lorazepam 1 mg 01/06/20 15:55 01/09/20 22:19 Ativan Inj 2 Mg/1 Ml Vial IV 01/13/20 15:54 1 mg Q4HP PRN Administration ANXIETY/AGITATION Ondansetron HCl 4 mg 01/05/20 12:58 01/06/20 15:33 Zofran Odt 4 Mg Tablet PO 02/04/20 12:57 4 mg Q4HP PRN Administration FOR NAUSEA/VOMITING Ondansetron HCl 4 mg 01/05/20 12:58 01/06/20 12:14 Zofran Inj/Pf 4 Mg/2 Ml Sdv IV 02/04/20 12:57 4 mg Q8HP PRN Administration FOR NAUSEA/VOMITING Prednisone 40 mg 01/08/20 15:30 01/09/20 10:33 Deltasone 20 Mg Tablet PO 01/13/20 15:29 40 mg DAILY JERMAINE Administration Pregabalin 75 mg 01/09/20 22:00 01/09/20 21:15 Lyrica 75 Mg Capsule PO 02/08/20 21:59 75 mg Q12 JERMAINE Administration Sacubitril/Valsartan 1 tab 01/10/20 10:00 Entresto 49 Mg/51 Mg Tablet PO 02/09/20 09:59 BID JERMAINE Discontinued Medications Generic Name Dose Route Start Last Admin Trade Name Freq PRN Reason Stop Dose Admin Albuterol 2 puff 01/05/20 17:55 Ventolin Hfa 8 Gm Mdi IH 02/04/20 17:54 Q4HP PRN FOR WHEEZING Azithromycin 500 mg 01/05/20 11:42 01/05/20 12:22 Zithromax 250 Mg Tablet PO 01/05/20 11:43 500 mg NOW ONE Administration Azithromycin 500 mg 01/06/20 10:00 01/06/20 09:45 Zithromax Inj 500 Mg Vial IV 01/13/20 09:59 500 mg DAILY JERMAINE Administration Carvedilol 3.125 mg 01/06/20 20:00 01/09/20 21:15 Coreg 3.125 Mg Tablet PO 02/05/20 19:59 3.125 mg Q12 JERMAINE Administration Enoxaparin Sodium 40 mg 01/06/20 10:00 Lovenox Inj 40 Mg/0.4 Ml Disp.Syrin SUBCUT 02/05/20 09:59 DAILY JERMAINE Enoxaparin Sodium 100 mg 01/05/20 22:00 01/09/20 10:34 Lovenox Inj 100 Mg/1 Ml Disp.Syrin SUBCUT 02/04/20 21:59 100 mg Q12 JERMAINE Administration Furosemide 20 mg 01/05/20 18:30 01/06/20 09:45 Lasix Inj/Pf 20 Mg/2 Ml Sdv IV 02/04/20 18:29 20 mg DAILY JERMAINE Administration Furosemide 40 mg 01/07/20 10:00 Lasix Inj/Pf 20 Mg/2 Ml Sdv IV 02/06/20 09:59 DAILY JERMAINE Furosemide 40 mg 01/06/20 14:49 01/06/20 15:33 Lasix Inj/Pf 20 Mg/2 Ml Sdv IV 02/05/20 14:48 40 mg DAILY JERMAINE Administration Furosemide 40 mg 01/07/20 10:00 01/08/20 10:25 Lasix Inj/Pf 40 Mg/4 Ml Sdv IV 02/06/20 09:59 40 mg DAILY JERMAINE Administration Ceftriaxone Sodium/Dextrose 2 gm in 50 mls @ 100 mls/hr 01/05/20 11:42 13:43 Rocephin Rtu 2 Gm/D5w 50 Ml Premix Bag IV 01/05/20 12:11 Infused NOW ONE Infusion Ceftriaxone Sodium/Dextrose 2 gm in 50 mls @ 100 mls/hr 01/06/20 10:00 01/09/20 11:30 Rocephin Rtu 2 Gm/D5w 50 Ml Premix Bag IV 01/13/20 09:59 Infused DAILY JERMAINE Infusion Azithromycin 500 mg/ Dextrose 250 mls @ 250 mls/hr 01/07/20 12:00 01/07/20 15:34 IV 01/14/20 11:59 Not Given NOON JERMAINE Azithromycin 500 mg/ Dextrose 250 mls @ 250 mls/hr 01/07/20 22:00 01/09/20 23:10 IV 01/14/20 21:59 Infused QHS JERMAINE Infusion Lisinopril 10 mg 01/06/20 10:00 01/06/20 09:45 Prinivil 10 Mg Tablet PO 02/05/20 09:59 10 mg DAILY JERMAINE Administration Nitroglycerin 1 gm 01/05/20 10:24 01/05/20 11:46 Nitrol 2% Ointment 1gm Packet TP 01/05/20 10:25 1 gm NOW ONE Administration Pregabalin 75 mg 01/07/20 14:30 01/09/20 10:33 Lyrica 75 Mg Capsule PO 02/06/20 14:29 75 mg DAILY JERMAINE Administration Sacubitril/Valsartan 1 tab 01/08/20 10:00 01/09/20 10:32 Entresto 49 Mg/51 Mg Tablet PO 02/07/20 09:59 1 tab DAILY JERMAINE Administration Assessment & Plan - Diagnosis (1) COPD exacerbation Is this a current diagnosis for this admission?: Yes Plan: The patient has a hx of COPD and is currently being treated for it. He quit tobacco approximately 1 month ago. He feels much improved this morning. Recommendations: -Further treatment per inpatient team. (2) Pneumonia Qualifiers: Pneumonia type: due to unspecified organism Laterality: left Lung location: lower lobe of lung Qualified Code(s): J18.9 - Pneumonia, unspecified organism Is this a current diagnosis for this admission?: Yes Plan: The patient is under antibiotic treatment. Will defer further management to his inpatient team. (3) CAD (coronary artery disease) Plan: The patient, per his report, had a myocardial infarction in 2011 which was apparently treated with 2 stents. There is only evidence of one stent in the LAD on CT scan of the chest. Unfortunately he does not have any of his stent cards and does not remember any details of her cardiac history. He is currently on GDMT. He denies ischemic symptoms this morning. Recommendations: -Continue with current management. -Get old cardiac records. -Will continue to follow with you. -The patient was given my office number to schedule an appointment once he is discharged. (4) HTN (hypertension) Is this a current diagnosis for this admission?: Yes Plan: His BP is above goal despite being now 3 L negative in his fluid balance. Recommendations: -Increase carvedilol to 12.5 mg twice daily. -We will continue to monitor his blood pressure and uptitrate medications as needed. (5) HLD (hyperlipidemia) Is this a current diagnosis for this admission?: Yes Plan: His most recent LDL is above his goal at 177 however the patient has not been taking his atorvastatin which was just re-started during this hospitalization. Recommendations: -Continue with current management. -PCM to check fasting LDL and LFT's in 6 weeks. (6) DVT (deep venous thrombosis) Is this a current diagnosis for this admission?: Yes Plan: Per his report, he has had multiple DVT's in the past however he had not been anticoagulated until this hopitalization. He currently has bilateral DVT's. There is no evidence of PE. Recommendations: -Continue with anticoagulation. (7) Heart failure with reduced ejection fraction Is this a current diagnosis for this admission?: Yes Plan: The patient continues to improve slowly particularly now that his fluid intake has been restricted. Per my calculations, he is now -3 L in his fluid balance. Although his echocardiogram during this hospitalization was read as to have an LVSF of 45%, after personally reviewing the images, I disagree with that estimate and believe that his EF is more in the 35% range. Recommendations: -Continue with current medical management. -Continue with Entresto 49mg/51mg bid at least 36 hours after last dose of lisinopril. -Continue to enforce fluid restriction intake to 1500cc daily. -Continue with Lasix to 40 mg twice daily. -Strict intake and output. -Daily weight. -Low sodium diet, less than 1500mg daily. -Daily BMP and replace electrolytes as needed. -The patient was given my office contact number to schedule an appointment once he is discharged. (8) Ischemic cardiomyopathy Is this a current diagnosis for this admission?: Yes Plan: The patient's ejection fraction by my estimate is approximately 30 to 35%. At this point we will continue with diuresis and up titration of his heart failure medications. He will need reassessment of his ejection fraction in the outpatient setting to finally determine whether or not he is a candidate for ICD.
[2020-01-10 09:16] LABS: ANION GAP 5 (5-19); BLOOD UREA NITROGEN 34 mg/dL (7-20); CALCIUM 9.1 mg/dL (8.4-10.2); CARBON DIOXIDE 35 mmol/L (22-30); CHLORIDE 97 mmol/L (98-107); GLUCOSE 172 mg/dL (75-110); POTASSIUM 4.3 mmol/L (3.6-5.0)
[2020-01-10] MEDS: INSULIN LISPRO 100 UNIT/ML 3 ML VIAL SUBCUT SCH ×4 (09:22→22:04)
[2020-01-10] MEDS: ASPIRIN 81 MG TABLET, CHEWABLE PO SCH (09:47)
[2020-01-10] MEDS: CARVEDILOL 6.25 MG TABLET PO SCH ×2 (09:47→22:03)
[2020-01-10] MEDS: CALCIUM CARBONATE 600 MG/VITAMIN D3 400 UNIT TABLET PO SCH (09:47)
[2020-01-10] MEDS: DOCUSATE SODIUM 100 MG CAPSULE PO SCH (09:47)
[2020-01-10] MEDS: PREDNISONE 20 MG TABLET PO SCH (09:47)
[2020-01-10] MEDS: APIXABAN 5 MG TABLET PO SCH ×2 (09:48→17:10)
[2020-01-10] MEDS: PREGABALIN 75 MG CAPSULE PO SCH ×2 (09:48→22:03)
[2020-01-10] MEDS: FUROSEMIDE INJ/PF 40 MG/4 ML SDV IV SCH ×2 (09:51→22:04)
[2020-01-10] MEDS: ESCITALOPRAM OXALATE 10 MG TABLET PO SCH (09:51)
[2020-01-10] MEDS: CHOLECALCIFEROL (D3) 1,000 UNIT (25 MCG) TABLET PO SCH (09:51)
[2020-01-10] MEDS: FLUTICASONE/VILANTEROL 100-25 MCG/DOSE IH SCH (09:59)
[2020-01-10] MEDS ORDERED: CEFTRIAXONE 2 GM/D5W RTU 2 GM/50 ML RTUPB IV SCH (10:00)
[2020-01-10] MEDS: SACUBITRIL/VALSARTAN 49 MG/51 MG TABLET PO SCH ×2 (10:05→17:11)
--- NOTE | 2020-01-10 14:26 | PDOC PROGRESS REPORT ---
Subjective Progress Note for:: 01/10/20 Subjective:: 01/09/2020 Patient fluid intake limited to 1500 cc/day per Dr. Avila. Patient seems to drink fluids nervously all day long per my discussion with him. He states he is always numbness. I discussed the need for him to limit his fluid intake or his Lasix will not be as effective. I recommended that patient see a psychiatrist/counselor after discharge. He states he is still struggling with the of his years ago. He is visibly anxious during our discussion about this. Chest x-ray repeated today shows increasing vascular congestion probably due to patient's excessive fluid intake. Antibiotics will end tomorrow 01/10/2020 Patient doing fine today. Dr. Avila would like him to stay 1 more day for additional diuresis. Blood pressure elevated and I will adjust his medications to be better optimized for his heart failure and BP. 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 He also voices that he is upset that his fluid intake has been limited to 1.5 L/day. He told her reportedly he will resume eating and drinking what ever he wants when he goes home. BNP is notably lower. Plan to discharge tomorrow. Reason For Visit: ACUTE HYPOXEMIC RESPIRATORY FAILURE,COMMUNITY- Physical Exam Vital Signs: Temp Pulse Resp BP Pulse Ox 97.5 F 76 17 155/88 H 94 01/10/20 11:09 01/10/20 11:09 01/10/20 11:09 01/10/20 11:09 01/10/20 11:09 Intake & Output 01/09/20 01/10/20 01/11/20 06:59 06:59 06:59 Intake Total 2524 1590 610 Output Total 650 6200 Balance 1874 -4610 610 Weight 103.2 kg 97.6 kg General appearance: PRESENT: no acute distress, well-developed, well-nourished Head exam: PRESENT: atraumatic, normocephalic Eye exam: PRESENT: conjunctiva pink Mouth exam: PRESENT: moist Respiratory exam: PRESENT: clear to auscultation jose. ABSENT: rales, rhonchi, wheezes Cardiovascular exam: PRESENT: RRR. ABSENT: diastolic murmur, rubs, systolic murmur GI/Abdominal exam: PRESENT: normal bowel sounds, soft. ABSENT: distended, guarding, mass, organolmegaly, rebound, tenderness Extremities exam: PRESENT: pedal edema Neurological exam: PRESENT: alert, awake, oriented to person, oriented to place, oriented to time, oriented to situation Skin exam: PRESENT: dry, warm Results Laboratory Results: 01/08/20 11:50 01/10/20 08:41 01/10/20 08:41 Sodium 137.3 Potassium 4.3 Chloride 97 L Carbon Dioxide 35 H Anion Gap 5 BUN 34 H Creatinine 1.05 Est GFR ( Amer) > 60 Glucose 172 H Calcium 9.1 01/05/20 11:10 Blood Blood Culture - Final NO GROWTH IN 5 DAYS 01/05/20 11:18 Blood Blood Culture - Final NO GROWTH IN 5 DAYS 01/05/20 01/06/20 01/06/20 11:10 14:30 14:30 Creatine Kinase 197 H CK-MB (CK-2) 11.10 H Troponin I 0.035 0.028 NT-Pro-B Natriuret Pep 6630 H 01/06/20 01/06/20 01/07/20 20:10 20:10 01:50 Creatine Kinase 260 H 187 H CK-MB (CK-2) 13.10 H Troponin I 0.028 NT-Pro-B Natriuret Pep 01/07/20 01/09/20 01/10/20 01:50 09:30 08:41 Creatine Kinase CK-MB (CK-2) 9.47 H Troponin I 0.033 NT-Pro-B Natriuret Pep 3170 H 3060 H Impressions: Venous Doppler Study 01/05/20 00:00 IMPRESSION: Occlusive and nonocclusive deep venous thrombosis identified bilaterally common femoral to distal. This is progressive when compared to prior.. Chest/Abdomen CTA 01/06/20 10:45 IMPRESSION: 1. No evidence of pulmonary embolus. 2. Cardiomegaly, small bilateral effusions and bibasilar consolidation, likely atelectasis although infection not excluded. Additional mild interlobular s eptal thickening and minimal ground-glass opacities may represent element of mild interstitial edema. 3. Mediastinal and right hilar adenopathy possibly reactive although recommend 3-6 month follow-up to ensure resolution. Lower Extremity Ultrasound 01/07/20 00:00 IMPRESSION: Occluded left superficial femoral artery In the right calf, there is a occlusion of the mid 3rd anterior tibial artery with retrograde flow in the dorsalis pedis artery and distal anterior tibial artery. Remainder of the right lower extremity arterial Doppler is otherwise unremarkable Chest X-Ray 01/09/20 00:00 IMPRESSION: Increasing basilar opacities. Persistent vascular congestion. Assessment and Plan - Diagnosis (1) COPD exacerbation Is this a current diagnosis for this admission?: Yes Plan: Uses 3 L nasal cannula at home at baseline Target 89 to 94% oxygen saturation and COPD patient Avoid nebulizer and BiPAP until we rule out coronavirus Breo and albuterol started 5 days of prednisone steroids Azithromycin 01/06/2020 Breathing seems to be about the same as yesterday intermittently sometimes worse. Patient does note that when he uses his inhalers he does see some improvement but this is not particularly long-lasting. Continue inhalers, can start using nebulizer treatments when his coronavirus test is negative 01/07/2020 Breathing is steadily improving, continue inhalers and antibiotics 01/08/2020 Chest still rather tight and having wheezing, start prednisone 40 mg daily for 5 days 01/10/2020 No wheezing on exam anymore, breathing much better. Does not need oxygen at rest per nursing evaluation. Plan to finish steroid course. No need for further antibiotics (2) Pneumonia Qualifiers: Pneumonia type: due to unspecified organism Laterality: left Lung location: lower lobe of lung Qualified Code(s): J18.9 - Pneumonia, unspecified organism Is this a current diagnosis for this admission?: Yes Plan: Suspect community-acquired versus atypical Seen on chest x-ray Consider CT chest Ceftriaxone/azithromycin Respiratory culture Supplemental oxygen, inhalers, bronchial hygiene as above 01/06/2020 CTPA pending to look for possible organizing pneumonia or lung abscess could be causing persistent infection and respiratory symptoms; I am suspicious that he may have a large burden of clots in his lungs that would be largely responsible for his respiratory symptoms rather than infection 01/07/2020 CTPA showed no PE, small bilateral pleural effusions and bibasilar consolidation, mild interlobular septal thickening, minimal groundglass opacities consistent with mild interstitial edema, mediastinal and right hilar a denopathy which requires 3-6-month follow-up to ensure resolution Complete 5 days of antibiotics, then stop 01/08/2020 2 more days of antibiotics then stop to complete 5 days 01/10/2020 Antibiotics complete, can stop these today (3) CAD (coronary artery disease) Is this a current diagnosis for this admission?: Yes (4) HTN (hypertension) Is this a current diagnosis for this admission?: Yes (5) HLD (hyperlipidemia) Is this a current diagnosis for this admission?: Yes (6) T2DM (type 2 diabetes mellitus) Is this a current diagnosis for this admission?: Yes (7) History of stroke Is this a current diagnosis for this admission?: Yes (8) Suspected 2019 novel coronavirus infection Is this a current diagnosis for this admission?: Yes (9) Acute on chronic respiratory failure with hypoxemia Is this a current diagnosis for this admission?: Yes (10) COPD (chronic obstructive pulmonary disease) Is this a current diagnosis for this admission?: Yes (11) DVT (deep venous thrombosis) Is this a current diagnosis for this admission?: Yes (12) Acute combined systolic (congestive) and diastolic (congestive) heart failure Is this a current diagnosis for this admission?: Yes (13) Neuropathic pain Is this a current diagnosis for this admission?: Yes (14) Depression Qualifiers: Depression Type: major depressive disorder Major depression recurrence: unspecified whether recurrent Active/Remission status: currently active Major depression episode severity: moderate Qualified Code(s): F32.1 - Major depressive disorder, single episode, moderate Is this a current diagnosis for this admission?: Yes - Time Time Spent with patient: 25-34 minutes Medications reviewed and adjusted accordingly: Yes Anticipated discharge: Home Within: within 48 hours - Inpatient Certification Based on my medical assessment, after consideration of the patient's comorbidities, presenting symptoms, or acuity I expect that the services needed warrant INPATIENT care.: Yes I certify that my determination is in accordance with my understanding of Medicare's requirements for reasonable and necessary INPATIENT services [42 CFR 412.3e].: Yes Medical Necessity: Significant Comorbidiites Make Outpatient Treatment Too Risky, Need Close Monitoring Due to Risk of Patient Decompensation, Risk of Complication if Not Cared For in Hospital, Risk of Diagnosis Which Will Require Inpatient Eval/Care/Monitoring
[2020-01-10] MEDS: LORAZEPAM INJ 2 MG/1 ML VIAL IV PRN ×2 (17:14→22:11)
[2020-01-10] MEDS ORDERED: AZITHROMYCIN 500 MG in DEXTROSE 5%-WATER 250 ML IV SCH (22:00)
[2020-01-10] MEDS: ATORVASTATIN CALCIUM 40 MG TABLET PO SCH (22:04)
[2020-01-11] MEDS: CARBIDOPA/LEVODOPA 10-100 MG TABLET PO SCH ×3 (06:21→22:21)
[2020-01-11] MEDS: INSULIN LISPRO 100 UNIT/ML 3 ML VIAL SUBCUT SCH ×4 (07:31→22:22)
[2020-01-11] MEDS: FUROSEMIDE INJ/PF 40 MG/4 ML SDV IV SCH ×2 (09:42→22:21)
[2020-01-11] MEDS: ESCITALOPRAM OXALATE 10 MG TABLET PO SCH (09:43)
[2020-01-11] MEDS: DOCUSATE SODIUM 100 MG CAPSULE PO SCH (09:43)
[2020-01-11] MEDS: PREDNISONE 20 MG TABLET PO SCH (09:43)
[2020-01-11] MEDS: PREGABALIN 75 MG CAPSULE PO SCH ×2 (09:43→22:21)
[2020-01-11] MEDS: APIXABAN 5 MG TABLET PO SCH ×2 (09:43→17:15)
[2020-01-11] MEDS: ASPIRIN 81 MG TABLET, CHEWABLE PO SCH (09:43)
[2020-01-11] MEDS: CHOLECALCIFEROL (D3) 1,000 UNIT (25 MCG) TABLET PO SCH (09:43)
[2020-01-11] MEDS: CALCIUM CARBONATE 600 MG/VITAMIN D3 400 UNIT TABLET PO SCH (09:43)
[2020-01-11] MEDS: CARVEDILOL 6.25 MG TABLET PO SCH ×2 (09:43→22:21)
[2020-01-11] MEDS: SACUBITRIL/VALSARTAN 49 MG/51 MG TABLET PO SCH ×2 (09:46→17:15)
[2020-01-11] MEDS: FLUTICASONE/VILANTEROL 100-25 MCG/DOSE IH SCH (09:55)
[2020-01-11] MEDS: LORAZEPAM INJ 2 MG/1 ML VIAL IV PRN ×2 (17:24→23:13)
--- NOTE | 2020-01-11 17:43 | PDOC PROGRESS REPORT ---
Subjective Progress Note for:: 01/11/20 Subjective:: 01/09/2020 Patient fluid intake limited to 1500 cc/day per Dr. Avila. Patient seems to drink fluids nervously all day long per my discussion with him. He states he is always numbness. I discussed the need for him to limit his fluid intake or his Lasix will not be as effective. I recommended that patient see a psychiatrist/counselor after discharge. He states he is still struggling with the of his years ago. He is visibly anxious during our discussion about this. Chest x-ray repeated today shows increasing vascular congestion probably due to patient's excessive fluid intake. Antibiotics will end tomorrow 01/10/2020 Patient doing fine today. Dr. Avila would like him to stay 1 more day for additional diuresis. Blood pressure elevated and I will adjust his medications to be better optimized for his heart failure and BP. 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 He also voices that he is upset that his fluid intake has been limited to 1.5 L/day. He told her reportedly he will resume eating and drinking what ever he wants when he goes home. BNP is notably lower. Plan to discharge tomorrow. 01/11/2020 I attempted discharge patient today but it looks like his oxygen and his home health not been set up. Per nursing, patient will not be able to leave until tomorrow. Patient was not requiring oxygen until today, possibly he has been drinking a lot more liquids which we have not been able to document. His labs, vitals, imaging is all fine. He is ready for discharge when his home health and oxygen has been arranged by case management. Reason For Visit: ACUTE HYPOXEMIC RESPIRATORY FAILURE,COMMUNITY- Physical Exam Vital Signs: Temp Pulse Resp BP Pulse Ox 98.6 F 80 17 138/63 H 95 01/11/20 15:03 01/11/20 15:03 01/11/20 15:03 01/11/20 15:03 01/11/20 15:03 Intake & Output 01/10/20 01/11/20 01/12/20 06:59 06:59 06:59 Intake Total 1590 1213 220 Output Total 6200 4000 Balance -9259 -9603 220 Weight 97.6 kg 97.2 kg General appearance: PRESENT: no acute distress, well-developed, well-nourished Head exam: PRESENT: atraumatic, normocephalic Eye exam: PRESENT: conjunctiva pink Mouth exam: PRESENT: moist Respiratory exam: PRESENT: clear to auscultation jose. ABSENT: rales, rhonchi, wheezes Cardiovascular exam: PRESENT: RRR. ABSENT: diastolic murmur, rubs, systolic murmur GI/Abdominal exam: PRESENT: normal bowel sounds, soft. ABSENT: distended, guarding, mass, organolmegaly, rebound, tenderness Neurological exam: PRESENT: alert, awake, oriented to person, oriented to place, oriented to time, oriented to situation Psychiatric exam: PRESENT: appropriate affect, normal mood Skin exam: PRESENT: dry, intact, warm Results Laboratory Results: 01/08/20 11:50 01/10/20 08:41 01/05/20 01/06/20 01/06/20 11:10 14:30 14:30 Creatine Kinase 197 H CK-MB (CK-2) 11.10 H Troponin I 0.035 0.028 NT-Pro-B Natriuret Pep 6630 H 01/06/20 01/06/20 01/07/20 20:10 20:10 01:50 Creatine Kinase 260 H 187 H CK-MB (CK-2) 13.10 H Troponin I 0.028 NT-Pro-B Natriuret Pep 01/07/20 01/09/20 01/10/20 01:50 09:30 08:41 Creatine Kinase CK-MB (CK-2) 9.47 H Troponin I 0.033 NT-Pro-B Natriuret Pep 3170 H 3060 H Impressions: Venous Doppler Study 01/05/20 00:00 IMPRESSION: Occlusive and nonocclusive deep venous thrombosis identified bilaterally common femoral to distal. This is progressive when compared to prior.. Chest/Abdomen CTA 01/06/20 10:45 IMPRESSION: 1. No evidence of pulmonary embolus. 2. Cardiomegaly, small bilateral effusions and bibasilar consolidation, likely atelectasis although infection not excluded. Additional mild interlobular septal thickening and minimal ground-glass opacities may represent element of mild interstitial edema. 3. Mediastinal and right hilar adenopathy possibly reactive although recommend 3-6 month follow-up to ensure resolution. Lower Extremity Ultrasound 01/07/20 00:00 IMPRESSION: Occluded left superficial femoral artery In the right calf, there is a occlusion of the mid 3rd anterior tibial artery with retrograde flow in the dorsalis pedis artery and distal anterior tibial artery. Remainder of the right lower extremity arterial Doppler is otherwise unremarkable Chest X-Ray 01/09/20 00:00 IMPRESSION: Increasing basilar opacities. Persistent vascular congestion. Assessment and Plan - Diagnosis (1) COPD exacerbation Is this a current diagnosis for this admission?: Yes Plan: Uses 3 L nasal cannula at home at baseline Target 89 to 94% oxygen saturation and COPD patient Avoid nebulizer and BiPAP until we rule out coronavirus Breo and albuterol started 5 days of prednisone steroids Azithromycin 01/06/2020 Breathing seems to be about the same as yesterday intermittently sometimes worse. Patient does note that when he uses his inhalers he does see some imp rovement but this is not particularly long-lasting. Continue inhalers, can start using nebulizer treatments when his coronavirus test is negative 01/07/2020 Breathing is steadily improving, continue inhalers and antibiotics 01/08/2020 Chest still rather tight and having wheezing, start prednisone 40 mg daily for 5 days 01/10/2020 No wheezing on exam anymore, breathing much better. Does not need oxygen at rest per nursing evaluation. Plan to finish steroid course. No need for further antibiotics 01/11/2020 Prescribed course of prednisone to complete 5 days, he is no longer wheezing today (2) Pneumonia Qualifiers: Pneumonia type: due to unspecified organism Laterality: left Lung location: lower lobe of lung Qualified Code(s): J18.9 - Pneumonia, unspecified organism Is this a current diagnosis for this admission?: Yes Plan: Suspect community-acquired versus atypical Seen on chest x-ray Consider CT chest Ceftriaxone/azithromycin Respiratory culture Supplemental oxygen, inhalers, bronchial hygiene as above 01/06/2020 CTPA pending to look for possible organizing pneumonia or lung abscess could be causing persistent infection and respiratory symptoms; I am suspicious that he may have a large burden of clots in his lungs that would be largely responsible for his respiratory symptoms rather than infection 01/07/2020 CTPA showed no PE, small bilateral pleural effusions and bibasilar conso lidation, mild interlobular septal thickening, minimal groundglass opacities consistent with mild interstitial edema, mediastinal and right hilar adenopathy which requires 3-6-month follow-up to ensure resolution Complete 5 days of antibiotics, then stop 01/08/2020 2 more days of antibiotics then stop to complete 5 days 01/10/2020 Antibiotics complete, can stop these today 01/10/2022 Antibiotics completed (3) CAD (coronary artery disease) Is this a current diagnosis for this admission?: Yes (4) HTN (hypertension) Is this a current diagnosis for this admission?: Yes (5) HLD (hyperlipidemia) Is this a current diagnosis for this admission?: Yes (6) T2DM (type 2 diabetes mellitus) Is this a current diagnosis for this admission?: Yes (7) History of stroke Is this a current diagnosis for this admission?: Yes (8) Suspected 2019 novel coronavirus infection Is this a current diagnosis for this admission?: Yes (9) Acute on chronic respiratory failure with hypoxemia Is this a current diagnosis for this admission?: Yes (10) COPD (chronic obstructive pulmonary disease) Is this a current diagnosis for this admission?: Yes (11) DVT (deep venous thrombosis) Is this a current diagnosis for this admission?: Yes (12) Acute combined systolic (congestive) and diastolic (congestive) heart failure Is this a current diagnosis for this admission?: Yes (13) Neuropathic pain Is this a current diagnosis for this admission?: Yes (14) Depression Qualifiers: Depression Type: major depressive disorder Major depression recurrence: unspecified whether recurrent Active/Remission status: currently active Major depression episode severity: moderate Qualified Code(s): F32.1 - Major depressive disorder, single episode, moderate Is this a current diagnosis for this admission?: Yes (15) Foot ulcer, right Qualifiers: Non-pressure ulcer stage: with fat layer exposed Qualified Code(s): L97.512 - Non-pressure chronic ulcer of other part of right foot with fat layer exposed Is this a current diagnosis for this admission?: Yes Plan: Per patient, has had many recurrent ulcers on bilateral ankles throughout the past several years, healing and then recurring over the course of about 6 months to a year Possible pyoderma gangrenosum Per patient, has seen dermatology multiple times in the past and had biopsies that he does not remember the results of these tests Needs dermatology follow-up outpatient Wound dressings here in wound care clinic referral at discharge needed - Time Time Spent with patient: 15-24 minutes Medications reviewed and adjusted accordingly: Yes Anticipated discharge: Home with Homehealth Within: within 48 hours - Inpatient Certification Based on my medical assessment, after consideration of the patient's comorbidities, presenting symptoms, or acuity I expect that the services needed warrant INPATIENT care.: Yes I certify that my determination is in accordance with my understanding of Medicare's requirements for reasonable and necessary INPATIENT services [42 CFR 412.3e].: Yes Medical Necessity: Significant Comorbidiites Make Outpatient Treatment Too Risky, Need Close Monitoring Due to Risk of Patient Decompensation, Risk of Complication if Not Cared For in Hospital, Risk of Diagnosis Which Will Require Inpatient Eval/Care/Monitoring
[2020-01-11] MEDS: ATORVASTATIN CALCIUM 40 MG TABLET PO SCH (22:21)
[2020-01-12] MEDS: CARBIDOPA/LEVODOPA 10-100 MG TABLET PO SCH (05:08)
[2020-01-12] MEDS: INSULIN LISPRO 100 UNIT/ML 3 ML VIAL SUBCUT SCH ×2 (09:28→12:04)
[2020-01-12] MEDS: FUROSEMIDE INJ/PF 40 MG/4 ML SDV IV SCH (09:29)
[2020-01-12] MEDS: ASPIRIN 81 MG TABLET, CHEWABLE PO SCH (09:29)
[2020-01-12] MEDS: CARVEDILOL 6.25 MG TABLET PO SCH (09:29)
[2020-01-12] MEDS: CALCIUM CARBONATE 600 MG/VITAMIN D3 400 UNIT TABLET PO SCH (09:29)
[2020-01-12] MEDS: APIXABAN 5 MG TABLET PO SCH (09:29)
[2020-01-12] MEDS: ESCITALOPRAM OXALATE 10 MG TABLET PO SCH (09:29)
[2020-01-12] MEDS: PREDNISONE 20 MG TABLET PO SCH (09:29)
[2020-01-12] MEDS: CHOLECALCIFEROL (D3) 1,000 UNIT (25 MCG) TABLET PO SCH (09:29)
[2020-01-12] MEDS: DOCUSATE SODIUM 100 MG CAPSULE PO SCH (09:29)
[2020-01-12] MEDS: PREGABALIN 75 MG CAPSULE PO SCH (09:29)
[2020-01-12] MEDS: FLUTICASONE/VILANTEROL 100-25 MCG/DOSE IH SCH (09:30)
[2020-01-12] MEDS: SACUBITRIL/VALSARTAN 49 MG/51 MG TABLET PO SCH (09:31)
[2020-01-12 10:55] LABS: BLOOD UREA NITROGEN 31 mg/dL (7-20); CALCIUM 8.8 mg/dL (8.4-10.2); CARBON DIOXIDE 36 mmol/L (22-30); CHLORIDE 96 mmol/L (98-107); GLUCOSE 183 mg/dL (75-110)
[2020-01-12 11:06] LABS: ANION GAP 4 (5-19)
[2020-01-12 11:08] VITALS: BP 155/80
--- NOTE | 2020-01-12 18:17 | PDOC DISCHARGE SUMMARY ---
Impression - Admit/DC Date/PCP Admission Date/Primary Care Provider: 01/05/20 13:14 Discharge Date: 01/12/20 - Discharge Diagnosis (1) CAD (coronary artery disease) Is this a current diagnosis for this admission?: Yes (2) COPD exacerbation Is this a current diagnosis for this admission?: Yes (3) HLD (hyperlipidemia) Is this a current diagnosis for this admission?: Yes (4) HTN (hypertension) Is this a current diagnosis for this admission?: Yes (5) Pneumonia Is this a current diagnosis for this admission?: Yes (6) Suspected 2019 novel coronavirus infection Is this a current diagnosis for this admission?: Yes (7) T2DM (type 2 diabetes mellitus) Is this a current diagnosis for this admission?: Yes - Assessment Summary: Patient was admitted to the hospital on January 04 with 2 weeks of progressive shortness of breath consistent with previous COPD exacerbations.. Patient also states that he is been out of his medication for at least 3 weeks. X-ray on admission showed patchy left basilar opacities and a small left effusion suggestive of pneumonia as well as mild central vascular congestion without overt edema. Patient was admitted for suspected COPD exacerbation versus CHF exacerbation. Coronavirus was also ruled out. Patient was seen by cardiology, patient underwent a stenting of at least the LAD, which was demonstrated by the CT scan. Patient's initial troponin was detectable but not diagnostic for injury. Cardiology's recommendation was to add a beta-magdalena once he is diuresed and more stable and to continue trending the troponins. Patient had a venous Doppler study performed of the left lower extremity which showed occlusive and nonocclusive DVT bilaterally in the common femoral. This was progressive when compared to prior study dated August 2019. Second venous Doppler was performed 2 days later on 06 January, showed a occluded left superficial femoral artery, and in the right calf there was an occlusion of the mid third anterior tibial artery with retrograde flow into the dorsalis pedis artery and distal anterior tibial artery. Patient's most recent chest x-ray on showed increasing basilar opacities persistent vascular congestion, when compared to study dated 01/05. On 01/10 patient was ready to be discharged but his oxygen and home health had not been set up yet. Patient did make a statement to the physician that he was upset that his fluid intake had been limited and that when he went home he would "resume eating and drinking what ever he wants". Patient was discharged on 01/12/2020. She was told to follow-up with cardiology on January 18. Patient did have oxygen set up at home as well as home health. At the time of discharge, she is electrolytes are stable, recent blood glucose was 220, hemoglobin A1c on admission was 7. On admission BNP was 6630, the time of discharge it is gone down to 3060. Final diagnoses COPD exacerbation, pneumonia, Timothy artery disease, hypertension, hyperlipidemia, diabetes, DVT, systolic and diastolic heart failure, patient noncompliance - Additional Information Resuscitation Status: Do Not Resuscitate Discharge Diet: Cardiac, Diabetic Discharge Activity: Activity As Tolerated, Balance Activity w/Rest Referrals: CLIFF ANDERSON MD [ACTIVE PROVISIONAL STAFF] - 01/19/20 10:30 am (needs referral ) Prescriptions: Albuterol Sulfate [Albuterol Sulfate Hfa] 8.5 gm IH Q6HP PRN 30 Days #2 hfa.aer.ad PRN Reason: Aspirin [Aspirin 81 mg Chewable Tablet] 81 mg PO DAILY #30 tab.chew Fluticasone/Vilanterol [Breo 100-25 Mcg Ellipta 14 Dose/Dpi] 1 inh IH DAILY #1 inhaler Calcium Carbonate/Vitamin D3 [Caltrate 600-Vit D3 400 Tablet] 1 tab PO DAILY 1 Days #30 tablet Carvedilol [Coreg 6.25 mg Tablet] 6.25 mg PO Q12 #60 tablet Prednisone [Deltasone 20 mg Tablet] 40 mg PO DAILY 2 Days #4 tablet Apixaban [Eliquis 5 mg Tablet] 10 mg PO BID #18 tablet Apixaban [Eliquis 5 mg Tablet] 5 mg PO BID #60 tablet Sacubitril/Valsartan [Entresto 49 mg/51 mg Tablet] 1 tab PO BID #60 tablet Furosemide [Lasix 40 mg Tablet] 40 mg PO BID #30 tablet Escitalopram Oxalate [Lexapro 10 mg Tablet] 10 mg PO DAILY #30 tablet Atorvastatin Calcium [Lipitor 40 mg Tablet] 40 mg PO QHS #30 tablet Pregabalin [Lyrica 75 mg Capsule] 75 mg PO Q12 #60 capsule Albuterol Sulfate [Proair HFA Inhalation Aerosol 8.5 gm MDI] 2 puff IH Q4HP PRN #1 hfa.aer.ad PRN Reason: Carbidopa/Levodopa [Sinemet 10-100 mg Tablet] 1 tab PO Q8 #90 tablet Home Medications: Albuterol Sulfate [Proair HFA Inhalation Aerosol 8.5 gm MDI] 2 puff IH Q4HP PRN #1 hfa.aer.ad 01/11/20 Apixaban [Eliquis 5 mg Tablet] 5 mg PO BID #60 tablet 01/11/20 Apixaban [Eliquis 5 mg Tablet] 10 mg PO BID #18 tablet 01/11/20 Aspirin [Aspirin 81 mg Chewable Tablet] 81 mg PO DAILY #30 tab.chew 01/11/20 Atorvastatin Calcium [Lipitor 40 mg Tablet] 40 mg PO QHS #30 tablet 01/11/20 Calcium Carbonate/Vitamin D3 [Caltrate 600-Vit D3 400 Tablet] 1 tab PO DAILY 1 Days #30 tablet 01/11/20 Carbidopa/Levodopa [Sinemet 10-100 mg Tablet] 1 tab PO Q8 #90 tablet 01/11/20 Carvedilol [Coreg 6.25 mg Tablet] 6.25 mg PO Q12 #60 tablet 01/11/20 Escitalopram Oxalate [Lexapro 10 mg Tablet] 10 mg PO DAILY #30 tablet 01/11/20 Fluticasone/Vilanterol [Breo 100-25 Mcg Ellipta 14 Dose/Dpi] 1 inh IH DAILY #1 inhaler 01/11/20 Furosemide [Lasix 40 mg Tablet] 40 mg PO BID #30 tablet 01/11/20 Prednisone [Deltasone 20 mg Tablet] 40 mg PO DAILY 2 Days #4 tablet 01/11/20 Pregabalin [Lyrica 75 mg Capsule] 75 mg PO Q12 #60 capsule 01/11/20 Sacubitril/Valsartan [Entresto 49 mg/51 mg Tablet] 1 tab PO BID #60 tablet 01/11/20 Albuterol Sulfate [Albuterol Sulfate Hfa] 8.5 gm IH Q6HP PRN 30 Days #2 hfa.aer.ad 01/12/20 History of Present Illiness History of Present Illness: CHERELLE VALDIVIA is a 59 year old male Physical Exam Vital Signs: Temp Pulse Resp BP Pulse Ox 98.1 F 78 18 155/80 H 96 01/12/20 11:07 01/12/20 11:07 01/12/20 11:07 01/12/20 11:07 01/12/20 11:07 Intake & Output 01/11/20 01/12/20 01/13/20 06:59 06:59 06:59 Intake Total 1213 1590 Output Total 4526 3590 Balance -6804 -339 Weight 97.2 kg 97.3 kg Results Laboratory Results: WBC 6.6 10^3/uL (4.0-10.5) 01/08/20 11:50 RBC 3.99 10^6/uL (4.35-5.55) L 01/08/20 11:50 Hgb 12.1 g/dL (13.5-17.0) L 01/08/20 11:50 Hct 34.9 % (37.9-51.0) L 01/08/20 11:50 MCV 88 fl (80-97) 01/08/20 11:50 MCH 30.4 pg (27.0-33.4) 01/08/20 11:50 MCHC 34.7 g/dL (32.0-36.0) 01/08/20 11:50 RDW 13.6 % (11.5-14.0) 01/08/20 11:50 Plt Count 321 10^3/uL (150-450) 01/08/20 11:50 Lymph % (Auto) 13.9 % (13-45) 01/08/20 11:50 [place] % (Auto) 6.8 % (3-13) 01/08/20 11:50 Eos % (Auto) 5.7 % (0-6) 01/08/20 11:50 Baso % (Auto) 0.5 % (0-2) 01/08/20 11:50 Absolute Neuts (auto) 4.9 10^3/uL (1.7-8.2) 01/08/20 11:50 Absolute Lymphs (auto) 0.9 10^3/uL (0.5-4.7) 01/08/20 11:50 Absolute Monos (auto) 0.4 10^3/uL (0.1-1.4) 01/08/20 11:50 Absolute Eos (auto) 0.4 10^3/uL (0.0-0.6) 01/08/20 11:50 Absolute Basos (auto) 0.0 10^3/uL (0.0-0.2) 01/08/20 11:50 Seg Neutrophils % 73.1 % (42-78) 01/08/20 11:50 VBG pH 7.27 (7.30-7.42) L 01/05/20 11:10 VBG pCO2 62.6 mmHg (35-63) 01/05/20 11:10 VBG HCO3 28.1 mmol/L (20-32) 01/05/20 11:10 VBG Base Excess -0.8 mmol/L 01/05/20 11:10 Sodium 135.6 mmol/L (137-145) L 01/12/20 10:00 Potassium 4.0 mmol/L (3.6-5.0) 01/12/20 10:00 Chloride 96 mmol/L (98-107) L 01/12/20 10:00 Carbon Dioxide 36 mmol/L (22-30) H 01/12/20 10:00 Anion Gap 4 (5-19) L 01/12/20 10:00 BUN 31 mg/dL (7-20) H 01/12/20 10:00 Creatinine 0.99 mg/dL (0.52-1.25) 01/12/20 10:00 Est GFR ( Amer) > 60 (>60) 01/12/20 10:00 Est GFR (MDRD) Non-Af > 60 (>60) 01/12/20 10:00 Glucose 183 mg/dL (75-110) H 01/12/20 10:00 POC Glucose 220 mg/dL (70-110) H 01/12/20 08:46 Hemoglobin A1c % 7.0 % (4.7-6.0) H 01/06/20 06:50 Lactic Acid 1.0 mmol/L (0.7-2.1) 01/05/20 13:27 Calcium 8.8 mg/dL (8.4-10.2) 01/12/20 10:00 Phosphorus 5.0 mg/dL (2.5-4.5) H 01/06/20 06:50 Magnesium 1.9 mg/dL (1.6-2.3) 01/06/20 06:50 Total Bilirubin 0.6 mg/dL (0.2-1.3) 01/05/20 11:10 Direct Bilirubin 0.0 mg/dL (0.0-0.4) 01/05/20 11:10 Neonat Total Bilirubin Not Reportable 01/05/20 11:10 Neonat Direct Bilirubin Not Reportable 01/05/20 11:10 Neonat Indirect Bili Not Reportable 01/05/20 11:10 AST 23 U/L (17-59) 01/05/20 11:10 ALT 21 U/L (<50) 01/05/20 11:10 Alkaline Phosphatase 141 U/L (38-126) H 01/05/20 11:10 Creatine Kinase 187 U/L (55-170) H 01/07/20 01:50 CK-MB (CK-2) 9.47 ng/mL (<4.55) H 01/07/20 01:50 Troponin I 0.033 ng/mL 01/07/20 01:50 NT-Pro-B Natriuret Pep 3060 pg/mL (<125) H 01/10/20 08:41 Total Protein 7.0 g/dL (6.3-8.2) 01/05/20 11:10 Albumin 3.3 g/dL (3.5-5.0) L 01/05/20 11:10 Triglycerides 122 mg/dL (<150) 01/06/20 06:50 Cholesterol 229.20 mg/dL (0-200) H 01/06/20 06:50 LDL Cholesterol Direct 177 mg/dL (<100) H 01/06/20 06:50 VLDL Cholesterol 24.0 mg/dL (10-31) 01/06/20 06:50 HDL Cholesterol 43 mg/dL (>40) 01/06/20 06:50 Vitamin D 25-Hydroxy < 12.8 ng/mL (14.7-68.3) L 01/07/20 01:50 TSH 6.35 uIU/mL (0.47-4.68) H 01/06/20 06:50 PTH Intact 153.9 pg/mL (10.0-65.0) H 01/07/20 01:50 Urine Color YELLOW 01/05/20 12:55 Urine Appearance SLIGHTLY-CLOUDY 01/05/20 12:55 Urine pH 5.0 (5.0-9.0) 01/05/20 12:55 Ur Specific [place] 1.022 01/05/20 12:55 Urine Protein >=500 mg/dL (NEGATIVE) H 01/05/20 12:55 Urine Glucose (UA) 50 mg/dL (NEGATIVE) H 01/05/20 12:55 Urine Ketones NEGATIVE mg/dL (NEGATIVE) 01/05/20 12:55 Urine Blood MODERATE (NEGATIVE) H 01/05/20 12:55 Urine Nitrite NEGATIVE (NEGATIVE) 01/05/20 12:55 Urine Bilirubin NEGATIVE (NEGATIVE) 01/05/20 12:55 Urine Urobilinogen NEGATIVE mg/dL (<2.0) 01/05/20 12:55 Ur Leukocyte Esterase NEGATIVE (NEGATIVE) 01/05/20 12:55 Urine WBC (Auto) 4 /HPF 01/05/20 12:55 Urine RBC (Auto) 2 /HPF 01/05/20 12:55 U Hyaline Cast (Auto) 8 /LPF 01/05/20 12:55 Urine Bacteria (Auto) TRACE /HPF 01/05/20 12:55 Squamous Epi Cells Auto <1 /HPF 01/05/20 12:55 Urine Mucus (Auto) RARE /LPF 01/05/20 12:55 Urine Ascorbic Acid NEGATIVE (NEGATIVE) 01/05/20 12:55 Urine Opiates Screen NEGATIVE 01/05/20 12:55 Urine Methadone Screen NEGATIVE 01/05/20 12:55 Ur Barbiturates Screen NEGATIVE 01/05/20 12:55 Ur Phencyclidine Scrn NEGATIVE 01/05/20 12:55 Ur Amphetamines Screen NEGATIVE 01/05/20 12:55 U Benzodiazepines Scrn NEGATIVE 01/05/20 12:55 Urine Cocaine Screen NEGATIVE 01/05/20 12:55 U Marijuana (THC) Screen NEGATIVE 01/05/20 12:55 COVID-19 Source NASOPHARYNGEAL 01/05/20 12:55 COVID-19 ([place]) NOT DETECTED 01/05/20 12:55 Influenza A (Rapid) NEGATIVE (NEGATIVE) 01/05/20 15:00 Influenza B (Rapid) NEGATIVE (NEGATIVE) 01/05/20 15:00 01/05/20 01/06/20 01/06/20 11:10 14:30 20:10 CK-MB (CK-2) 11.10 H 13.10 H Troponin I 0.035 0.028 0.028 NT-Pro-B Natriuret Pep 6630 H 01/07/20 01/09/20 01/10/20 01:50 09:30 08:41 CK-MB (CK-2) 9.47 H Troponin I 0.033 NT-Pro-B Natriuret Pep 3170 H 3060 H Impressions: Venous Doppler Study 01/05/20 00:00 IMPRESSION: Occlusive and nonocclusive deep venous thrombosis identified bilaterally common femoral to distal. This is progressive when compared to prior.. Chest X-Ray 01/05/20 08:48 IMPRESSION: Patchy left basilar opacities and small left effusion suggestive of pneumonia. Mild central vascular congestion without overt edema. Chest X-Ray 01/06/20 00:00 IMPRESSION: Mild bibasilar opacities and small effusions, left greater than right. Chest/Abdomen CTA 01/06/20 10:45 IMPRESSION: 1. No evidence of pulmonary embolus. 2. Cardiomegaly, small bilateral effusions and bibasilar consolidation, likely atelectasis although infection not excluded. Additional mild interlobular septal thickening and minimal ground-glass opacities may represent element of mild interstitial edema. 3. Mediastinal and right hilar adenopathy possibly reactive although recommend 3-6 month follow-up to ensure resolution. Lower Extremity Ultrasound 01/07/20 00:00 IMPRESSION: Occluded left superficial femoral artery In the right calf, there is a occlusion of the mid 3rd anterior tibial artery with retrograde flow in the dorsalis pedis artery and distal anterior tibial artery. Remainder of the right lower extremity arterial Doppler is otherwise unremarkable Chest X-Ray 01/09/20 00:00 IMPRESSION: Increasing basilar opacities. Persistent vascular congestion. Stroke Is this a Stroke Patient?: No Acute Heart Failure - Is this a Heart Failure Patient?: Yes Documentation of LVEF assessment?: Yes LVEF < 40%?: No- if no continue to question #3 3. Anticoagulant therapy for permanect/persistent/paraoxysmal Afib or Aflutter: N/A Follow-up Appointment scheduled within 7 days?: Yes
[2020-01-16] MEDS ORDERED: APIXABAN 5 MG TABLET PO SCH (18:00)
== END 2020-01-12 14:42 | disposition home health service (06) | DRG 291 ==
LOC: ER 08:46 → EH 13:14 → 5 15:30 → 3W 01-08 12:45
PROVIDERS: ADMIT Internal Medicine; ATTEND Physician Assistant
PROC: 5A09357 Assistance with Respiratory Ventilation, Less than 24 Consecutive Hours, Continuous Positive Airway Pressure (ICD-10-PCS; principal; 2020-01-05)
DX: I11.0 Hypertensive heart disease with heart failure (principal); J96.21 Acute and chronic respiratory failure with hypoxia; J18.9 Pneumonia, unspecified organism; J44.1 Chronic obstructive pulmonary disease with (acute) exacerbation; J44.0 Chronic obstructive pulmonary disease with (acute) lower respiratory infection; I82.413 Acute embolism and thrombosis of femoral vein, bilateral; I82.4Z3 Acute embolism and thrombosis of unspecified deep veins of distal lower extremity, bilateral; F32.1 Major depressive disorder, single episode, moderate; I50.43 Acute on chronic combined systolic (congestive) and diastolic (congestive) heart failure; I25.10 Atherosclerotic heart disease of native coronary artery without angina pectoris; E78.5 Hyperlipidemia, unspecified; F17.210 Nicotine dependence, cigarettes, uncomplicated; I45.10 Unspecified right bundle-branch block; I25.5 Ischemic cardiomyopathy; E11.40 Type 2 diabetes mellitus with diabetic neuropathy, unspecified; L97.512 Non-pressure chronic ulcer of other part of right foot with fat layer exposed; E11.621 Type 2 diabetes mellitus with foot ulcer; I25.2 Old myocardial infarction; Z99.81 Dependence on supplemental oxygen; Z66 Do not resuscitate; Z03.818 Encounter for observation for suspected exposure to other biological agents ruled out; Z91.14 Patient's other noncompliance with medication regimen; Z86.718 Personal history of other venous thrombosis and embolism; Z79.899 Other long term (current) drug therapy; Z79.82 Long term (current) use of aspirin; Z86.73 Personal history of transient ischemic attack (TIA), and cerebral infarction without residual deficits; Z95.5 Presence of coronary angioplasty implant and graft
CPT/HCPCS: 36415; 71045; 71046; 71275; 80048; 80053; 80061; 80307; 81001; 82306; 82550; 82553; 82803; 82962; 83036; 83605; 83735; 83880; 83970; 84100; 84443; 84484; 85025; 87040; 87635; 87804; 93005; 93010; 93306; 93925; 93970; 94660; 96365; 99291; J0456; J0696; J1650; J1815; J1940; J2060; J2405; J3490; J7060; J7512; S0119

== ENCOUNTER 2020-01-26 12:07 | Emergency (ER) | payer MEDICAID ==
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
--- NOTE | 2020-01-26 12:48 | RADIOLOGY REPORT (SQ) ---
EXAM DESCRIPTION: CHEST SINGLE VIEW IMAGES COMPLETED DATE/TIME: 01/26/2020 12:38 pm REASON FOR STUDY: SOB COMPARISON: 01/09/2020 EXAM PARAMETERS: NUMBER OF VIEWS: One view. TECHNIQUE: Single frontal radiographic view of the chest acquired. RADIATION DOSE: NA LIMITATIONS: None. FINDINGS: LUNGS AND PLEURA: Persistent left pleural effusion. No consolidation. No pneumothorax. MEDIASTINUM AND HILAR STRUCTURES: No masses. Contour normal. HEART AND VASCULAR STRUCTURES: Heart size is stable. No failure. BONES: No acute findings. HARDWARE: None in the chest. OTHER: No other significant finding. IMPRESSION: Persistent small left pleural effusion. No consolidation or failure. TECHNICAL DOCUMENTATION: JOB ID: [id number] 2010 [employer]- All Rights Reserved Reading location - IP/workstation name: [email or web address]
[2020-01-26] MEDS ORDERED: CARVEDILOL 6.25 MG TABLET PO ONE (12:53)
[2020-01-26 13:05] LABS: ABSOLUTE BASOPHILS # (AUTO) 0.1 10^3/uL (0.0-0.2); ABSOLUTE EOSINOPHILS # (AUTO) 0.4 10^3/uL (0.0-0.6); ABSOLUTE LYMPHOCYTES (AUTO) 1.3 10^3/uL (0.5-4.7); ABSOLUTE MONOCYTES (AUTO) 0.5 10^3/uL (0.1-1.4); ABSOLUTE NEUT (AUTO) 5.9 10^3/uL (1.7-8.2); BASOPHILS % (AUTO) 1.2 % (0-2); EOSINOPHILS % (AUTO) 5.3 % (0-6); HEMOGLOBIN 12.7 g/dL (13.5-17.0); LYMPHOCYTES % (AUTO) 15.3 % (13-45); MEAN CORPUSCULAR HEMOGLOBIN 30.1 pg (27.0-33.4); MEAN CORPUSCULAR HGB CONC 34.3 g/dL (32.0-36.0); MEAN CORPUSCULAR VOLUME 88 fl (80-97); MONOCYTES % (AUTO) 6.5 % (3-13); PLATELET COUNT 265 10^3/uL (150-450); RED BLOOD COUNT 4.21 10^6/uL (4.35-5.55); SEGMENTED NEUTROPHILS % (AUTO) 71.7 % (42-78); TOTAL CELLS COUNTED % (AUTO) 100 %; WHITE BLOOD COUNT 8.2 10^3/uL (4.0-10.5)
[2020-01-26 13:13] LABS: ALBUMIN 3.1 g/dL (3.5-5.0); ALKALINE PHOSPHATASE 113 U/L (38-126); ASPARTATE AMINO TRANSFERASE 23 U/L (17-59); BILIRUBIN,TOTAL 0.4 mg/dL (0.2-1.3); BLOOD UREA NITROGEN 26 mg/dL (7-20); CALCIUM 8.5 mg/dL (8.4-10.2); CHLORIDE 106 mmol/L (98-107); CREATINE KINASE 238 U/L (55-170); GLUCOSE 155 mg/dL (75-110); POTASSIUM 4.5 mmol/L (3.6-5.0); TOTAL PROTEIN 6.3 g/dL (6.3-8.2)
[2020-01-26 13:19] LABS: CARBON DIOXIDE 30 mmol/L (22-30)
[2020-01-26 13:22] LABS: ANION GAP 3 (5-19)
[2020-01-26 13:24] LABS: CREATINE KINASE MB 18.5 ng/mL (<4.55)
[2020-01-26 13:27] LABS: TROPONIN I 0.037 ng/mL
[2020-01-26 18:23] VITALS: BP 162/87
--- NOTE | 2020-01-27 08:34 | EKG REPORT ---
SEVERITY:- ABNORMAL ECG - SINUS RHYTHM FIRST DEGREE AV BLOCK RBBB AND LAFB CONSIDER ANTEROSEPTAL INFARCT : Confirmed by: Aakash Smyth 27-Jan-2020 08:33:06
== END 2020-01-26 18:29 | disposition home or self-care (01) ==
LOC: ER 12:07
DX: J44.1 Chronic obstructive pulmonary disease with (acute) exacerbation (principal); Z60.9 Problem related to social environment, unspecified; I10 Essential (primary) hypertension; R06.02 Shortness of breath; Z99.81 Dependence on supplemental oxygen; I25.10 Atherosclerotic heart disease of native coronary artery without angina pectoris; I25.2 Old myocardial infarction; E11.9 Type 2 diabetes mellitus without complications
CPT/HCPCS: 93005; 99285; 36415; 82553; 82550; 85025; 80053; 84484; 83880; 71045; 93010; J3490

== ENCOUNTER 2020-01-30 07:46 | Inpatient (IN) | payer MEDICAID ==
[2020-01-30] MEDS ORDERED: ALBUTEROL SULFATE 0.083% NEB 2.5 MG/3 ML AMPUL NEB ONE (08:25)
[2020-01-30 08:34] LABS: ABSOLUTE BASOPHILS # (AUTO) 0.1 10^3/uL (0.0-0.2); ABSOLUTE EOSINOPHILS # (AUTO) 0.4 10^3/uL (0.0-0.6); ABSOLUTE LYMPHOCYTES (AUTO) 1.1 10^3/uL (0.5-4.7); ABSOLUTE MONOCYTES (AUTO) 0.4 10^3/uL (0.1-1.4); ABSOLUTE NEUT (AUTO) 6.9 10^3/uL (1.7-8.2); BASOPHILS % (AUTO) 0.9 % (0-2); EOSINOPHILS % (AUTO) 4.5 % (0-6); HEMATOCRIT 37.2 % (37.9-51.0); HEMOGLOBIN 12.8 g/dL (13.5-17.0); LYMPHOCYTES % (AUTO) 12.5 % (13-45); MEAN CORPUSCULAR HEMOGLOBIN 31.3 pg (27.0-33.4); MEAN CORPUSCULAR HGB CONC 34.5 g/dL (32.0-36.0); MEAN CORPUSCULAR VOLUME 91 fl (80-97); PLATELET COUNT 259 10^3/uL (150-450); RED CELL DISTRIBUTION WIDTH 14.4 % (11.5-14.0); SEGMENTED NEUTROPHILS % (AUTO) 78.1 % (42-78); TOTAL CELLS COUNTED % (AUTO) 100 %; WHITE BLOOD COUNT 8.8 10^3/uL (4.0-10.5)
--- NOTE | 2020-01-30 08:54 | ER Document Report ---
Entered by MOON MEMBRENO SCRIBE 01/30/20 0803 Acting as scribe for:JOHN ALEJANDRE MD ED Respiratory Problem - General Chief Complaint: Shortness Of Breath Stated Complaint: DIFFICULTY BREATHING Time Seen by Provider: 01/30/20 08:02 Mode of Arrival: Medic Information source: Patient, Emergency Med Personnel, [facility] Records Notes: This 59 year old male patient presents to the emergency department today with complaints of shortness of breath with an associated cough which started yesterday per history. Patient was admitted to this facility from 01/05/20-01/12/20 for respiratory failure and he was negative for COVID during this visit. Patient was seen again here at this facility four days ago (01/26/20) for shortness of breath and was able to be discharged home after several breathing treatments. Patient states that for the last several weeks he has been short of breath when waking up but "this is different". Pre-hospital interventions: 125 mg Solu-Medrol, 2 g of magnesium, multiple breathing treatments. TRAVEL OUTSIDE OF THE [place] IN LAST 30 DAYS: No - Related Data Allergies/Adverse Reactions: No Known Allergies Allergy (Verified 01/26/20 12:30) Home Medications: Patient unable to recall home medications. States "the ones you just prescribed me last week" Past Medical History - General Information source: Patient - Social History Smoking Status: Current Every Day Smoker Cigarette use (# per day): Yes Frequency of alcohol use: None Drug Abuse: None Lives with: Family Family History: None, CAD, CVA, Hypertension, Malignancy Patient has homicidal ideation: No - Past Medical History Cardiac Medical History: Reports: Hx Congestive Heart Failure, Hx Coronary Artery Disease, Hx Heart Attack, Hx Hypercholesterolemia, Hx Hypertension Pulmonary Medical History: Reports: Hx COPD, Hx Pneumonia, Hx Respiratory Failure Endocrine Medical History: Reports: Hx Diabetes Mellitus Type 2 - "Diet- controlled" Psychiatric Medical History: Reports: Hx Depression Past Surgical History: Reports: Hx Cardiac Catheterization, Hx Coronary Stent, Hx Orthopedic Surgery - Left AKA Review of Systems - Review of Systems Constitutional: denies: Fever EENT: No symptoms reported Cardiovascular: No symptoms reported Respiratory: See HPI, Cough, Short of breath Gastrointestinal: No symptoms reported Genitourinary: No symptoms reported Male Genitourinary: No symptoms reported Musculoskeletal: No symptoms reported Skin: No symptoms reported Hematologic/Lymphatic: No symptoms reported Neurological/Psychological: No symptoms reported -: Yes All other systems reviewed and negative Physical Exam - Vital signs Vitals: Pulse Ox 96 01/30/20 07:51 - Notes Notes: Physical Exam: General: Alert, appears short of breath. HEENT: Normocephalic. Atraumatic. PERRL. Extraocular movements intact. Oropharynx clear. Neck: Supple. Non-tender. Respiratory: Mild respiratory distress, on BiPAP. Faint wheezing. Rhonchi and Rales with forced cough. Cardiovascular: Regular rate and rhythm. Abdominal: Normal Inspection. Non-tender. No distension. Normal Bowel Sounds. Back: No gross abnormalities. Upper extremities: Normal inspection. Normal ROM. Lower extremities: Left AKA Neurological: Normal cognition. AAOx4. Normal speech. Psychological: Normal affect. Normal Mood. Skin: Warm. Dry. Normal color. Course - Re-evaluation Re-evalutation: 01/30/20 11:22 The patient was sleeping on BiPAP, so I had the nurse take him off the BiPAP and put him on 3 L nasal cannula. He was left on this regimen for about 30 minutes and began to complain of shortness of breath getting worse so the BiPAP was put back on and it did make him more comfortable. He does report that he did not take any of his regular morning medications today. - Vital Signs Vital signs: Temp Pulse Resp BP Pulse Ox 98 F 76 25 H 178/83 H 94 01/30/20 07:57 01/30/20 08:03 01/30/20 11:27 01/30/20 11:01 01/30/20 11:27 - Laboratory Result Diagrams: 01/30/20 08:20 01/30/20 08:50 Laboratory results interpreted by me: 01/30/20 01/30/20 01/30/20 08:20 08:50 08:50 RBC 4.10 L Hgb 12.8 L Hct 37.2 L RDW 14.4 H Lymph % (Auto) 12.5 L Seg Neutrophils % 78.1 H Sodium 136.9 L Potassium 5.5 H Anion Gap 1 L BUN 31 H Glucose 234 H Alkaline Phosphatase 146 H CK-MB (CK-2) 13.50 H NT-Pro-B Natriuret Pep 2560 H Total Protein 6.1 L Albumin 3.0 L Urine Protein Urine Glucose (UA) Urine Blood 01/30/20 10:29 RBC Hgb Hct RDW Lymph % (Auto) Seg Neutrophils % Sodium Potassium Anion Gap BUN Glucose Alkaline Phosphatase CK-MB (CK-2) NT-Pro-B Natriuret Pep Total Protein Albumin Urine Protein >=500 H Urine Glucose (UA) 150 H Urine Blood SMALL H - Diagnostic Test Radiology reviewed: Image reviewed, Reports reviewed - Chest x-ray shows persistent blunting of the left lateral costophrenic sulcus, similar compared to 01/26/2020 from trace residual pleural fluid and pleural thickening. Mild pulmonary vascular prominence without pulmonary edema. - EKG Interpretation by Oh EKG shows normal: Sinus rhythm, [place], Intervals, ST-T Waves. abnormal: QRS Complexes - Possibly old anterior infarct Rate: Normal - 75 [place]/QRS: RBBB Heart block present: 1st Degree When compared to previous EKG there are: No significant change - Consults Dr. Rojas Time consulted: 11:31 Consulted provider: will come to ER Critical Care Note - Critical Care Note Total time excluding time spent on procedures (mins): 45 Discharge - Discharge Clinical Impression: COPD exacerbation, Pulmonary vascular congestion HTN (hypertension) Qualifiers: Hypertension type: essential hypertension Qualified Code(s): I10 - Essential (primary) hypertension Dyspnea Qualifiers: Dyspnea type: shortness of breath Qualified Code(s): R06.02 - Shortness of breath Condition: Fair Disposition: ADMITTED INPATIENT Admitting Provider: Bob (Hospitalist) Unit Admitted: Telemetry I personally performed the services described in the documentation, reviewed and edited the documentation which was dictated to the scribe in my presence, and it accurately records my words and actions.
--- NOTE | 2020-01-30 08:59 | RADIOLOGY REPORT (SQ) ---
EXAM DESCRIPTION: CHEST SINGLE VIEW IMAGES COMPLETED DATE/TIME: 01/30/2020 8:44 am REASON FOR STUDY: SOB COMPARISON: CT chest 01/06/2020, 08/17/2019 Two-view chest 01/09/2020, 01/26/2020 EXAM PARAMETERS: NUMBER OF VIEWS: One view. TECHNIQUE: Single frontal radiographic view of the chest acquired. RADIATION DOSE: NA LIMITATIONS: None. FINDINGS: LUNGS AND PLEURA: Persistent blunting left lateral costophrenic sulcus from trace residual pleural fluid/ pleural thickening. No gross right pleural effusion. Mild pulmonary vascular prominence without pulmonary edema. No pneumothorax MEDIASTINUM AND HILAR STRUCTURES: No masses. Contour normal. HEART AND VASCULAR STRUCTURES: Heart normal in size. Normal vasculature. BONES: No acute findings. HARDWARE: None in the chest. OTHER: No other significant finding. IMPRESSION: Persistent blunting left lateral costophrenic sulcus, similar compared to 01/26/2020 from trace residual pleural fluid/ pleural thickening TECHNICAL DOCUMENTATION: JOB ID: [id number] 2010 [employer]- All Rights Reserved Reading location - IP/workstation name: [id number]
[2020-01-30] MEDS ORDERED: FUROSEMIDE INJ/PF 40 MG/4 ML SDV IV ONE (09:19)
[2020-01-30 09:33] LABS: ALKALINE PHOSPHATASE 146 U/L (38-126); ASPARTATE AMINO TRANSFERASE 21 U/L (17-59); BILIRUBIN,TOTAL 0.3 mg/dL (0.2-1.3); BLOOD UREA NITROGEN 31 mg/dL (7-20); CALCIUM 8.5 mg/dL (8.4-10.2); CREATINE KINASE 134 U/L (55-170); GLUCOSE 234 mg/dL (75-110); POTASSIUM 5.5 mmol/L (3.6-5.0); TOTAL PROTEIN 6.1 g/dL (6.3-8.2)
[2020-01-30 09:39] LABS: CARBON DIOXIDE 30 mmol/L (22-30); CHLORIDE 106 mmol/L (98-107)
[2020-01-30 09:42] LABS: ANION GAP 1 (5-19)
[2020-01-30 09:45] LABS: CREATINE KINASE MB 13.5 ng/mL (<4.55); TROPONIN I 0.02 ng/mL
[2020-01-30 11:04] LABS: APPEARANCE,URINE CLEAR; BILIRUBIN,URINE NEGATIVE (NEGATIVE); COLOR,URINE YELLOW; GLUCOSE, URINE 150 mg/dL (NEGATIVE); KETONES,URINE NEGATIVE (NEGATIVE); LEUKOCYTE ESTERASE,URINE NEGATIVE (NEGATIVE); NITRITE,URINE NEGATIVE (NEGATIVE); PROTEIN,URINE >=500 mg/dL (NEGATIVE); URINE SPECIFIC GRAVITY 1.016; UROBILINOGEN,URINE NEGATIVE mg/dL (<2.0)
[2020-01-30] MEDS ORDERED: ONDANSETRON 4 MG TAB.RAPDIS PO PRN (13:22)
[2020-01-30] MEDS ORDERED: IPRATROPIUM/ALBUTEROL 0.5-2.5 MG/3 ML AMPUL NEB PRN (13:22)
[2020-01-30] MEDS ORDERED: NORMAL SALINE 1000 ML 1,000 ML IV PRN (13:22)
[2020-01-30] MEDS ORDERED: ACETAMINOPHEN 325 MG TABLET PO PRN (13:22)
--- NOTE | 2020-01-30 13:38 | PDOC H&P ---
History of Present Illness Admission Date/PCP: 01/30/20 11:59 History of Present Illness: CHERELLE VALDIVIA is a 59 year old male Patient presents emergency room complaint of difficulty breathing and shortness of breath associated with a cough which started on January 28. He was recently discharged from the hospital on January 11 and at that time he had been COVID negative. He was seen in the ED on January 25 for shortness of breath and he was subsequently discharged from the ED. He comes again today with the same complaints. Was treated with Solu-Medrol and bronchodilators and it appears bessy t attempts to stabilize him and send him home failed and so he had to be placed on BiPAP. His breathing apparently improved on BiPAP and so he is being admitted for further evaluation and management. Is still remains on BiPAP at this time chest x-ray shows mild pulmonary vascular congestion without pulmonary edema and EKG shows a sinus rhythm grossly unchanged from previous rate he had a brief episode of hypoxia. His white count is within normal. He is sodium is a tad elevated at 5.5 and he appears to be slightly azotemic otherwise his BNP is 2560 which is actually the lowest is been on record Past Medical History Cardiac Medical History: Reports: Congestive Heart Failure, Coronary Artery Disease, Myocardial Infarction, Hyperlipidema, Hypertension Pulmonary Medical History: Reports: Chronic Obstructive Pulmonary Disease (COPD), Pneumonia, Respiratory Failure Endocrine Medical History: Reports: Diabetes Mellitus Type 2 - "Diet-controlled" Psychiatric Medical History: Reports: Depression Past Surgical History Past Surgical History: Reports: Cardiac Catheterization, Coronary Stent, Orthopedic Surgery - Left AKA Social History Information Source: [facility] Records Lives with: Family Smoking Status: Current Every Day Smoker Frequency of Alcohol Use: None Hx Recreational Drug Use: No Drugs: None Hx Prescription Drug Abuse: No - Advance Directive Resuscitation Status: Full Code Family History Family History: None, CAD, CVA, Hypertension, Malignancy Parental Family History Reviewed: No Children Family History Reviewed: No Sibling(s) Family History Reviewed.: No Medication/Allergy Home Medications: Albuterol Sulfate [Proair HFA Inhalation Aerosol 8.5 gm MDI] 2 puff IH Q4HP PRN #1 hfa.aer.ad 01/11/20 Apixaban [Eliquis 5 mg Tablet] 5 mg PO BID #60 tablet 01/11/20 Apixaban [Eliquis 5 mg Tablet] 10 mg PO BID #18 tablet 01/11/20 Aspirin [Aspirin 81 mg Chewable Tablet] 81 mg PO DAILY #30 tab.chew 01/11/20 Atorvastatin Calcium [Lipitor 40 mg Tablet] 40 mg PO QHS #30 tablet 01/11/20 Calcium Carbonate/Vitamin D3 [Caltrate 600-Vit D3 400 Tablet] 1 tab PO DAILY 1 Days #30 tablet 01/11/20 Carbidopa/Levodopa [Sinemet 10-100 mg Tablet] 1 tab PO Q8 #90 tablet 01/11/20 Carvedilol [Coreg 6.25 mg Tablet] 6.25 mg PO Q12 #60 tablet 01/11/20 Escitalopram Oxalate [Lexapro 10 mg Tablet] 10 mg PO DAILY #30 tablet 01/11/20 Fluticasone/Vilanterol [Breo 100-25 Mcg Ellipta 14 Dose/Dpi] 1 inh IH DAILY #1 inhaler 01/11/20 Furosemide [Lasix 40 mg Tablet] 40 mg PO BID #30 tablet 01/11/20 Prednisone [Deltasone 20 mg Tablet] 40 mg PO DAILY 2 Days #4 tablet 01/11/20 Pregabalin [Lyrica 75 mg Capsule] 75 mg PO Q12 #60 capsule 01/11/20 Sacubitril/Valsartan [Entresto 49 mg/51 mg Tablet] 1 tab PO BID #60 tablet 01/11/20 Albuterol Sulfate [Albuterol Sulfate Hfa] 8.5 gm IH Q6HP PRN 30 Days #2 hfa.aer.ad 01/12/20 Allergies/Adverse Reactions: No Known Allergies Allergy (Verified 01/26/20 12:30) Review of Systems ROS unobtainable: Due to mental status - And respiratory status, BiPAP Physical Exam Vital Signs: Temp Pulse Resp BP Pulse Ox 98.3 F 76 19 174/73 H 95 01/30/20 11:53 01/30/20 08:03 01/30/20 12:31 01/30/20 12:31 01/30/20 12:31 Intake & Output 01/29/20 01/30/20 01/31/20 06:59 06:59 06:59 Output Total 550 Balance -550 Weight 107.6 kg General appearance: PRESENT: no acute distress, other - BiPAP in place Head exam: PRESENT: atraumatic Respiratory exam: PRESENT: decreased breath sounds, rhonchi, unlabored. ABSENT: wheezes Cardiovascular exam: PRESENT: RRR, +S1, +S2 GI/Abdominal exam: PRESENT: normal bowel sounds, soft Rectal exam: PRESENT: deferred Extremities exam: PRESENT: other - L BKA R chronic vascular changes dermatitis Neurological exam: PRESENT: alert, awake, oriented to place, other - sleepy but arousable Skin exam: PRESENT: abrasion, rash Results Laboratory Results: 01/30/20 08:20 01/30/20 08:50 01/30/20 01/30/20 01/30/20 08:20 08:20 08:50 WBC 8.8 RBC 4.10 L Hgb 12.8 L Hct 37.2 L MCV 91 MCH 31.3 MCHC 34.5 RDW 14.4 H Plt Count 259 Seg Neutrophils % 78.1 H Sodium Cancelled 136.9 L Potassium Cancelled 5.5 H Chloride Cancelled 106 Carbon Dioxide Cancelled 30 Anion Gap Cancelled 1 L BUN Cancelled 31 H Creatinine Cancelled 1.15 Est GFR ( Amer) Cancelled > 60 Est GFR (Non-Af Amer) Cancelled Glucose Cancelled 234 H Calcium Cancelled 8.5 Total Bilirubin Cancelled 0.3 AST Cancelled 21 Alkaline Phosphatase Cancelled 146 H Total Protein Cancelled 6.1 L Albumin Cancelled 3.0 L Urine Color Urine Appearance Urine pH Ur Specific [place] Urine Protein Urine Glucose (UA) Urine Ketones Urine Blood Urine Nitrite Ur Leukocyte Esterase Urine WBC (Auto) Urine RBC (Auto) 01/30/20 10:29 WBC RBC Hgb Hct MCV MCH MCHC RDW Plt Count Seg Neutrophils % Sodium Potassium Chloride Carbon Dioxide Anion Gap BUN Creatinine Est GFR ( Amer) Est GFR (Non-Af Amer) Glucose Calcium Total Bilirubin AST Alkaline Phosphatase Total Protein Albumin Urine Color YELLOW Urine Appearance CLEAR Urine pH 5.0 Ur Specific [place] 1.016 Urine Protein >=500 H Urine Glucose (UA) 150 H Urine Ketones NEGATIVE Urine Blood SMALL H Urine Nitrite NEGATIVE Ur Leukocyte Esterase NEGATIVE Urine WBC (Auto) 1 Urine RBC (Auto) 2 01/30/20 01/30/20 01/30/20 08:20 08:20 08:50 Creatine Kinase Cancelled CK-MB (CK-2) Cancelled 13.50 H Troponin I Cancelled 0.020 NT-Pro-B Natriuret Pep Cancelled 2560 H 01/30/20 08:50 Creatine Kinase 134 CK-MB (CK-2) Troponin I NT-Pro-B Natriuret Pep Impressions: Chest X-Ray 01/30/20 07:47 IMPRESSION: Persistent blunting left lateral costophrenic sulcus, similar compared to 01/26/2020 from trace residual pleural fluid/ pleural thickening Assessment and Plan - Diagnosis (1) COPD exacerbation Is this a current diagnosis for this admission?: Yes (2) Dyspnea Qualifiers: Dyspnea type: shortness of breath Qualified Code(s): R06.02 - Shortness of breath; R06.00 - Dyspnea, unspecified; R06.01 - Orthopnea Is this a current diagnosis for this admission?: Yes (3) HTN (hypertension) Qualifiers: Hypertension type: essential hypertension Qualified Code(s): I10 - Essential (primary) hypertension Is this a current diagnosis for this admission?: Yes (4) Pulmonary vascular congestion Is this a current diagnosis for this admission?: Yes (5) Acute combined systolic (congestive) and diastolic (congestive) heart failure Is this a current diagnosis for this admission?: Yes - Plan Summary Summary: Patient will be admitted to telemetry. He will be placed on BiPAP. Will wean him off as tolerated. He will be placed on Solu-Medrol. We will diurese him. His home medications will be continued after review and reconciliation. - Time Time Spent with patient: 25-34 minutes Anticipated discharge: Home Within: within 48 hours
[2020-01-30] MEDS: APIXABAN 5 MG TABLET PO SCH (18:41)
[2020-01-30] MEDS ORDERED: CARVEDILOL 6.25 MG TABLET PO ONE (18:45)
[2020-01-30] MEDS: METHYLPREDNISOLONE INJ 40 MG/1 ML SDV IV SCH (21:43)
[2020-01-31 06:22] LABS: ABSOLUTE LYMPHOCYTES (AUTO) 0.5 10^3/uL (0.5-4.7); ABSOLUTE MONOCYTES (AUTO) 0.2 10^3/uL (0.1-1.4); ABSOLUTE NEUT (AUTO) 6.3 10^3/uL (1.7-8.2); BASOPHILS % (AUTO) 0.1 % (0-2); HEMATOCRIT 33.6 % (37.9-51.0); HEMOGLOBIN 11.6 g/dL (13.5-17.0); MEAN CORPUSCULAR HEMOGLOBIN 30.8 pg (27.0-33.4); MEAN CORPUSCULAR HGB CONC 34.4 g/dL (32.0-36.0); MEAN CORPUSCULAR VOLUME 90 fl (80-97); MONOCYTES % (AUTO) 2.5 % (3-13); PLATELET COUNT 221 10^3/uL (150-450); RED BLOOD COUNT 3.76 10^6/uL (4.35-5.55); RED CELL DISTRIBUTION WIDTH 14.2 % (11.5-14.0); SEGMENTED NEUTROPHILS % (AUTO) 90.4 % (42-78); TOTAL CELLS COUNTED % (AUTO) 100 %
[2020-01-31 06:43] LABS: BLOOD UREA NITROGEN 41 mg/dL (7-20); CALCIUM 8.3 mg/dL (8.4-10.2); CHLORIDE 102 mmol/L (98-107); GLUCOSE 294 mg/dL (75-110); POTASSIUM 5.3 mmol/L (3.6-5.0)
[2020-01-31 06:48] LABS: ANION GAP 6 (5-19); CARBON DIOXIDE 26 mmol/L (22-30)
[2020-01-31] MEDS: DOCUSATE SODIUM 100 MG CAPSULE PO SCH (09:57)
[2020-01-31] MEDS: FUROSEMIDE INJ/PF 40 MG/4 ML SDV IV SCH (09:57)
[2020-01-31] MEDS: APIXABAN 5 MG TABLET PO SCH ×2 (09:57→17:33)
[2020-01-31] MEDS: CARVEDILOL 6.25 MG TABLET PO SCH ×2 (09:58→21:42)
[2020-01-31] MEDS: METHYLPREDNISOLONE INJ 40 MG/1 ML SDV IV SCH (09:58)
--- NOTE | 2020-01-31 10:34 | EKG REPORT ---
SEVERITY:- ABNORMAL ECG - SINUS RHYTHM FIRST DEGREE AV BLOCK RIGHT BUNDLE BRANCH BLOCK ANTERIOR INFARCT, OLD : Confirmed by: Aakash Smyth 31-Jan-2020 10:33:33
--- NOTE | 2020-01-31 13:39 | PDOC PROGRESS REPORT ---
Subjective Progress Note for:: 01/31/20 Subjective:: Patient states his breathing is basically unchanged he denies any chest pain Reason For Visit: ACUTE RESPIRATORY FAILURE Physical Exam Vital Signs: Temp Pulse Resp BP Pulse Ox 97.4 F 74 20 149/68 H 98 01/31/20 11:47 01/31/20 11:47 01/31/20 11:47 01/31/20 11:47 01/31/20 11:47 Intake & Output 01/30/20 01/31/20 02/01/20 06:59 06:59 06:59 Intake Total 240 Output Total 1350 Balance -1110 Weight 110.4 kg General appearance: PRESENT: no acute distress, other - In no distress Head exam: PRESENT: atraumatic, normocephalic Eye exam: PRESENT: conjunctiva pink, EOMI. ABSENT: scleral icterus Ear exam: PRESENT: normal external ear exam Mouth exam: PRESENT: moist, tongue midline Neck exam: ABSENT: carotid bruit, JVD, lymphadenopathy, thyromegaly Respiratory exam: PRESENT: crackles, decreased breath sounds. ABSENT: rales, rhonchi, wheezes Cardiovascular exam: PRESENT: irregular rhythm, +S1, +S2. ABSENT: diastolic murmur, rubs, systolic murmur Pulses: PRESENT: normal dorsalis pedis pul Vascular exam: PRESENT: normal capillary refill GI/Abdominal exam: PRESENT: normal bowel sounds, soft. ABSENT: distended, guarding, mass, organolmegaly, rebound, tenderness Rectal exam: PRESENT: deferred Extremities exam: PRESENT: full ROM, other - Left above-knee amputation. ABSENT: calf tenderness, clubbing, pedal edema Neurological exam: PRESENT: alert, awake, oriented to person, oriented to place, oriented to time, oriented to situation, CN II-XII grossly intact. ABSENT: mot or sensory deficit Psychiatric exam: PRESENT: appropriate affect, normal mood. ABSENT: homicidal ideation, suicidal ideation Skin exam: PRESENT: other - Chronic skin changes with chronic wound present on admission Results Laboratory Results: 01/31/20 05:17 01/31/20 05:17 01/31/20 01/31/20 05:17 05:17 WBC 7.0 RBC 3.76 L Hgb 11.6 L Hct 33.6 L MCV 90 MCH 30.8 MCHC 34.4 RDW 14.2 H Plt Count 221 Seg Neutrophils % 90.4 H Sodium 133.9 L Potassium 5.3 H Chloride 102 Carbon Dioxide 26 Anion Gap 6 BUN 41 H Creatinine 1.13 Est GFR ( Amer) > 60 Glucose 294 H Calcium 8.3 L 01/30/20 01/30/20 01/30/20 08:20 08:20 08:50 Creatine Kinase Cancelled CK-MB (CK-2) Cancelled 13.50 H Troponin I Cancelled 0.020 NT-Pro-B Natriuret Pep Cancelled 2560 H 01/30/20 08:50 Creatine Kinase 134 CK-MB (CK-2) Troponin I NT-Pro-B Natriuret Pep Impressions: Chest X-Ray 01/30/20 07:47 IMPRESSION: Persistent blunting left lateral costophrenic sulcus, similar compared to 01/26/2020 from trace residual pleural fluid/ pleural thickening Assessment and Plan - Diagnosis (1) COPD exacerbation Is this a current diagnosis for this admission?: Yes (2) Dyspnea Qualifiers: Dyspnea type: shortness of breath Qualified Code(s): R06.02 - Shortness of breath; R06.00 - Dyspnea, unspecified; R06.01 - Orthopnea Is this a current diagnosis for this admission?: Yes (3) HTN (hypertension) Qualifiers: Hypertension type: essential hypertension Qualified Code(s): I10 - Essential (primary) hypertension Is this a current diagnosis for this admission?: Yes (4) Pulmonary vascular congestion Is this a current diagnosis for this admission?: Yes (5) Acute combined systolic (congestive) and diastolic (congestive) heart failure Is this a current diagnosis for this admission?: Yes (6) Hyperkalemia Is this a current diagnosis for this admission?: Yes Plan: Possibly iatrogenic. We will continue to monitor - Plan Summary Summary: Patient continues on BiPAP. Will continue to monitor and taper off as tolerated. We will also to follow-up with steroids as per his response
[2020-01-31] MEDS: CARBIDOPA/LEVODOPA 10-100 MG TABLET PO SCH ×2 (16:18→21:42)
[2020-01-31] MEDS: ATORVASTATIN CALCIUM 40 MG TABLET PO SCH (21:42)
[2020-02-01] MEDS: CARBIDOPA/LEVODOPA 10-100 MG TABLET PO SCH ×3 (06:06→22:00)
[2020-02-01] MEDS: FUROSEMIDE INJ/PF 40 MG/4 ML SDV IV SCH (09:18)
[2020-02-01] MEDS: APIXABAN 5 MG TABLET PO SCH ×2 (09:18→17:30)
[2020-02-01] MEDS: CARVEDILOL 6.25 MG TABLET PO SCH ×2 (09:18→22:00)
[2020-02-01] MEDS: DOCUSATE SODIUM 100 MG CAPSULE PO SCH (09:18)
[2020-02-01] MEDS: ASPIRIN 81 MG TABLET, CHEWABLE PO SCH (09:21)
[2020-02-01] MEDS: ESCITALOPRAM OXALATE 10 MG TABLET PO SCH (09:21)
[2020-02-01] MEDS ORDERED: METHYLPREDNISOLONE INJ 40 MG/1 ML SDV IV SCH (10:00)
--- NOTE | 2020-02-01 11:43 | PDOC PROGRESS REPORT ---
Subjective Progress Note for:: 02/01/20 Subjective:: Patient states his breathing is basically unchanged he denies any chest pain, still short of breath especially with activity Reason For Visit: ACUTE RESPIRATORY FAILURE Physical Exam Vital Signs: Temp Pulse Resp BP Pulse Ox 98.1 F 71 19 159/78 H 99 02/01/20 11:11 02/01/20 11:11 02/01/20 11:11 02/01/20 11:11 02/01/20 11:11 Intake & Output 01/31/20 02/01/20 02/02/20 06:59 06:59 06:59 Intake Total 240 960 Output Total 1350 950 Balance -1110 10 Weight 110.4 kg 110.4 kg General appearance: PRESENT: no acute distress, well-nourished, other - Currently on BiPAP Head exam: PRESENT: atraumatic, normocephalic Eye exam: PRESENT: conjunctiva pink, EOMI. ABSENT: scleral icterus Mouth exam: PRESENT: moist, tongue midline Neck exam: ABSENT: carotid bruit, JVD, lymphadenopathy, thyromegaly Respiratory exam: PRESENT: clear to auscultation jose. ABSENT: rales, rhonchi, wheezes Cardiovascular exam: PRESENT: irregular rhythm, RRR, +S1, +S2. ABSENT: diastol ic murmur, rubs, systolic murmur Vascular exam: PRESENT: normal capillary refill GI/Abdominal exam: PRESENT: normal bowel sounds, soft. ABSENT: distended, guarding, mass, organolmegaly, rebound, tenderness Rectal exam: PRESENT: deferred Extremities exam: PRESENT: other - Left below-knee amputation. ABSENT: calf tenderness, clubbing, pedal edema Neurological exam: PRESENT: alert, awake, oriented to person, oriented to place, oriented to time, oriented to situation, CN II-XII grossly intact. ABSENT: motor sensory deficit Psychiatric exam: PRESENT: appropriate affect. ABSENT: homicidal ideation, suicidal ideation Skin exam: PRESENT: other - Chronic skin changes and also right lower extremity. ABSENT: cyanosis, rash Results Laboratory Results: 01/31/20 05:17 01/31/20 05:17 01/30/20 01/30/20 01/30/20 08:20 08:20 08:50 Creatine Kinase Cancelled CK-MB (CK-2) Cancelled 13.50 H Troponin I Cancelled 0.020 NT-Pro-B Natriuret Pep Cancelled 2560 H 01/30/20 08:50 Creatine Kinase 134 CK-MB (CK-2) Troponin I NT-Pro-B Natriuret Pep Impressions: Chest X-Ray 01/30/20 07:47 IMPRESSION: Persistent blunting left lateral costophrenic sulcus, similar compared to 01/26/2020 from trace residual pleural fluid/ pleural thickening Assessment and Plan - Diagnosis (1) COPD exacerbation Is this a current diagnosis for this admission?: Yes (2) Dyspnea Qualifiers: Dyspnea type: shortness of breath Qualified Code(s): R06.02 - Shortness of breath; R06.00 - Dyspnea, unspecified; R06.01 - Orthopnea Is this a current diagnosis for this admission?: Yes (3) HTN (hypertension) Qualifiers: Hypertension type: essential hypertension Qualified Code(s): I10 - Essent ial (primary) hypertension Is this a current diagnosis for this admission?: Yes (4) Pulmonary vascular congestion Is this a current diagnosis for this admission?: Yes Plan: Continue with diuresis (5) Acute combined systolic (congestive) and diastolic (congestive) heart failure Is this a current diagnosis for this admission?: Yes Plan: Continue Lasix and adjust as needed (6) Hyperkalemia Is this a current diagnosis for this admission?: Yes - Plan Summary Summary: Patient continues on BiPAP. Will continue to monitor and taper off as tolerated. We will taper steroids as per his response. He is currently on Solu-Medrol 40 mg IV daily
[2020-02-01] MEDS: PREDNISONE 20 MG TABLET PO SCH (17:30)
[2020-02-01] MEDS: ATORVASTATIN CALCIUM 40 MG TABLET PO SCH (22:00)
[2020-02-01] MEDS: TEMAZEPAM 7.5 MG CAPSULE PO PRN (23:02)
[2020-02-02 05:30] LABS: ABSOLUTE LYMPHOCYTES (AUTO) 0.9 10^3/uL (0.5-4.7); ABSOLUTE MONOCYTES (AUTO) 0.6 10^3/uL (0.1-1.4); BASOPHILS % (AUTO) 0.5 % (0-2); EOSINOPHILS % (AUTO) 0.2 % (0-6); HEMOGLOBIN 11.7 g/dL (13.5-17.0); LYMPHOCYTES % (AUTO) 10.9 % (13-45); MEAN CORPUSCULAR HEMOGLOBIN 30.5 pg (27.0-33.4); MEAN CORPUSCULAR HGB CONC 34.3 g/dL (32.0-36.0); MEAN CORPUSCULAR VOLUME 89 fl (80-97); MONOCYTES % (AUTO) 6.6 % (3-13); PLATELET COUNT 227 10^3/uL (150-450); RED BLOOD COUNT 3.82 10^6/uL (4.35-5.55); RED CELL DISTRIBUTION WIDTH 14.2 % (11.5-14.0); SEGMENTED NEUTROPHILS % (AUTO) 81.8 % (42-78); TOTAL CELLS COUNTED % (AUTO) 100 %; WHITE BLOOD COUNT 8.6 10^3/uL (4.0-10.5)
[2020-02-02 05:43] LABS: BLOOD UREA NITROGEN 47 mg/dL (7-20); CALCIUM 8.3 mg/dL (8.4-10.2); CHLORIDE 100 mmol/L (98-107); GLUCOSE 286 mg/dL (75-110); POTASSIUM 4.8 mmol/L (3.6-5.0)
[2020-02-02 05:49] LABS: CARBON DIOXIDE 30 mmol/L (22-30)
[2020-02-02 06:00] LABS: ANION GAP 3 (5-19)
[2020-02-02] MEDS: CARBIDOPA/LEVODOPA 10-100 MG TABLET PO SCH ×3 (06:06→22:13)
[2020-02-02] MEDS: APIXABAN 5 MG TABLET PO SCH ×2 (10:54→17:53)
[2020-02-02] MEDS: ESCITALOPRAM OXALATE 10 MG TABLET PO SCH (10:54)
[2020-02-02] MEDS: CARVEDILOL 6.25 MG TABLET PO SCH (10:54)
[2020-02-02] MEDS: ASPIRIN 81 MG TABLET, CHEWABLE PO SCH (10:54)
[2020-02-02] MEDS: DOCUSATE SODIUM 100 MG CAPSULE PO SCH (10:54)
[2020-02-02] MEDS: FUROSEMIDE INJ/PF 40 MG/4 ML SDV IV SCH (10:54)
[2020-02-02] MEDS: PREDNISONE 20 MG TABLET PO SCH ×2 (10:54→17:53)
[2020-02-02] MEDS ORDERED: GLUCAGON,HUMAN RECOMB 1 MG INJ IM PRN (13:09)
[2020-02-02] MEDS ORDERED: DEXTROSE 50%-WATER 25 GM/50 ML DISP.SYRIN IV PRN ×2 (13:09)
[2020-02-02] MEDS ORDERED: DEXTROSE 40% GEL 15 GM TUBE PO PRN ×2 (13:09)
--- NOTE | 2020-02-02 13:19 | PDOC PROGRESS REPORT ---
Subjective Progress Note for:: 02/02/20 Subjective:: Patient was seen on morning rounds. He was found resting in bed, comfortably, on BiPAP. He was sleeping but woke easily when I said his name. He does admit that his breathing is improved, although, does continue to have increased work of breathing with minimal activity and during conversations. He denies fever, chest pain, palpitations, cough, abdominal pain, nausea and vomiting. Reports that his peripheral edema is at its baseline. He has no questions or concerns at this time. No concerns per nursing. Reason For Visit: ACUTE RESPIRATORY FAILURE Physical Exam Vital Signs: Temp Pulse Resp BP Pulse Ox 98.6 F 70 26 H 167/77 H 99 02/02/20 11:27 02/02/20 11:27 02/02/20 11:27 02/02/20 11:27 02/02/20 11:27 Intake & Output 02/01/20 02/02/20 02/03/20 06:59 06:59 06:59 Intake Total 960 2884 Output Total 950 3925 Balance 10 -1041 Weight 110.4 kg 106.6 kg General appearance: PRESENT: no acute distress, disheveled, well-developed, well-nourished Head exam: PRESENT: atraumatic, normocephalic Eye exam: PRESENT: conjunctiva pink, EOMI, PERRLA. ABSENT: scleral icterus Mouth exam: PRESENT: moist, tongue midline Respiratory exam: PRESENT: crackles - Left lower mills, prolonged expiratory phas, symmetrical, unlabored, other - BiPAP. ABSENT: rales, rhonchi, wheezes Cardiovascular exam: PRESENT: irregular rhythm. ABSENT: diastolic murmur, rubs, systolic murmur Pulses: PRESENT: normal dorsalis pedis pul Vascular exam: PRESENT: normal capillary refill GI/Abdominal exam: PRESENT: normal bowel sounds, soft. ABSENT: distended, guarding, mass, organolmegaly, rebound, tenderness Rectal exam: PRESENT: deferred Extremities exam: PRESENT: full ROM, other - Left BKA. ABSENT: calf tenderness, clubbing, pedal edema Neurological exam: PRESENT: alert, awake, oriented to person, oriented to place, oriented to time, oriented to situation, CN II-XII grossly intact. ABSENT: motor sensory deficit Psychiatric exam: PRESENT: anxious, appropriate affect, normal mood. ABSENT: homicidal ideation, suicidal ideation Skin exam: PRESENT: dry, intact, warm, other - Chronic venous stasis changes to right lower extremity. ABSENT: cyanosis, rash Results Laboratory Results: 02/02/20 04:53 02/02/20 04:53 02/02/20 02/02/20 04:53 04:53 WBC 8.6 RBC 3.82 L Hgb 11.7 L Hct 34.0 L MCV 89 MCH 30.5 MCHC 34.3 RDW 14.2 H Plt Count 227 Seg Neutrophils % 81.8 H Sodium 133.2 L Potassium 4.8 Chloride 100 Carbon Dioxide 30 Anion Gap 3 L BUN 47 H Creatinine 1.22 Est GFR ( Amer) > 60 Glucose 286 H Calcium 8.3 L 01/30/20 01/30/20 01/30/20 08:20 08:20 08:50 Creatine Kinase Cancelled CK-MB (CK-2) Cancelled 13.50 H Troponin I Cancelled 0.020 NT-Pro-B Natriuret Pep Cancelled 2560 H 01/30/20 08:50 Creatine Kinase 134 CK-MB (CK-2) Troponin I NT-Pro-B Natriuret Pep Impressions: Chest X-Ray 01/30/20 07:47 IMPRESSION: Persistent blunting left lateral costophrenic sulcus, similar compared to 01/26/2020 from trace residual pleural fluid/ pleural thickening Assessment and Plan - Diagnosis (1) Acute combined systolic (congestive) and diastolic (congestive) heart failure Is this a current diagnosis for this admission?: Yes Plan: Patient is monitored on continuous cardiac telemetry. Echocardiogram 01/05/2020 revealed LVEF 45% with mild LVH, mild diastolic dysfunction. He is placed on a cardiac diet. Fluid restricted 2 L/day. Reviewed Dr. Avila's progress note from his recent admission and have adjusted medications to reflect recommendations. Increase carvedilol to 12.5 mg twice daily. Start on Entresto. Continue aspirin and statin therapy. Continue Eliquis. Continue to diurese with IV furosemide; increased to 20 mg IV every 8 versus the 40 mg once daily he was on previously. Continue daily weights and strict I&O's. (2) COPD exacerbation Is this a current diagnosis for this admission?: Yes Plan: Patient is admitted to the medical floor on continuous cardiac telemetry. Will provide supplemental oxygen and BiPAP as needed to maintain saturations greater than 89%. Start on scheduled and as needed nebulizer treatments. Continue prednisone Mucinex twice daily. Pulmonary toilet is encouraged with incentive spirometer, flutter valve, and early ambulation. (3) Diabetes Qualifiers: Diabetes mellitus type: type 2 Diabetes mellitus correction insulin use: without correction use Diabetes mellitus complication status: with hyperglycemia Qualified Code(s): E11.65 - Type 2 diabetes mellitus with hyperglycemia Is this a current diagnosis for this admission?: Yes Plan: A1c 7.0% Patient is placed on a consistent carb/cardiac diet. Accu-Cheks before meals and at bedtime with Humalog for sliding scale coverage. Hypoglycemia protocol in place. Registered dietitian rn diabetes educator consulted. Should be discharged on oral diabetic agent. (4) Hyperkalemia Is this a current diagnosis for this admission?: Yes Plan: Resolved. Possibly iatrogenic. Follow-up chemistry. (5) Pulmonary vascular congestion Is this a current diagnosis for this admission?: Yes Plan: Noted on chest imaging. Secondary to #1. Management as above. (6) HLD (hyperlipidemia) Is this a current diagnosis for this admission?: Yes Plan: Continue daily statin therapy. Cardiac diet. (7) HTN (hypertension) Qualifiers: Hypertension type: essential hypertension Qualified Code(s): I10 - Essential (primary) hypertension Is this a current diagnosis for this admission?: Yes Plan: Antihypertensives as above. Cardiac diet. (8) Dyspnea Qualifiers: Dyspnea type: shortness of breath Qualified Code(s): R06.02 - Shortness of breath; R06.00 - Dyspnea, unspecified; R06.01 - Orthopnea Is this a current diagnosis for this admission?: Yes Plan: Secondary to COPD exacerbation and acute on chronic CHF exacerbation. Management as above. - Time Time Spent with patient: 35 or more minutes Medications reviewed and adjusted accordingly: Yes Anticipated discharge: SNF - [facility] vs SNF for LTC
[2020-02-02] MEDS: FUROSEMIDE INJ/PF 20 MG/2 ML SDV IV SCH ×2 (13:49→22:13)
[2020-02-02] MEDS: INSULIN LISPRO 100 UNIT/ML 3 ML VIAL SUBCUT SCH ×2 (17:53→22:23)
[2020-02-02] MEDS: SACUBITRIL/VALSARTAN 24 MG/26 MG TABLET PO SCH (17:53)
[2020-02-02] MEDS: IPRATROPIUM/ALBUTEROL 0.5-2.5 MG/3 ML AMPUL NEB SCH (20:04)
[2020-02-02] MEDS ORDERED: CARVEDILOL 6.25 MG TABLET PO SCH (22:00)
[2020-02-02] MEDS: GUAIFENESIN 600 MG TABLET.SA PO SCH (22:12)
[2020-02-02] MEDS: ATORVASTATIN CALCIUM 40 MG TABLET PO SCH (22:12)
[2020-02-02] MEDS: CARVEDILOL 12.5 MG TABLET PO SCH (22:13)
[2020-02-03 05:57] LABS: HEMATOCRIT 35.5 % (37.9-51.0); HEMOGLOBIN 12.3 g/dL (13.5-17.0); MEAN CORPUSCULAR HEMOGLOBIN 30.4 pg (27.0-33.4); MEAN CORPUSCULAR HGB CONC 34.5 g/dL (32.0-36.0); MEAN CORPUSCULAR VOLUME 88 fl (80-97); PLATELET COUNT 224 10^3/uL (150-450); RED BLOOD COUNT 4.03 10^6/uL (4.35-5.55); RED CELL DISTRIBUTION WIDTH 14.1 % (11.5-14.0); WHITE BLOOD COUNT 8.9 10^3/uL (4.0-10.5)
[2020-02-03] MEDS: CARBIDOPA/LEVODOPA 10-100 MG TABLET PO SCH ×3 (06:18→21:06)
[2020-02-03] MEDS: FUROSEMIDE INJ/PF 20 MG/2 ML SDV IV SCH ×3 (06:18→21:05)
[2020-02-03 06:20] LABS: BLOOD UREA NITROGEN 44 mg/dL (7-20); CALCIUM 8.4 mg/dL (8.4-10.2); GLUCOSE 199 mg/dL (75-110)
[2020-02-03 06:22] LABS: POTASSIUM 4.5 mmol/L (3.6-5.0)
[2020-02-03 06:26] LABS: ANION GAP 2 (5-19); CARBON DIOXIDE 34 mmol/L (22-30); CHLORIDE 98 mmol/L (98-107)
[2020-02-03] MEDS: INSULIN LISPRO 100 UNIT/ML 3 ML VIAL SUBCUT SCH ×4 (07:39→21:57)
[2020-02-03] MEDS: IPRATROPIUM/ALBUTEROL 0.5-2.5 MG/3 ML AMPUL NEB SCH ×2 (08:04→20:20)
[2020-02-03] MEDS: CARVEDILOL 12.5 MG TABLET PO SCH ×2 (09:39→21:05)
[2020-02-03] MEDS: DOCUSATE SODIUM 100 MG CAPSULE PO SCH (09:39)
[2020-02-03] MEDS: ASPIRIN 81 MG TABLET, CHEWABLE PO SCH (09:39)
[2020-02-03] MEDS: PREDNISONE 20 MG TABLET PO SCH ×2 (09:39→17:00)
[2020-02-03] MEDS: ESCITALOPRAM OXALATE 10 MG TABLET PO SCH (09:39)
[2020-02-03] MEDS: SACUBITRIL/VALSARTAN 24 MG/26 MG TABLET PO SCH ×2 (09:39→17:00)
[2020-02-03] MEDS: GUAIFENESIN 600 MG TABLET.SA PO SCH ×2 (09:39→21:06)
[2020-02-03] MEDS: APIXABAN 5 MG TABLET PO SCH ×2 (09:39→17:00)
[2020-02-03 11:42] LABS: PARTIAL THROMBOPLASTIN TIME 27.3 SEC (23.5-35.8); PROTHROMBIN TIME 14.3 SEC (11.4-15.4)
--- NOTE | 2020-02-03 11:56 | RADIOLOGY REPORT (SQ) ---
EXAM DESCRIPTION: U/S ABDOMEN LIMITED W/O DOP IMAGES COMPLETED DATE/TIME: 02/03/2020 11:43 am REASON FOR STUDY: ascites COMPARISON: None. TECHNIQUE: Limited Static and real time white scale imaging performed of the 4 abdominal quadrants an d the midline. LIMITATIONS: None. FINDINGS: ASCITES: None identified. OTHER: No other significant finding. IMPRESSION: NO EVIDENCE FOR ASCITES. TECHNICAL DOCUMENTATION: JOB ID: [id number] 2010 [employer]- All Rights Reserved Reading location - IP/workstation name: [email or web address]
--- NOTE | 2020-02-03 14:11 | PDOC PROGRESS REPORT ---
Subjective Progress Note for:: 02/03/20 Subjective:: Patient was seen on morning rounds. He was found resting in bed, comfortably, on BiPAP. He was sleeping but woke easily when I said his name. He was transitioned from BiPAP to NC; tolerated well without increased work of breathing. He confirms that his breathing is improved, although, does continue to have increased work of breathing with minimal activity and during conversations. He does admit that his use of BiPAP has been, in part, due to comfort/nervousness regarding dyspnea. He is agreeable to weaning BiPAP use today. He does report increased abdominal girth; reports he has been "tested for Hep C multiple times." Overall, he is feeling much better. Requests assistance with LTC placement. He denies fever, chest pain, palpitations, cough, abdominal pain, nausea and vomiting. Reports that his peripheral edema is at its baseline. He has no questions or concerns at this time. No concerns per nursing. Reason For Visit: ACUTE RESPIRATORY FAILURE Physical Exam Vital Signs: Temp Pulse Resp BP Pulse Ox 97.7 F 59 L 16 149/67 H 97 02/03/20 10:31 02/03/20 10:31 02/03/20 10:31 02/03/20 10:31 02/03/20 10:31 Intake & Output 02/02/20 02/03/20 02/04/20 06:59 06:59 06:59 Intake Total 2884 1359 676 Output Total 3925 3450 2200 Balance -1041 -7771 -1524 Weight 106.6 kg 106.6 kg General appearance: PRESENT: no acute distress, disheveled, obese, well- developed, well-nourished Head exam: PRESENT: atraumatic, normocephalic Eye exam: PRESENT: conjunctiva pink, EOMI, PERRLA. ABSENT: scleral icterus Ear exam: PRESENT: normal external ear exam Mouth exam: PRESENT: moist, tongue midline Respiratory exam: PRESENT: crackles - Lt lower mills, prolonged expiratory phas, symmetrical, unlabored, other - supplemental oxygen/BiPAP use. ABSENT: rales, rhonchi, wheezes Cardiovascular exam: PRESENT: irregular rhythm. ABSENT: diastolic murmur, rubs, systolic murmur Vascular exam: PRESENT: normal capillary refill GI/Abdominal exam: PRESENT: normal bowel sounds, soft, other - rotund. ABSENT: guarding, mass, organolmegaly, rebound, tenderness Rectal exam: PRESENT: deferred Extremities exam: PRESENT: full ROM, other - Left BKA. ABSENT: calf tenderness, clubbing, pedal edema Neurological exam: PRESENT: alert, awake, oriented to person, oriented to place, oriented to time, oriented to situation, CN II-XII grossly intact. ABSENT: motor sensory deficit Psychiatric exam: PRESENT: appropriate affect, normal mood. ABSENT: homicidal ideation, suicidal ideation Skin exam: PRESENT: dry, warm. ABSENT: cyanosis, intact - Chronic venous stasis changes to right lower extremity, rash Results Laboratory Results: 02/03/20 05:00 02/03/20 05:00 02/03/20 02/03/20 05:00 05:00 WBC 8.9 RBC 4.03 L Hgb 12.3 L Hct 35.5 L MCV 88 MCH 30.4 MCHC 34.5 RDW 14.1 H Plt Count 224 Sodium 133.7 L Potassium 4.5 Chloride 98 Carbon Dioxide 34 H Anion Gap 2 L BUN 44 H Creatinine 1.07 Est GFR ( Amer) > 60 Glucose 199 H Calcium 8.4 01/30/20 01/30/20 01/30/20 08:20 08:20 08:50 Creatine Kinase Cancelled CK-MB (CK-2) Cancelled 13.50 H Troponin I Cancelled 0.020 NT-Pro-B Natriuret Pep Cancelled 2560 H 01/30/20 02/03/20 08:50 05:00 Creatine Kinase 134 CK-MB (CK-2) Troponin I NT-Pro-B Natriuret Pep 4190 H Impressions: Chest X-Ray 01/30/20 07:47 IMPRESSION: Persistent blunting left lateral costophrenic sulcus, similar compared to 01/26/2020 from trace residual pleural fluid/ pleural thickening Abdomen Ultrasound 02/03/20 10:52 IMPRESSION: NO EVIDENCE FOR ASCITES. Assessment and Plan - Diagnosis (1) Acute combined systolic (congestive) and diastolic (congestive) heart failure Is this a current diagnosis for this admission?: Yes Plan: Patient is monitored on continuous cardiac telemetry. Echocardiogram 01/05/2020 revealed LVEF 45% with mild LVH, mild diastolic dysfunction. He is placed on a cardiac diet. Fluid restricted 2 L/day. Reviewed Dr. Avila's progress note from his recent admission and have adjusted medications to reflect recommendations. Have increased carvedilol to 12.5 mg twice daily. Continue on Entresto; consider dose increase tomorrow if blood pressure remains stable. Continue aspirin and statin therapy. Continue Eliquis. Continue to diurese with IV furosemide; have increased to 20 mg IV every 8 versus the 40 mg once daily he was on previously. Continue daily weights and strict I&O's. Wt down ~3 kg; down ~4.5 L. (2) COPD exacerbation Is this a current diagnosis for this admission?: Yes Plan: Follow up CXR and ABG pending. Patient is admitted to the medical floor on continuous cardiac telemetry. Will provide supplemental oxygen and BiPAP as needed to maintain saturations greater than 89%. Begin weaning BiPAP; 2 hrs on/off. Continue on scheduled and as needed nebulizer treatments. Continue prednisone Mucinex twice daily. Pulmonary toilet is encouraged with incentive spirometer, flutter valve, and early ambulation. (3) Diabetes Qualifiers: Diabetes mellitus type: type 2 Diabetes mellitus snf insulin use: without snf use Diabetes mellitus complication status: with hyperglycemia Qualified Code(s): E11.65 - Type 2 diabetes mellitus with hyperglycemia Is this a current diagnosis for this admission?: Yes Plan: A1c 7.0% Patient is placed on a consistent carb/cardiac diet. Accu-Cheks before meals and at bedtime with Humalog for sliding scale coverage. Hypoglycemia protocol in place. Registered dietitian conservation educator consulted. Should be discharged on oral diabetic agent. (4) Hyperkalemia Is this a current diagnosis for this admission?: Yes Plan: Resolved. Possibly iatrogenic. Follow-up chemistry. (5) Pulmonary vascular congestion Is this a current diagnosis for this admission?: Yes Plan: Noted on chest imaging. Secondary to #1. Management as above. (6) HLD (hyperlipidemia) Is this a current diagnosis for this admission?: Yes Plan: Continue daily statin therapy. Cardiac diet. (7) HTN (hypertension) Qualifiers: Hypertension type: essential hypertension Qualified Code(s): I10 - Essential (primary) hypertension Is this a current diagnosis for this admission?: Yes Plan: Antihypertensives as above. Cardiac diet. (8) Dyspnea Qualifiers: Dyspnea type: shortness of breath Qualified Code(s): R06.02 - Shortness of breath; R06.00 - Dyspnea, unspecified; R06.01 - Orthopnea Is this a current diagnosis for this admission?: Yes Plan: Secondary to COPD exacerbation and acute on chronic CHF exacerbation. Management as above. - Time Time Spent with patient: 35 or more minutes Medications reviewed and adjusted accordingly: Yes Anticipated discharge: SNF Within: within 72 hours
[2020-02-03 14:15] LABS: ARTERIAL BLOOD H2CO3 1.44 mmol/L (1.05-1.35); ARTERIAL BLOOD HCO3 33.1 mmol/L (20-24); ARTERIAL BLOOD O2 SATURATION 95.8 % (94-98); ARTERIAL BLOOD PH 7.46 (7.35-7.45); ARTERIAL BLOOD PO2 76.4 mmHg (80-100); ARTERIAL BLOOD TOTAL CO2 34.6 mmol/L (23-27)
[2020-02-03 14:17] LABS: ARTERIAL BLOOD FIO2 5L
--- NOTE | 2020-02-03 16:25 | RADIOLOGY REPORT (SQ) ---
EXAM DESCRIPTION: CHEST SINGLE VIEW IMAGES COMPLETED DATE/TIME: 02/03/2020 4:06 pm REASON FOR STUDY: Dyspnea COMPARISON: 01/30/2020 EXAM PARAMETERS: NUMBER OF VIEWS: One view. TECHNIQUE: Single frontal radiographic view of the chest acquired. RADIATION DOSE: NA LIMITATIONS: None. FINDINGS: LUNGS AND PLEURA: Persistent small left effusion and basilar airspace disease improved fro m prior exam. No pneumothorax. MEDIASTINUM AND HILAR STRUCTURES: No masses. Contour normal. HEART AND VASCULAR STRUCTURES: Stable in appearance. BONES: No acute findings. HARDWARE: None in the chest. OTHER: No other significant finding. IMPRESSION: Residual left pleural effusion with minimal residual left basilar airspace disease. Fin dings are improved from previous exam. TECHNICAL DOCUMENTATION: JOB ID: [id number] 2010 [employer]- All Rights Reserved Reading location - IP/workstation name: [email or web address]
[2020-02-03] MEDS: ROPINIROLE HCL 0.25 MG TABLET PO SCH (17:00)
[2020-02-03] MEDS: TEMAZEPAM 7.5 MG CAPSULE PO PRN (21:06)
[2020-02-03] MEDS: ATORVASTATIN CALCIUM 40 MG TABLET PO SCH (21:06)
[2020-02-03] MEDS: OXYCODONE-ACETAMINOPHEN 5-325 MG TABLET PO PRN (21:56)
[2020-02-04] MEDS: FUROSEMIDE INJ/PF 20 MG/2 ML SDV IV SCH ×3 (05:24→21:54)
[2020-02-04] MEDS: CARBIDOPA/LEVODOPA 10-100 MG TABLET PO SCH ×3 (05:24→21:55)
[2020-02-04] MEDS ORDERED: ONDANSETRON 4 MG TAB.RAPDIS PO PRN (07:30)
[2020-02-04] MEDS: INSULIN LISPRO 100 UNIT/ML 3 ML VIAL SUBCUT SCH ×4 (08:12→22:00)
[2020-02-04] MEDS: IPRATROPIUM/ALBUTEROL 0.5-2.5 MG/3 ML AMPUL NEB SCH ×2 (08:52→20:28)
[2020-02-04] MEDS: ROPINIROLE HCL 0.25 MG TABLET PO SCH ×2 (09:45→17:18)
[2020-02-04] MEDS: GUAIFENESIN 600 MG TABLET.SA PO SCH ×2 (09:45→21:53)
[2020-02-04] MEDS: APIXABAN 5 MG TABLET PO SCH ×2 (09:45→17:18)
[2020-02-04] MEDS: ESCITALOPRAM OXALATE 10 MG TABLET PO SCH (09:45)
[2020-02-04] MEDS: PREDNISONE 20 MG TABLET PO SCH ×2 (09:45→17:18)
[2020-02-04] MEDS: DOCUSATE SODIUM 100 MG CAPSULE PO SCH (09:45)
[2020-02-04] MEDS: CARVEDILOL 12.5 MG TABLET PO SCH ×2 (09:45→21:58)
[2020-02-04] MEDS: ASPIRIN 81 MG TABLET, CHEWABLE PO SCH (09:45)
[2020-02-04] MEDS: SACUBITRIL/VALSARTAN 49 MG/51 MG TABLET PO SCH ×2 (09:46→17:18)
--- NOTE | 2020-02-04 16:41 | PDOC PROGRESS REPORT ---
Subjective Progress Note for:: 02/04/20 Subjective:: Patient was seen on morning rounds. He was found resting in bed, comfortably, on supplemental oxygen at his baseline requirement. He states he is feeling much better today; reports significant improvement in his breathing. Now using BiPAP when sleeping only and comfortable off while lying supine and talking. He denies fever, chest pain, palpitations, cough, abdominal pain, nausea and vomiting. Reports that his peripheral edema is at its baseline. He has no questions or concerns at this time. No concerns per nursing. Reason For Visit: ACUTE RESPIRATORY FAILURE Physical Exam Vital Signs: Temp Pulse Resp BP Pulse Ox 98.2 F 71 20 158/69 H 98 02/04/20 15:42 02/04/20 15:42 02/04/20 15:42 02/04/20 15:42 02/04/20 15:42 Intake & Output 02/03/20 02/04/20 02/05/20 06:59 06:59 06:59 Intake Total 1359 1906 840 Output Total 3450 3200 500 Balance -2091 -1294 340 Weight 106.6 kg 99 kg General appearance: PRESENT: no acute distress, cooperative, morbidly obese, well-developed, well-nourished Head exam: PRESENT: atraumatic, normocephalic Eye exam: PRESENT: conjunctiva pink, EOMI, PERRLA. ABSENT: scleral icterus Mouth exam: PRESENT: moist, tongue midline Neck exam: ABSENT: carotid bruit, JVD, lymphadenopathy, thyromegaly Respiratory exam: PRESENT: clear to auscultation jose, prolonged expiratory phas, symmetrical, unlabored, other - Baseline oxygen requirement. ABSENT: rales, rhonchi, wheezes Cardiovascular exam: PRESENT: irregular rhythm. ABSENT: diastolic murmur, rubs, systolic murmur Vascular exam: PRESENT: normal capillary refill GI/Abdominal exam: PRESENT: normal bowel sounds, soft. ABSENT: distended, guarding, mass, organolmegaly, rebound, tenderness Rectal exam: PRESENT: deferred Extremities exam: PRESENT: full ROM, other - Left BKA. ABSENT: calf tenderness, clubbing, pedal edema Neurological exam: PRESENT: alert, awake, oriented to person, oriented to place, oriented to time, oriented to situation, CN II-XII grossly intact. ABSENT: motor sensory deficit Psychiatric exam: PRESENT: appropriate affect, normal mood. ABSENT: homicidal ideation, suicidal ideation Skin exam: PRESENT: dry, warm, other - Chronic venous stasis changes to right lower extremity. ABSENT: cyanosis, rash Results Laboratory Results: 02/03/20 05:00 02/03/20 05:00 01/30/20 08:20 Blood Blood Culture - Final NO GROWTH IN 5 DAYS 01/30/20 08:40 Blood Blood Culture - Final NO GROWTH IN 5 DAYS 01/30/20 01/30/20 01/30/20 08:20 08:20 08:50 Creatine Kinase Cancelled CK-MB (CK-2) Cancelled 13.50 H Troponin I Cancelled 0.020 NT-Pro-B Natriuret Pep Cancelled 2560 H 01/30/20 02/03/20 08:50 05:00 Creatine Kinase 134 CK-MB (CK-2) Troponin I NT-Pro-B Natriuret Pep 4190 H Impressions: Chest X-Ray 02/03/20 00:00 IMPRESSION: Residual left pleural effusion with minimal residual left basilar airspace disease. Findings are improved from previous exam. Abdomen Ultrasound 02/03/20 10:52 IMPRESSION: NO EVIDENCE FOR ASCITES. Assessment and Plan - Diagnosis (1) Acute combined systolic (congestive) and diastolic (congestive) heart failure Is this a current diagnosis for this admission?: Yes Plan: Improved. Patient is monitored on continuous cardiac telemetry. Echocardiogram 01/05/2020 revealed LVEF 45% with mild LVH, mild diastolic dysfunction. He is placed on a cardiac diet. Fluid restricted 2 L/day. Reviewed Dr. Avila's progress note from his recent admission and have adjusted medications to reflect recommendations. Have increased carvedilol to 12.5 mg twice daily. Continue on Entresto; dose increased to 49/51 Continue aspirin and statin therapy. Continue Eliquis. Continue to diurese with IV furosemide; have increased to 20 mg IV every 8 versus the 40 mg once daily he was on previously. Continue daily weights and strict I&O's. Wt down ~8 kg; down ~6.5 L. (2) COPD exacerbation Is this a current diagnosis for this admission?: Yes Plan: Follow up CXR is benign. ABG shows chronic respiratory acidosis Patient is admitted to the medical floor on continuous cardiac telemetry. Will provide supplemental oxygen and BiPAP as needed to maintain saturations greater than 89%. Continue on scheduled and as needed nebulizer treatments. Continue prednisone; begin weaning Mucinex twice daily. Pulmonary toilet is encouraged with incentive spirometer, flutter valve (3) Diabetes Qualifiers: Diabetes mellitus type: type 2 Diabetes mellitus tank terminal gauger insulin use: without tank terminal gauger use Diabetes mellitus complication status: with hyperglycemia Qualified Code(s): E11.65 - Type 2 diabetes mellitus with hyperglycemia Is this a current diagnosis for this admission?: Yes Plan: A1c 7.0% Patient is placed on a consistent carb/cardiac diet. Accu-Cheks before meals and at bedtime with Humalog for sliding scale coverage. Hypoglycemia protocol in place. Registered dietitian clinical nurse educator consulted. Should be discharged on oral diabetic agent. (4) Hyperkalemia Is this a current diagnosis for this admission?: Yes Plan: Resolved. Possibly iatrogenic. Follow-up chemistry. (5) Pulmonary vascular congestion Is this a current diagnosis for this admission?: Yes Plan: Noted on chest imaging. Secondary to #1. Management as above. (6) HLD (hyperlipidemia) Is this a current diagnosis for this admission?: Yes Plan: Continue daily statin therapy. Cardiac diet. (7) HTN (hypertension) Qualifiers: Hypertension type: essential hypertension Qualified Code(s): I10 - Essential (primary) hypertension Is this a current diagnosis for this admission?: Yes Plan: Antihypertensives as above. Cardiac diet. (8) Dyspnea Qualifiers: Dyspnea type: shortness of breath Qualified Code(s): R06.02 - Shortness of breath; R06.00 - Dyspnea, unspecified; R06.01 - Orthopnea Is this a current diagnosis for this admission?: Yes Plan: Significantly improved. Secondary to COPD exacerbation and acute on chronic CHF exacerbation. Management as above. - Time Time Spent with patient: 25-34 minutes Medications reviewed and adjusted accordingly: Yes Anticipated discharge: SNF
[2020-02-04] MEDS: ATORVASTATIN CALCIUM 40 MG TABLET PO SCH (21:53)
[2020-02-04] MEDS: TEMAZEPAM 7.5 MG CAPSULE PO PRN (21:53)
[2020-02-05 05:09] LABS: HEMATOCRIT 36.4 % (37.9-51.0); HEMOGLOBIN 12.7 g/dL (13.5-17.0); MEAN CORPUSCULAR HEMOGLOBIN 30.6 pg (27.0-33.4); MEAN CORPUSCULAR HGB CONC 34.9 g/dL (32.0-36.0); MEAN CORPUSCULAR VOLUME 88 fl (80-97); PLATELET COUNT 225 10^3/uL (150-450); RED BLOOD COUNT 4.14 10^6/uL (4.35-5.55); RED CELL DISTRIBUTION WIDTH 14.7 % (11.5-14.0); WHITE BLOOD COUNT 9.6 10^3/uL (4.0-10.5)
[2020-02-05 05:29] LABS: BLOOD UREA NITROGEN 41 mg/dL (7-20); CALCIUM 8.2 mg/dL (8.4-10.2); GLUCOSE 164 mg/dL (75-110); POTASSIUM 4.1 mmol/L (3.6-5.0)
[2020-02-05 05:35] LABS: CARBON DIOXIDE 38 mmol/L (22-30); CHLORIDE 95 mmol/L (98-107)
[2020-02-05 05:43] LABS: ANION GAP 1 (5-19)
[2020-02-05] MEDS: FUROSEMIDE INJ/PF 20 MG/2 ML SDV IV SCH ×3 (06:02→21:17)
[2020-02-05] MEDS: CARBIDOPA/LEVODOPA 10-100 MG TABLET PO SCH ×3 (06:02→21:16)
[2020-02-05] MEDS: IPRATROPIUM/ALBUTEROL 0.5-2.5 MG/3 ML AMPUL NEB SCH ×2 (07:58→19:58)
[2020-02-05] MEDS: INSULIN LISPRO 100 UNIT/ML 3 ML VIAL SUBCUT SCH ×4 (08:06→21:17)
[2020-02-05] MEDS: APIXABAN 5 MG TABLET PO SCH ×2 (10:14→17:54)
[2020-02-05] MEDS: PREDNISONE 20 MG TABLET PO SCH ×2 (10:14→17:54)
[2020-02-05] MEDS: GUAIFENESIN 600 MG TABLET.SA PO SCH ×2 (10:14→21:16)
[2020-02-05] MEDS: CARVEDILOL 12.5 MG TABLET PO SCH ×2 (10:15→21:16)
[2020-02-05] MEDS: DOCUSATE SODIUM 100 MG CAPSULE PO SCH (10:15)
[2020-02-05] MEDS: ROPINIROLE HCL 0.25 MG TABLET PO SCH ×2 (10:15→17:55)
[2020-02-05] MEDS: ESCITALOPRAM OXALATE 10 MG TABLET PO SCH (10:15)
[2020-02-05] MEDS: ASPIRIN 81 MG TABLET, CHEWABLE PO SCH (10:15)
[2020-02-05] MEDS: SACUBITRIL/VALSARTAN 49 MG/51 MG TABLET PO SCH ×2 (10:16→17:55)
--- NOTE | 2020-02-05 18:02 | PDOC PROGRESS REPORT ---
Subjective Progress Note for:: 02/05/20 Subjective:: Patient was seen on morning rounds. He was found resting in bed, comfortably, on supplemental oxygen at his baseline requirement. He states he is feeling well today; reports significant improvement in his breathing. Now using BiPAP when sleeping only and comfortable off while lying supine and talking. Does have continue amputation stump muscle spasms. He denies fever, chest pain, palpitations, cough, abdominal pain, nausea and vomiting. Reports that his peripheral edema is at its baseline. He has no questions or concerns at this time. No concerns per nursing. Reason For Visit: ACUTE RESPIRATORY FAILURE Physical Exam Vital Signs: Temp Pulse Resp BP Pulse Ox 98.2 F 66 16 150/72 H 99 02/05/20 15:07 02/05/20 15:07 02/05/20 15:07 02/05/20 15:07 02/05/20 15:07 Intake & Output 02/04/20 02/05/20 02/06/20 06:59 06:59 06:59 Intake Total 1906 1800 486 Output Total 3200 2500 Balance -1294 -700 486 Weight 99 kg 99 kg General appearance: PRESENT: no acute distress, cooperative, obese, well-developed, well-nourished Head exam: PRESENT: atraumatic, normocephalic Eye exam: PRESENT: conjunctiva pink, EOMI, PERRLA. ABSENT: scleral icterus Mouth exam: PRESENT: moist, tongue midline Neck exam: ABSENT: carotid bruit, JVD, lymphadenopathy, thyromegaly Respiratory exam: PRESENT: clear to auscultation jose, symmetrical, unlabored, other - Baseline oxygen requirement. ABSENT: rales, rhonchi, wheezes Cardiovascular exam: PRESENT: irregular rhythm. ABSENT: diastolic murmur, rubs, systolic murmur Vascular exam: PRESENT: normal capillary refill Extremities exam: PRESENT: full ROM, other - Left BKA. ABSENT: calf tenderness, clubbing, pedal edema Neurological exam: PRESENT: alert, awake, oriented to person, oriented to place, oriented to time, oriented to situation, CN II-XII grossly intact. ABSENT: motor sensory deficit Psychiatric exam: PRESENT: appropriate affect, normal mood. ABSENT: homicidal ideation, suicidal ideation Skin exam: PRESENT: dry, warm, other - Chronic venous stasis changes right lower extremity. ABSENT: cyanosis, intact - Right lateral venous ulcer just superior to malleolus measuring approximately 1.5 cm wound with serous drainage; no surrounding erythema, rash Results Laboratory Results: 02/05/20 04:38 02/05/20 04:38 02/05/20 02/05/20 04:38 04:38 WBC 9.6 RBC 4.14 L Hgb 12.7 L Hct 36.4 L MCV 88 MCH 30.6 MCHC 34.9 RDW 14.7 H Plt Count 225 Sodium 134.0 L Potassium 4.1 Chloride 95 L Carbon Dioxide 38 H Anion Gap 1 L BUN 41 H Creatinine 0.91 Est GFR ( Amer) > 60 Glucose 164 H Calcium 8.2 L 01/30/20 01/30/20 01/30/20 08:20 08:20 08:50 Creatine Kinase Cancelled CK-MB (CK-2) Cancelled 13.50 H Troponin I Cancelled 0.020 NT-Pro-B Natriuret Pep Cancelled 2560 H 01/30/20 02/03/20 08:50 05:00 Creatine Kinase 134 CK-MB (CK-2) Troponin I NT-Pro-B Natriuret Pep 4190 H Impressions: Chest X-Ray 02/03/20 00:00 IMPRESSION: Residual left pleural effusion with minimal residual left basilar airspace disease. Findings are improved from previous exam. Abdomen Ultrasound 02/03/20 10:52 IMPRESSION: NO EVIDENCE FOR ASCITES. Assessment and Plan - Diagnosis (1) Acute combined systolic (congestive) and diastolic (congestive) heart failure Is this a current diagnosis for this admission?: Yes Plan: Continues to improve Patient is monitored on continuous cardiac telemetry. Echocardiogram 01/05/2020 revealed LVEF 45% with mild LVH, mild diastolic dysfunction. He is placed on a cardiac diet. Fluid restricted 2 L/day. Reviewed Dr. Avila's progress note from his recent admission and have adjusted medications to reflect recommendations. Have increased carvedilol to 12.5 mg twice daily. Continue on Entresto; dose increased to 49/51 Continue aspirin and statin therapy. Continue Eliquis. Continue to diurese with IV furosemide; have increased to 20 mg IV every 8 versus the 40 mg once daily he was on previously. Continue daily weights and strict I&O's. Wt down ~8 kg; down ~7 L. (2) COPD exacerbation Is this a current diagnosis for this admission?: Yes Plan: Significantly improved. Follow up CXR is benign. ABG shows chronic respiratory acidosis Patient is admitted to the medical floor on continuous cardiac telemetry. Will provide supplemental oxygen and BiPAP as needed to maintain saturations greater than 89%. Continue on scheduled and as needed nebulizer treatments. Continue prednisone; begin weaning. Mucinex twice daily. Pulmonary toilet is encouraged with incentive spirometer, flutter valve (3) Diabetes Qualifiers: Diabetes mellitus type: type 2 Diabetes mellitus lobsterman insulin use: without lobsterman use Diabetes mellitus complication status: with hyperglycemia Qualified Code(s): E11.65 - Type 2 diabetes mellitus with hyperglycemia Is this a current diagnosis for this admission?: Yes Plan: A1c 7.0% Patient is placed on a consistent carb/cardiac diet. Accu-Cheks before meals and at bedtime with Humalog for sliding scale coverage. Hypoglycemia protocol in place. Registered dietitian clinical systems educator consulted. Should be discharged on oral diabetic agent. (4) Hyperkalemia Is this a current diagnosis for this admission?: Yes Plan: Resolved. Possibly iatrogenic. Follow-up chemistry. (5) Pulmonary vascular congestion Is this a current diagnosis for this admission?: Yes Plan: Noted on chest imaging. Secondary to #1. Management as above. (6) HLD (hyperlipidemia) Is this a current diagnosis for this admission?: Yes Plan: Continue daily statin therapy. Cardiac diet. (7) HTN (hypertension) Qualifiers: Hypertension type: essential hypertension Qualified Code(s): I10 - Essential (primary) hypertension Is this a current diagnosis for this admission?: Yes Plan: Antihypertensives as above. Cardiac diet. (8) Dyspnea Qualifiers: Dyspnea type: shortness of breath Qualified Code(s): R06.02 - Shortness of breath; R06.00 - Dyspnea, unspecified; R06.01 - Orthopnea Is this a current diagnosis for this admission?: Yes Plan: Significantly improved. Secondary to COPD exacerbation and acute on chronic CHF exacerbation. Management as above. - Time Time Spent with patient: 25-34 minutes Medications reviewed and adjusted accordingly: Yes Anticipated discharge: SNF Within: within 48 hours
[2020-02-05] MEDS: TEMAZEPAM 7.5 MG CAPSULE PO PRN (21:16)
[2020-02-05] MEDS: ATORVASTATIN CALCIUM 40 MG TABLET PO SCH (21:17)
[2020-02-05] MEDS ORDERED: TUBERCULIN,PURIF.PROT.DERIV. 5 TU/0.1 ML TEST 1 ML VIAL ID ONE (22:00)
[2020-02-05] MEDS: OXYCODONE-ACETAMINOPHEN 5-325 MG TABLET PO PRN (22:16)
[2020-02-06] MEDS: FUROSEMIDE INJ/PF 20 MG/2 ML SDV IV SCH ×2 (06:09→13:39)
[2020-02-06] MEDS: CARBIDOPA/LEVODOPA 10-100 MG TABLET PO SCH ×3 (06:09→21:22)
[2020-02-06] MEDS: INSULIN LISPRO 100 UNIT/ML 3 ML VIAL SUBCUT SCH ×4 (08:40→21:21)
[2020-02-06] MEDS: IPRATROPIUM/ALBUTEROL 0.5-2.5 MG/3 ML AMPUL NEB SCH ×2 (08:44→20:01)
[2020-02-06] MEDS: PREDNISONE 20 MG TABLET PO SCH (10:52)
[2020-02-06] MEDS: ASPIRIN 81 MG TABLET, CHEWABLE PO SCH (10:52)
[2020-02-06] MEDS: CARVEDILOL 12.5 MG TABLET PO SCH ×2 (10:52→21:20)
[2020-02-06] MEDS: DOCUSATE SODIUM 100 MG CAPSULE PO SCH (10:52)
[2020-02-06] MEDS: ROPINIROLE HCL 0.25 MG TABLET PO SCH ×2 (10:53→17:06)
[2020-02-06] MEDS: ESCITALOPRAM OXALATE 10 MG TABLET PO SCH (10:53)
[2020-02-06] MEDS: APIXABAN 5 MG TABLET PO SCH ×2 (10:53→17:06)
[2020-02-06] MEDS: GUAIFENESIN 600 MG TABLET.SA PO SCH ×2 (10:53→21:21)
[2020-02-06] MEDS: SACUBITRIL/VALSARTAN 49 MG/51 MG TABLET PO SCH ×2 (10:53→17:06)
[2020-02-06] MEDS: FUROSEMIDE 40 MG TABLET PO SCH (17:06)
--- NOTE | 2020-02-06 18:35 | PDOC PROGRESS REPORT ---
Subjective Progress Note for:: 02/06/20 Subjective:: Patient was seen on afternoon rounds. He was found resting in bed, comfortably, on supplemental oxygen at his baseline requirement. He states he is feeling well today; overall breathing has improved. Now using BiPAP when sleeping at night only. Comfortable off while lying supine and talking on baseline oxygen. He denies fever, chest pain, palpitations, cough, abdominal pain, nausea and vomiting. He has no questions or concerns at this time. No concerns per nursing. Reason For Visit: ACUTE RESPIRATORY FAILURE Physical Exam Vital Signs: Temp Pulse Resp BP Pulse Ox 98.1 F 63 18 134/50 H 99 02/06/20 10:40 02/06/20 10:40 02/06/20 10:40 02/06/20 10:40 02/06/20 10:40 Intake & Output 02/05/20 02/06/20 02/07/20 06:59 06:59 06:59 Intake Total 1800 1457 236 Output Total 2500 Balance -700 1457 236 Weight 99 kg 99.2 kg General appearance: PRESENT: no acute distress, cooperative, obese, well-develo ped, well-nourished Head exam: PRESENT: atraumatic, normocephalic Eye exam: PRESENT: conjunctiva pink, EOMI, PERRLA. ABSENT: scleral icterus Mouth exam: PRESENT: moist, tongue midline Respiratory exam: PRESENT: clear to auscultation jose, symmetrical, unlabored, other - Baseline oxygen requirement. ABSENT: rales, rhonchi, wheezes Cardiovascular exam: PRESENT: irregular rhythm. ABSENT: diastolic murmur, rubs, systolic murmur Vascular exam: PRESENT: normal capillary refill Extremities exam: PRESENT: full ROM, other - Left BKA. ABSENT: calf tenderness, clubbing, pedal edema Neurological exam: PRESENT: alert, awake, oriented to person, oriented to place, oriented to time, oriented to situation, CN II-XII grossly intact. ABSENT: motor sensory deficit Psychiatric exam: PRESENT: appropriate affect, normal mood. ABSENT: homicidal ideation, suicidal ideation Skin exam: PRESENT: dry, intact, warm. ABSENT: cyanosis, rash Results Laboratory Results: 02/05/20 04:38 02/05/20 04:38 01/30/20 01/30/20 01/30/20 08:20 08:20 08:50 Creatine Kinase Cancelled CK-MB (CK-2) Cancelled 13.50 H Troponin I Cancelled 0.020 NT-Pro-B Natriuret Pep Cancelled 2560 H 01/30/20 02/03/20 08:50 05:00 Creatine Kinase 134 CK-MB (CK-2) Troponin I NT-Pro-B Natriuret Pep 4190 H Impressions: Chest X-Ray 02/03/20 00:00 IMPRESSION: Residual left pleural effusion with minimal residual left basilar airspace disease. Findings are improved from previous exam. Abdomen Ultrasound 02/03/20 10:52 IMPRESSION: NO EVIDENCE FOR ASCITES. Assessment and Plan - Diagnosis (1) Acute combined systolic (congestive) and diastolic (congestive) heart failure Is this a current diagnosis for this admission?: Yes Plan: Continues to improve Patient is monitored on continuous cardiac telemetry. Echocardiogram 01/05/2020 revealed LVEF 45% with mild LVH, mild diastolic dysfunction. He is placed on a cardiac diet. Fluid restricted 2 L/day. Reviewed Dr. Avila's progress note from his recent admission and have adjusted medications to reflect recommendations. Have increased carvedilol to 12.5 mg twice daily. Continue on Entresto; dose increased to 49/51 Continue aspirin and statin therapy. Continue Eliquis. Transition to p.o. furosemide today Continue daily weights and strict I&O's. Wt down ~8 kg; down ~7.5 L. (2) COPD exacerbation Is this a current diagnosis for this admission?: Yes Plan: Significantly improved. Follow up CXR is benign. ABG shows chronic respiratory acidosis Patient is admitted to the medical floor on continuous cardiac telemetry. Will provide supplemental oxygen and BiPAP as needed to maintain saturations greater than 89%. Continue on scheduled and as needed nebulizer treatments. Continue prednisone; continue weaning. Mucinex twice daily. Pulmonary toilet is encouraged with incentive spirometer, flutter valve (3) Diabetes Qualifiers: Diabetes mellitus type: type 2 Diabetes mellitus longwall machine operator helper insulin use: without retirement use Diabetes mellitus complication status: with hyperglycemia Qualified Code(s): E11.65 - Type 2 diabetes mellitus with hyperglycemia Is this a current diagnosis for this admission?: Yes Plan: A1c 7.0% Patient is placed on a consistent carb/cardiac diet. Accu-Cheks before meals and at bedtime with Humalog for sliding scale coverage. Hypoglycemia protocol in place. Registered dietitian field crew chief consulted. Should be discharged on oral diabetic agent. (4) Hyperkalemia Is this a current diagnosis for this admission?: Yes Plan: Resolved. Possibly iatrogenic. Follow-up chemistry. (5) Pulmonary vascular congestion Is this a current diagnosis for this admission?: Yes Plan: Noted on chest imaging. Secondary to #1. Management as above. (6) HLD (hyperlipidemia) Is this a current diagnosis for this admission?: Yes Plan: Continue daily statin therapy. Cardiac diet. (7) HTN (hypertension) Qualifiers: Hypertension type: essential hypertension Qualified Code(s): I10 - Essential (primary) hypertension Is this a current diagnosis for this admission?: Yes Plan: Antihypertensives as above. Cardiac diet. (8) Dyspnea Qualifiers: Dyspnea type: shortness of breath Qualified Code(s): R06.02 - Shortness of breath; R06.00 - Dyspnea, unspecified; R06.01 - Orthopnea Is this a current diagnosis for this admission?: Yes Plan: Significantly improved. Secondary to COPD exacerbation and acute on chronic CHF exacerbation. Management as above. - Time Time Spent with patient: 25-34 minutes Medications reviewed and adjusted accordingly: Yes Anticipated discharge: SNF Within: when bed available
[2020-02-06] MEDS ORDERED: OXYCODONE-ACETAMINOPHEN 5-325 MG TABLET PO PRN (20:25)
[2020-02-06] MEDS: TEMAZEPAM 7.5 MG CAPSULE PO PRN (21:20)
[2020-02-06] MEDS: ATORVASTATIN CALCIUM 40 MG TABLET PO SCH (21:21)
[2020-02-07] MEDS: CARBIDOPA/LEVODOPA 10-100 MG TABLET PO SCH ×3 (05:54→21:24)
[2020-02-07 06:20] LABS: BLOOD UREA NITROGEN 48 mg/dL (7-20); CALCIUM 7.9 mg/dL (8.4-10.2); CARBON DIOXIDE 34 mmol/L (22-30); CHLORIDE 96 mmol/L (98-107); GLUCOSE 177 mg/dL (75-110); POTASSIUM 4.1 mmol/L (3.6-5.0)
[2020-02-07 06:22] LABS: ANION GAP 4 (5-19)
[2020-02-07] MEDS: INSULIN LISPRO 100 UNIT/ML 3 ML VIAL SUBCUT SCH ×4 (07:54→21:25)
[2020-02-07] MEDS: IPRATROPIUM/ALBUTEROL 0.5-2.5 MG/3 ML AMPUL NEB SCH ×2 (08:13→19:53)
[2020-02-07] MEDS: ASPIRIN 81 MG TABLET, CHEWABLE PO SCH (09:22)
[2020-02-07] MEDS: ROPINIROLE HCL 0.25 MG TABLET PO SCH (09:22)
[2020-02-07] MEDS: ESCITALOPRAM OXALATE 10 MG TABLET PO SCH (09:22)
[2020-02-07] MEDS: SACUBITRIL/VALSARTAN 49 MG/51 MG TABLET PO SCH ×2 (09:23→17:23)
[2020-02-07] MEDS: APIXABAN 5 MG TABLET PO SCH ×2 (09:23→17:23)
[2020-02-07] MEDS: FUROSEMIDE 40 MG TABLET PO SCH ×2 (09:23→17:23)
[2020-02-07] MEDS: GUAIFENESIN 600 MG TABLET.SA PO SCH ×2 (09:23→21:24)
[2020-02-07] MEDS: DOCUSATE SODIUM 100 MG CAPSULE PO SCH (09:23)
[2020-02-07] MEDS: CARVEDILOL 12.5 MG TABLET PO SCH ×2 (09:24→21:24)
[2020-02-07] MEDS ORDERED: PREDNISONE 20 MG TABLET PO SCH (10:00)
--- NOTE | 2020-02-07 13:50 | PDOC PROGRESS REPORT ---
Subjective Progress Note for:: 02/07/20 Subjective:: Patient was seen on morning rounds. He was found resting in bed, comfortably, on supplemental oxygen at his baseline requirement. He was sleeping but woke easily when I said his name. Reports his dyspnea is significantly improved. Reports that he Lt BKA stump muscle twitching is also improved; continued frequency but decreased intensity. He denies fever, chest pain, palpitations, cough, abdominal pain, nausea and vomiting. He has no questions or concerns at this time. No concerns per nursing. Reason For Visit: ACUTE RESPIRATORY FAILURE Physical Exam Vital Signs: Temp Pulse Resp BP Pulse Ox 98.2 F 65 18 135/57 H 100 02/07/20 11:15 02/07/20 11:15 02/07/20 11:15 02/07/20 11:15 02/07/20 11:15 Intake & Output 02/06/20 02/07/20 02/08/20 06:59 06:59 06:59 Intake Total 1457 1740 Output Total 650 Balance 1457 1090 Weight 99.2 kg 98.7 kg General appearance: PRESENT: no acute distress, cooperative, well-developed, well-nourished - overweight Head exam: PRESENT: atraumatic, normocephalic Eye exam: PRESENT: conjunctiva pink, EOMI, PERRLA. ABSENT: scleral icterus Mouth exam: PRESENT: moist, tongue midline Respiratory exam: PRESENT: clear to auscultation jose, symmetrical, unlabored, other - baseline oxygen requirement. ABSENT: rales, rhonchi, wheezes Cardiovascular exam: PRESENT: RRR, +S1, +S2. ABSENT: diastolic murmur, rubs, systolic murmur Vascular exam: PRESENT: normal capillary refill Extremities exam: PRESENT: full ROM, other - Lt BKA. ABSENT: calf tenderness, clubbing, pedal edema Neurological exam: PRESENT: alert, awake, oriented to person, oriented to place, oriented to time, oriented to situation, CN II-XII grossly intact. ABSENT: motor sensory deficit Psychiatric exam: PRESENT: appropriate affect, normal mood. ABSENT: homicidal ideation, suicidal ideation Skin exam: PRESENT: dry, intact, warm. ABSENT: cyanosis, rash Results Laboratory Results: 02/05/20 04:38 02/07/20 04:54 02/07/20 04:54 Sodium 133.9 L Potassium 4.1 Chloride 96 L Carbon Dioxide 34 H Anion Gap 4 L BUN 48 H Creatinine 1.02 Est GFR ( Amer) > 60 Glucose 177 H Calcium 7.9 L 01/30/20 01/30/20 01/30/20 08:20 08:20 08:50 Creatine Kinase Cancelled CK-MB (CK-2) Cancelled 13.50 H Troponin I Cancelled 0.020 NT-Pro-B Natriuret Pep Cancelled 2560 H 01/30/20 02/03/20 08:50 05:00 Creatine Kinase 134 CK-MB (CK-2) Troponin I NT-Pro-B Natriuret Pep 4190 H Impressions: Chest X-Ray 02/03/20 00:00 IMPRESSION: Residual left pleural effusion with minimal residual left basilar airspace disease. Findings are improved from previous exam. Abdomen Ultrasound 02/03/20 10:52 IMPRESSION: NO EVIDENCE FOR ASCITES. Assessment and Plan - Diagnosis (1) Acute combined systolic (congestive) and diastolic (congestive) heart failure Is this a current diagnosis for this admission?: Yes Plan: Acute exacerbation has resolved. Patient is monitored on continuous cardiac telemetry. Echocardiogram 01/05/2020 revealed LVEF 45% with mild LVH, mild diastolic dysfunction. He is placed on a cardiac diet. Fluid restricted 2 L/day. Reviewed Dr. Avila's progress note from his recent admission and have adjusted medications to reflect recommendations. Continue carvedilol to 12.5 mg twice daily. Continue on Entresto; dose increased to 49/51. Tolerating well. Continue aspirin and statin therapy. Continue Eliquis. Continue p.o. furosemide today Continue daily weights and strict I&O's. Wt down ~9 kg (2) COPD exacerbation Is this a current diagnosis for this admission?: Yes Plan: Significantly improved. Follow up CXR is benign. ABG shows chronic respiratory acidosis Patient is admitted to the medical floor on continuous cardiac telemetry. Will provide supplemental oxygen and BiPAP as needed to maintain saturations greater than 89%. Continue on scheduled and as needed nebulizer treatments. Have weaned from steroids. Mucinex twice daily. Pulmonary toilet is encouraged with incentive spirometer, flutter valve (3) Diabetes Qualifiers: Diabetes mellitus type: type 2 Diabetes mellitus alf insulin use: without alf use Diabetes mellitus complication status: with hyperglycemia Qualified Code(s): E11.65 - Type 2 diabetes mellitus with hyperglycemia Is this a current diagnosis for this admission?: Yes Plan: A1c 7.0% Patient is placed on a consistent carb/cardiac diet. Accu-Cheks before meals and at bedtime with Humalog for sliding scale coverage. Hypoglycemia protocol in place. Registered dietitian rubber engraver consulted. Should be discharged on oral diabetic agent. (4) Hyperkalemia Is this a current diagnosis for this admission?: Yes Plan: Resolved. Possibly iatrogenic. Follow-up chemistry. (5) Pulmonary vascular congestion Is this a current diagnosis for this admission?: Yes Plan: Noted on chest imaging. Secondary to #1. Management as above. (6) HLD (hyperlipidemia) Is this a current diagnosis for this admission?: Yes Plan: Continue daily statin therapy. Cardiac diet. (7) HTN (hypertension) Qualifiers: Hypertension type: essential hypertension Qualified Code(s): I10 - Essential (primary) hypertension Is this a current diagnosis for this admission?: Yes Plan: Antihypertensives as above. Cardiac diet. (8) Dyspnea Qualifiers: Dyspnea type: shortness of breath Qualified Code(s): R06.02 - Shortness of breath; R06.00 - Dyspnea, unspecified; R06.01 - Orthopnea Is this a current diagnosis for this admission?: Yes Plan: Significantly improved. Secondary to COPD exacerbation and acute on chronic CHF exacerbation. Management as above. - Time Time Spent with patient: 25-34 minutes Medications reviewed and adjusted accordingly: Yes Anticipated discharge: SNF Within: when bed available
[2020-02-07] MEDS: OXYCODONE-ACETAMINOPHEN 5-325 MG TABLET PO PRN ×2 (13:52→20:34)
[2020-02-07] MEDS: ROPINIROLE HCL 1 MG TABLET PO SCH (17:23)
[2020-02-07] MEDS ORDERED: ROPINIROLE HCL 0.25 MG TABLET PO SCH (18:00)
[2020-02-07] MEDS: TEMAZEPAM 7.5 MG CAPSULE PO PRN (20:34)
[2020-02-07] MEDS: ATORVASTATIN CALCIUM 40 MG TABLET PO SCH (21:24)
[2020-02-08] MEDS: CARBIDOPA/LEVODOPA 10-100 MG TABLET PO SCH ×3 (05:09→21:12)
[2020-02-08] MEDS: OXYCODONE-ACETAMINOPHEN 5-325 MG TABLET PO PRN ×2 (05:09→21:11)
[2020-02-08] MEDS: IPRATROPIUM/ALBUTEROL 0.5-2.5 MG/3 ML AMPUL NEB SCH ×2 (07:56→20:14)
[2020-02-08] MEDS: INSULIN LISPRO 100 UNIT/ML 3 ML VIAL SUBCUT SCH ×4 (08:28→21:11)
[2020-02-08] MEDS: CARVEDILOL 12.5 MG TABLET PO SCH ×2 (09:27→21:11)
[2020-02-08] MEDS: GUAIFENESIN 600 MG TABLET.SA PO SCH ×2 (09:27→21:12)
[2020-02-08] MEDS: ASPIRIN 81 MG TABLET, CHEWABLE PO SCH (09:27)
[2020-02-08] MEDS: DOCUSATE SODIUM 100 MG CAPSULE PO SCH (09:27)
[2020-02-08] MEDS: APIXABAN 5 MG TABLET PO SCH ×2 (09:28→18:06)
[2020-02-08] MEDS: SACUBITRIL/VALSARTAN 49 MG/51 MG TABLET PO SCH ×2 (09:28→18:06)
[2020-02-08] MEDS: ESCITALOPRAM OXALATE 10 MG TABLET PO SCH (09:28)
[2020-02-08] MEDS: ROPINIROLE HCL 1 MG TABLET PO SCH ×2 (09:29→18:07)
[2020-02-08] MEDS: FUROSEMIDE 40 MG TABLET PO SCH ×2 (09:29→18:03)
--- NOTE | 2020-02-08 16:28 | PDOC TRANSFER SUMMARY ---
Impression - Admit/DC Date/PCP Admission Date/Primary Care Provider: 01/30/20 11:59 Discharge Date: 02/09/20 - Discharge Diagnosis (1) Acute combined systolic (congestive) and diastolic (congestive) heart failure Is this a current diagnosis for this admission?: Yes (2) COPD exacerbation Is this a current diagnosis for this admission?: Yes (3) Diabetes Is this a current diagnosis for this admission?: Yes (4) Hyperkalemia Is this a current diagnosis for this admission?: Yes (5) Pulmonary vascular congestion Is this a current diagnosis for this admission?: Yes (6) HLD (hyperlipidemia) Is this a current diagnosis for this admission?: Yes (7) HTN (hypertension) Is this a current diagnosis for this admission?: Yes (8) Dyspnea Is this a current diagnosis for this admission?: Yes (9) Restless leg syndrome Is this a current diagnosis for this admission?: Yes - Additional Information Resuscitation Status: Full Code Discharge Diet: Cardiac, Diabetic Discharge Activity: Activity As Tolerated, Balance Activity w/Rest, Weigh Daily Referrals: FILEMON DENT MD [COMMUNITY BASED STAFF] - Prescriptions: Carvedilol [Coreg 12.5 mg Tablet] 12.5 mg PO Q12 #60 tablet Ipratropium/Albuterol Sulfate [Duoneb 3 ml Ampul] 3 ml NEB RTQ12 #60 vial.neb Sacubitril/Valsartan [Entresto 49 mg/51 mg Tablet] 1 tab PO BID #60 tablet Furosemide [Lasix 40 mg Tablet] 40 mg PO BID #60 tablet Metformin HCl 500 mg PO BIDACBSP PRN #60 tablet PRN Reason: Guaifenesin [Mucinex Sr 600 mg Tablet.sa] 600 mg PO Q12 #14 tablet.sa Oxycodone HCl/Acetaminophen [Percocet 5-325 mg Tablet] 1 tab PO Q12HP PRN #10 tablet PRN Reason: Ropinirole HCl [Requip 0.25 Mg Tablet] 0.5 mg PO Q8 #90 tablet Temazepam [Restoril 7.5 mg Capsule] 7.5 mg PO HSP PRN #30 capsule PRN Reason: Home Medications: Albuterol Sulfate [Proair HFA Inhalation Aerosol 8.5 gm MDI] 2 puff IH Q4HP PRN #1 hfa.aer.ad 01/11/20 Apixaban [Eliquis 5 mg Tablet] 5 mg PO BID #60 tablet 01/11/20 Aspirin [Aspirin 81 mg Chewable Tablet] 81 mg PO DAILY #30 tab.chew 01/11/20 Atorvastatin Calcium [Lipitor 40 mg Tablet] 40 mg PO QHS #30 tablet 01/11/20 Carbidopa/Levodopa [Sinemet 10-100 mg Tablet] 1 tab PO Q8 #90 tablet 01/11/20 Escitalopram Oxalate [Lexapro 10 mg Tablet] 10 mg PO DAILY #30 tablet 01/11/20 Acetaminophen [Tylenol 325 mg Tablet] 650 mg PO Q4HP PRN tablet 02/08/20 Carvedilol [Coreg 12.5 mg Tablet] 12.5 mg PO Q12 #60 tablet 02/08/20 Docusate Sodium [Colace 100 mg Capsule] 100 mg PO DAILY capsule 02/08/20 Furosemide [Lasix 40 mg Tablet] 40 mg PO BID #60 tablet 02/08/20 Guaifenesin [Mucinex Sr 600 mg Tablet.sa] 600 mg PO Q12 #14 tablet.sa 02/08/20 Ipratropium/Albuterol Sulfate [Duoneb 3 ml Ampul] 3 ml NEB RTQ12 #60 vial.neb 02/08/20 Metformin HCl 500 mg PO BIDACBSP PRN #60 tablet 02/08/20 Oxycodone HCl/Acetaminophen [Percocet 5-325 mg Tablet] 1 tab PO Q12HP PRN #10 tablet 02/08/20 Ropinirole HCl [Requip 0.25 Mg Tablet] 0.5 mg PO Q8 #90 tablet 02/08/20 Sacubitril/Valsartan [Entresto 49 mg/51 mg Tablet] 1 tab PO BID #60 tablet 02/08/20 Temazepam [Restoril 7.5 mg Capsule] 7.5 mg PO HSP PRN #30 capsule 02/08/20 History of Present Illiness History of Present Illness: Per H&P by Dr. Rojas: CHERELLE VALDIVIA is a 59 year old male Patient presents emergency room complaint of difficulty breathing and shortness of breath associated with a cough which started on January 28. He was recently discharged from the hospital on January 11 and at that time he had been COVID negative. He was seen in the ED on January 25 for shortness of breath and he was subsequently discharged from the ED. He comes again today with the same complaints. Was treated with Solu-Medrol and bronchodilators and it appears that attempts to stabilize him and send him home failed and so he had to be placed on BiPAP. His breathing apparently improved on BiPAP and so he is being admitted for further evaluation and management. Is still remains on BiPAP at this time chest x-ray shows mild pulmonary vascular congestion without pulmonary edema and EKG shows a sinus rhythm grossly unchanged from previous rate he had a brief episode of hypoxia. His white count is within normal. He is sodium is a tad elevated at 5.5 and he appears to be slightly azotemic otherwise his BNP is 2560 which is actually the lowest is been on record Hospital Course Hospital Course: (1) Acute combined systolic (congestive) and diastolic (congestive) heart failure Acute exacerbation has resolved. Patient is monitored on continuous cardiac telemetry. Echocardiogram 01/05/2020 revealed LVEF 45% with mild LVH, mild diastolic dysfunction. Reviewed Dr. Avila's progress note from his recent admission and have adjusted medications to reflect recommendations. Continue carvedilol to 12.5 mg twice daily. Continue on Entresto; dose increased to 49/51. Tolerating well. Continue aspirin and statin therapy. Continue Eliquis. Continue p.o. furosemide Continue daily weights. (2) COPD exacerbation Resolved. Follow up CXR is benign. ABG shows chronic respiratory acidosis Patient was admitted to the medical floor on continuous cardiac telemetry and provided supplemental oxygen, BiPAP, scheduled/prn nebulizer treatments, Mucinex, and steroid therapy. Pulmonary toilet is encouraged with incentive spirometer, flutter valve (3) Diabetes A1c 7.0% Patient is placed on a consistent carb/cardiac diet. Registered dietitian and coding educator were consulted. Sliding scale insulin while admitted; discharged on Metformin. (4) Hyperkalemia Resolved. (5) Pulmonary vascular congestion Noted on chest imaging. Secondary to #1. Management as above. (6) HLD (hyperlipidemia) Continue daily statin therapy. Cardiac diet. (7) HTN (hypertension) Antihypertensives as above. Cardiac diet. (8) Dyspnea Resolved; now at baseline function per patient. Secondary to COPD exacerbation and acute on chronic CHF exacerbation. Management as above. (9) Restless leg syndrome Improved with Requip. Physical Exam Vital Signs: Temp Pulse Resp BP Pulse Ox 98.0 F 63 12 143/64 H 97 02/08/20 10:37 02/08/20 14:00 02/08/20 10:37 02/08/20 10:37 02/08/20 10:37 Intake & Output 02/07/20 02/08/20 02/09/20 06:59 06:59 06:59 Intake Total 1740 740 457 Output Total 650 Balance 1090 740 457 Weight 98.7 kg 102.2 kg General appearance: PRESENT: no acute distress, cooperative, disheveled, obese, well-developed, well-nourished Head exam: PRESENT: atraumatic, normocephalic Eye exam: PRESENT: conjunctiva pink, EOMI, PERRLA. ABSENT: scleral icterus Mouth exam: PRESENT: moist, tongue midline Neck exam: ABSENT: carotid bruit, JVD, lymphadenopathy, thyromegaly Respiratory exam: PRESENT: clear to auscultation jose, symmetrical, unlabored, other - baseline oxygen requirement. ABSENT: rales, rhonchi, wheezes Cardiovascular exam: PRESENT: RRR. ABSENT: diastolic murmur, rubs, systolic murmur Vascular exam: PRESENT: normal capillary refill GI/Abdominal exam: PRESENT: normal bowel sounds, soft, other - obese. ABSENT: distended, guarding, mass, organolmegaly, rebound, tenderness Rectal exam: PRESENT: deferred Extremities exam: PRESENT: full ROM, +1 edema - RLE, other - Lt BKA. ABSENT: calf tenderness, clubbing, pedal edema Neurological exam: PRESENT: alert, awake, oriented to person, oriented to place, oriented to time, oriented to situation, CN II-XII grossly intact. ABSENT: motor sensory deficit Psychiatric exam: PRESENT: appropriate affect, normal mood. ABSENT: homicidal ideation, suicidal ideation Skin exam: PRESENT: dry, intact, warm. ABSENT: cyanosis, rash Results Laboratory Results: WBC 9.6 10^3/uL (4.0-10.5) 02/05/20 04:38 RBC 4.14 10^6/uL (4.35-5.55) L 02/05/20 04:38 Hgb 12.7 g/dL (13.5-17.0) L 02/05/20 04:38 Hct 36.4 % (37.9-51.0) L 02/05/20 04:38 MCV 88 fl (80-97) 02/05/20 04:38 MCH 30.6 pg (27.0-33.4) 02/05/20 04:38 MCHC 34.9 g/dL (32.0-36.0) 02/05/20 04:38 RDW 14.7 % (11.5-14.0) H 02/05/20 04:38 Plt Count 225 10^3/uL (150-450) 02/05/20 04:38 Lymph % (Auto) 10.9 % (13-45) L 02/02/20 04:53 [place] % (Auto) 6.6 % (3-13) 02/02/20 04:53 Eos % (Auto) 0.2 % (0-6) 02/02/20 04:53 Baso % (Auto) 0.5 % (0-2) 02/02/20 04:53 Absolute Neuts (auto) 7.0 10^3/uL (1.7-8.2) 02/02/20 04:53 Absolute Lymphs (auto) 0.9 10^3/uL (0.5-4.7) 02/02/20 04:53 Absolute Monos (auto) 0.6 10^3/uL (0.1-1.4) 02/02/20 04:53 Absolute Eos (auto) 0.0 10^3/uL (0.0-0.6) 02/02/20 04:53 Absolute Basos (auto) 0.0 10^3/uL (0.0-0.2) 02/02/20 04:53 Seg Neutrophils % 81.8 % (42-78) H 02/02/20 04:53 PT 14.3 SEC (11.4-15.4) 02/03/20 11:10 INR 1.10 02/03/20 11:10 APTT 27.3 SEC (23.5-35.8) 02/03/20 11:10 Carbonic Acid 1.44 mmol/L (1.05-1.35) H 02/03/20 14:08 HCO3/H2CO3 Ratio 22:1 02/03/20 14:08 ABG pH 7.46 (7.35-7.45) H 02/03/20 14:08 ABG pCO2 48.0 mmHg (35-45) H 02/03/20 14:08 ABG pO2 76.4 mmHg (80-100) L 02/03/20 14:08 ABG HCO3 33.1 mmol/L (20-24) H 02/03/20 14:08 ABG Total CO2 34.6 mmol/L (23-27) H 02/03/20 14:08 ABG O2 Saturation 95.8 % (94-98) 02/03/20 14:08 ABG Base Excess 8.0 mmol/L 02/03/20 14:08 FiO2 5L 02/03/20 14:08 Sodium 133.9 mmol/L (137-145) L 02/07/20 04:54 Potassium 4.1 mmol/L (3.6-5.0) 02/07/20 04:54 Chloride 96 mmol/L (98-107) L 02/07/20 04:54 Carbon Dioxide 34 mmol/L (22-30) H 02/07/20 04:54 Anion Gap 4 (5-19) L 02/07/20 04:54 BUN 48 mg/dL (7-20) H 02/07/20 04:54 Creatinine 1.02 mg/dL (0.52-1.25) 02/07/20 04:54 Est GFR ( Amer) > 60 (>60) 02/07/20 04:54 Est GFR (Non-Af Amer) Cancelled 01/30/20 08:20 Est GFR (MDRD) Non-Af > 60 (>60) 02/07/20 04:54 Glucose 177 mg/dL (75-110) H 02/07/20 04:54 POC Glucose 201 mg/dL (70-110) H 02/08/20 15:36 Calcium 7.9 mg/dL (8.4-10.2) L 02/07/20 04:54 Total Bilirubin 0.3 mg/dL (0.2-1.3) 01/30/20 08:50 Direct Bilirubin 0.0 mg/dL (0.0-0.4) 01/30/20 08:50 Neonat Total Bilirubin Not Reportable 01/30/20 08:50 Neonat Direct Bilirubin Not Reportable 01/30/20 08:50 Neonat Indirect Bili Not Reportable 01/30/20 08:50 AST 21 U/L (17-59) 01/30/20 08:50 ALT 26 U/L (<50) 01/30/20 08:50 Alkaline Phosphatase 146 U/L (38-126) H 01/30/20 08:50 Creatine Kinase 134 U/L (55-170) 01/30/20 08:50 CK-MB (CK-2) 13.50 ng/mL (<4.55) H 01/30/20 08:50 Troponin I 0.020 ng/mL 01/30/20 08:50 NT-Pro-B Natriuret Pep 4190 pg/mL (<125) H 02/03/20 05:00 Total Protein 6.1 g/dL (6.3-8.2) L 01/30/20 08:50 Albumin 3.0 g/dL (3.5-5.0) L 01/30/20 08:50 EGFR Cancelled 01/30/20 08:20 Urine Color YELLOW 01/30/20 10:29 Urine Appearance CLEAR 01/30/20 10:29 Urine pH 5.0 (5.0-9.0) 01/30/20 10:29 Ur Specific [place] 1.016 01/30/20 10:29 Urine Protein >=500 mg/dL (NEGATIVE) H 01/30/20 10:29 Urine Glucose (UA) 150 mg/dL (NEGATIVE) H 01/30/20 10:29 Urine Ketones NEGATIVE mg/dL (NEGATIVE) 01/30/20 10:29 Urine Blood SMALL (NEGATIVE) H 01/30/20 10:29 Urine Nitrite NEGATIVE (NEGATIVE) 01/30/20 10:29 Urine Bilirubin NEGATIVE (NEGATIVE) 01/30/20 10:29 Urine Urobilinogen NEGATIVE mg/dL (<2.0) 01/30/20 10:29 Ur Leukocyte Esterase NEGATIVE (NEGATIVE) 01/30/20 10:29 Urine WBC (Auto) 1 /HPF 01/30/20 10:29 Urine RBC (Auto) 2 /HPF 01/30/20 10:29 U Hyaline Cast (Auto) 1 /LPF 01/30/20 10:29 Urine Mucus (Auto) RARE /LPF 01/30/20 10:29 Urine Ascorbic Acid NEGATIVE (NEGATIVE) 01/30/20 10:29 SARS-CoV-2 (PCR) NEGATIVE (NEGATIVE) 01/30/20 13:11 01/30/20 01/30/20 02/03/20 08:20 08:50 05:00 CK-MB (CK-2) Cancelled 13.50 H Troponin I Cancelled 0.020 NT-Pro-B Natriuret Pep Cancelled 2560 H 4190 H Impressions: Chest X-Ray 01/30/20 07:47 IMPRESSION: Persistent blunting left lateral costophrenic sulcus, similar compared to 01/26/2020 from trace residual pleural fluid/ pleural thickening Chest X-Ray 02/03/20 00:00 IMPRESSION: Residual left pleural effusion with minimal residual left basilar airspace disease. Findings are improved from previous exam. Abdomen Ultrasound 02/03/20 10:52 IMPRESSION: NO EVIDENCE FOR ASCITES. Plan Plan of Treatment: Patient is discharged to SNF in stable condition. He is instructed to follow-up with his primary care provider within 1 week. Follow up with Dr. Avila, cardiology, in 2-4 weeks. Take medication as prescribed. Eat a heart healthy diet. Do NOT smoke. Wear BiPAP nightly and as needed. Return to emergency department as needed for concerning symptoms. Time Spent: Greater than 30 Minutes Stroke Is this a Stroke Patient?: No Acute Heart Failure - Is this a Heart Failure Patient?: Yes Documentation of LVEF assessment?: Yes LVEF: LVEF Greater Than 40% Anticoagulant Therapy: Yes Discharged on Evidence-Based Beta Blockers: Yes Discharged on ARNI?: Yes For LVEF <35%, discharged on Aldosterone Antagonist?: N/A (LVEF > or = 35%)
[2020-02-08] MEDS: ATORVASTATIN CALCIUM 40 MG TABLET PO SCH (21:11)
[2020-02-09] MEDS: OXYCODONE-ACETAMINOPHEN 5-325 MG TABLET PO PRN (03:21)
[2020-02-09] MEDS: CARBIDOPA/LEVODOPA 10-100 MG TABLET PO SCH ×2 (06:19→13:14)
[2020-02-09] MEDS: INSULIN LISPRO 100 UNIT/ML 3 ML VIAL SUBCUT SCH ×2 (07:33→11:58)
[2020-02-09] MEDS: IPRATROPIUM/ALBUTEROL 0.5-2.5 MG/3 ML AMPUL NEB SCH (07:57)
[2020-02-09] MEDS: ROPINIROLE HCL 1 MG TABLET PO SCH (09:30)
[2020-02-09] MEDS: ESCITALOPRAM OXALATE 10 MG TABLET PO SCH (09:30)
[2020-02-09] MEDS: DOCUSATE SODIUM 100 MG CAPSULE PO SCH (09:30)
[2020-02-09] MEDS: APIXABAN 5 MG TABLET PO SCH (09:30)
[2020-02-09] MEDS: GUAIFENESIN 600 MG TABLET.SA PO SCH (09:30)
[2020-02-09] MEDS: CARVEDILOL 12.5 MG TABLET PO SCH (09:30)
[2020-02-09] MEDS: SACUBITRIL/VALSARTAN 49 MG/51 MG TABLET PO SCH (09:30)
[2020-02-09] MEDS: FUROSEMIDE 40 MG TABLET PO SCH (09:31)
[2020-02-09] MEDS: ASPIRIN 81 MG TABLET, CHEWABLE PO SCH (09:31)
[2020-02-09 12:07] VITALS: BP 138/54
== END 2020-02-09 16:01 | DRG 190 ==
LOC: ER 07:46 → EH 11:59 → 4N 17:23
PROVIDERS: ADMIT Internal Medicine; ATTEND Physician Assistant
PROC: 5A09557 Assistance with Respiratory Ventilation, Greater than 96 Consecutive Hours, Continuous Positive Airway Pressure (ICD-10-PCS; principal; 2020-01-30)
DX: J44.1 Chronic obstructive pulmonary disease with (acute) exacerbation (principal); I50.43 Acute on chronic combined systolic (congestive) and diastolic (congestive) heart failure; I11.0 Hypertensive heart disease with heart failure; E11.9 Type 2 diabetes mellitus without complications; E87.5 Hyperkalemia; E78.5 Hyperlipidemia, unspecified; E11.621 Type 2 diabetes mellitus with foot ulcer; L97.519 Non-pressure chronic ulcer of other part of right foot with unspecified severity; F17.210 Nicotine dependence, cigarettes, uncomplicated; E11.65 Type 2 diabetes mellitus with hyperglycemia; I87.8 Other specified disorders of veins; G25.81 Restless legs syndrome; Z20.828 Contact with and (suspected) exposure to other viral communicable diseases; Z79.51 Long term (current) use of inhaled steroids; Z79.82 Long term (current) use of aspirin; Z79.899 Other long term (current) drug therapy; Z79.01 Long term (current) use of anticoagulants; Z95.5 Presence of coronary angioplasty implant and graft; I25.2 Old myocardial infarction; Z89.612 Acquired absence of left leg above knee; Z82.49 Family history of ischemic heart disease and other diseases of the circulatory system; Z82.3 Family history of stroke
CPT/HCPCS: 36415; 36600; 71045; 76705; 80048; 80053; 81001; 82550; 82553; 82803; 82962; 83880; 84484; 85025; 85027; 85610; 85730; 87040; 87635; 93005; 93010; 94640; 94660; 94667; 94668; 94799; 96374; 99291; J1815; J1940; J2920; J3490; J7030; J7512; J7620